=== PATIENT | female | born 1965 | race Caucasian/White ===

== ENCOUNTER 2019-08-20 06:38 | Emergency (ER) | payer OTHER ==
--- NOTE | 2019-08-20 07:32 | ERPHSYRPT ---
- History of Present Illness Time Seen by Provider: 08/20/19 07:06 Source: patient Exam Limitations: no limitations Patient Subjective Stated Complaint: pt states, "my b/p was high this morning, 159/94, so I took a clonidine and it didn't get any better". My head feels weird. Triage Nursing Assessment: wheeled pt to rm 6, pt alert and oriented, cooperative and pleasant. pt c/o htn, dizziness, top of head feels funny. Lungs clear, heart tones reg, abd soft with active bs x4 quad, non-tender. Physician History: 54 yo presented with with h/o HTN taking lisionpril/clonidine on PRN bases is here with BP 159 systolic this morning and tool clonidine , later while driving to work felt pressure bitemporal/frontal area of dull mild intensity and felt lightheaded. patient reports she had similar episodes before and was recently evaluated at [facility] with negative CT head w/wo contrast/MRI. She denies any chest pain /palpitations or SOB. She is very anxious . per patient she is feeling better at present since she has taken clonidine. denies any numbness/ tigling or weakness. no spinning sensation/blurry vision etc. per patient she checks her BP every morning and if it is less than 130 she quits antihypertensive . no h/o CAD /DM but does have vertigo at times but this is not like vertiginous sx but some pressurein frontal area. Timing/Duration: today Severity of Pain-Max: none Severity of Pain-Current: none Modifying Factors: Improves With: nothing Nitro Today/Relief: no nitro taken today Aspirin Treatment Today: no aspirin today Associated Symptoms: headaches Prior Chest Pain/Cardiac Workup: echocardiography Allergies/Adverse Reactions: No Known Drug Allergies Allergy (Unverified 08/20/19 06:51) Home Medications: Alprazolam 0.25 mg [xanAX 0.25 MG] 0.25 mg PO TID PRN PRN 08/20/19 [ History] Lisinopril 10 mg [Zestril 10 MG] 10 mg PO DAILY PRN PRN 08/20/19 [History] Meclizine HCl 25 mg PO TID PRN 08/20/19 [History] cloNIDine HCl [Clonidine HCl] 0.1 mg PO DAILY PRN PRN 08/20/19 [History] Hx Tetanus, Diphtheria Vaccination/Date Given: Yes Hx Influenza Vaccination/Date Given: No Hx Pneumococcal Vaccination/Date Given: No Immunizations Up to Date: Yes - Review of Systems Constitutional: No Symptoms Eyes: No Symptoms Ears, Nose, & Throat: No Symptoms Respiratory: No Symptoms Cardiac: No Symptoms Abdominal/Gastrointestinal: No Symptoms Genitourinary Symptoms: No Symptoms Musculoskeletal: No Symptoms Neurological: Dizziness, Headache Psychological: No Symptoms Endocrine: No Symptoms Hematologic/Lymphatic: No Symptoms - Past Medical History Pertinent Past Medical History: Yes Neurological History: Migraines ENT History: No Pertinent History Cardiac History: Hypertension Respiratory History: No Pertinent History Endocrine Medical History: Hypothyroidism Musculoskeletal History: No Pertinent History GI Medical History: No Pertinent History History: No Pertinent History Psycho-Social History: No Pertinent History Female Reproductive Disorders: No Pertinent History - Past Surgical History Past Surgical History: Yes Neuro Surgical History: No Pertinent History Cardiac: No Pertinent History Respiratory: No Pertinent History Gastrointestinal: No Pertinent History Genitourinary: No Pertinent History Musculoskeletal: Other Female Surgical History: No Pertinent History Other Surgical History: staple removed from heel - Social History Smoking Status: Never smoker Exposure to second hand smoke: Yes Drug Use: none Patient Lives Alone: No - Female History Hx Now: No - Nursing Vital Signs Nursing Vital Signs: Initial Vital Signs Temperature 97.5 F 08/20/19 06:49 Pulse Rate 88 08/20/19 06:49 Respiratory Rate 15 08/20/19 06:49 Blood Pressure 164/109 08/20/19 06:49 O2 Sat by Pulse Oximetry 99 08/20/19 06:49 Pain Scale Pain Intensity 0 - Physical Exam General Appearance: no apparent distress Eye Exam: PERRL/EOMI, eyes nml inspection Ears, Nose, Throat Exam: normal ENT inspection, TMs normal, pharynx normal Neck Exam: normal inspection, non-tender, supple, full range of motion Respiratory Exam: normal breath sounds, lungs clear Cardiovascular Exam: regular rate/rhythm, normal heart sounds, normal peripheral pulses Gastrointestinal/Abdomen Exam: soft, normal bowel sounds Back Exam: normal inspection, normal range of motion, CVA tenderness Extremity Exam: normal inspection, normal range of motion, pelvis stable Neurologic Exam: alert, oriented x 3, cooperative, activity specialist II-XII nml as tested, normal mood/affect, nml cerebellar function, nml station & gait, sensation nml Skin Exam: normal color SpO2 Interpretation: normal SpO2: 99 O2 Delivery: Room Air Ordered Tests: Active Orders 24 hr Category Date Time Status EKG-ER Only STAT Care 08/20/19 07:48 Active Orthostatic Vital Signs STAT Care 08/20/19 07:37 Active CHEST 1 VIEW (PORTABLE) Stat Exams 08/20/19 07:35 Taken CBC W DIFF Stat Lab 08/20/19 07:34 Completed CMP Stat Lab 08/20/19 07:34 Completed LIPASE Stat Lab 08/20/19 08:31 Completed NT PRO BNP Stat Lab 08/20/19 07:34 Completed TROPONIN Q3H Lab 08/20/19 07:45 Completed TROPONIN Q3H Lab 08/20/19 10:45 Ordered TROPONIN Q3H Lab 08/20/19 13:45 Ordered TROPONIN Q3H Lab 08/20/19 16:45 Ordered TROPONIN Q3H Lab 08/20/19 19:45 Ordered Medication Summary Discontinued Medications Generic Name Dose Route Start Last Admin Trade Name Freq PRN Reason Stop Dose Admin Aspirin 324 mg 08/20/19 07:36 08/20/19 07:46 Baby Aspirin 81 Mg Chew PO 08/20/19 07:37 324 mg STAT ONE Administration Aspirin Confirm 08/20/19 07:38 Baby Aspirin 81 Mg Chew Administered 08/20/19 07:39 Dose 324 mg .ROUTE .STK-MED ONE Lisinopril 10 mg 08/20/19 07:36 08/20/19 07:46 Zestril 10 Mg PO 08/20/19 07:37 10 mg STAT STA Administration Lab/Rad Data: Laboratory Result Diagrams 08/20/19 07:34 08/20/19 07:34 Laboratory Results 08/20/19 08/20/19 08/20/19 Range/Units 08:31 07:45 07:34 WBC (4.0-10.5) K/mm3 RBC (4.1-5.4) M/mm3 Hgb (12.0-16.0) gm/dl Hct (35-47) % MCV (78-100) fl MCH (26-32) pg MCHC (32-36) g/dl RDW (11.5-14.0) % Plt Count (150-450) K/mm3 MPV (6-9.5) fl Gran % (36.0-66.0) % Eos # (Auto) (0-0.5) Absolute Lymphs (auto) (1.0-4.6) Absolute Monos (auto) (0.0-1.3) Lymphocytes % (24.0-44.0) % Monocytes % (0.0-12.0) % Eosinophils % (0.00-5.0) % Basophils % (0.0-0.4) % Absolute Granulocytes (1.4-6.9) Basophils # (0-0.4) Sodium 143 (137-145) mmol/L Potassium 4.4 (3.5-5.1) mmol/L Chloride 108 H (98-107) mmol/L Carbon Dioxide 26 (22-30) mmol/L Anion Gap 14.1 (5-15) MEQ/L BUN 10 (7-17) mg/dL Creatinine 0.87 (0.52-1.04) mg/dL Estimated GFR > 60.0 ML/MIN Glucose 92 (74-106) mg/dL Calcium 9.6 (8.4-10.2) mg/dL Total Bilirubin 0.40 (0.2-1.3) mg/dL AST 30 (14-36) U/L ALT 18 (0-35) U/L Alkaline Phosphatase 65 (38-126) U/L Troponin I < 0.012 (0.000-0.034) ng/mL NT-Pro-B Natriuret Pep 73.9 (0-900) pg/mL Serum Total Protein 7.4 (6.3-8.2) g/dL Albumin 4.3 (3.5-5.0) g/dL Lipase 50 (23-300) U/L 08/20/19 Range/Units 07:34 WBC 4.2 (4.0-10.5) K/mm3 RBC 4.60 (4.1-5.4) M/mm3 Hgb 14.0 (12.0-16.0) gm/dl Hct 43.3 (35-47) % MCV 94.1 (78-100) fl MCH 30.4 (26-32) pg MCHC 32.3 (32-36) g/dl RDW 13.9 (11.5-14.0) % Plt Count 213 (150-450) K/mm3 MPV 10.5 H (6-9.5) fl Gran % 53.5 (36.0-66.0) % Eos # (Auto) 0.09 (0-0.5) Absolute Lymphs (auto) 1.37 (1.0-4.6) Absolute Monos (auto) 0.45 (0.0-1.3) Lymphocytes % 32.4 (24.0-44.0) % Monocytes % 10.6 (0.0-12.0) % Eosinophils % 2.1 (0.00-5.0) % Basophils % 1.4 (0.0-0.4) % Absolute Granulocytes 2.26 (1.4-6.9) Basophils # 0.06 (0-0.4) Sodium (137-145) mmol/L Potassium (3.5-5.1) mmol/L Chloride (98-107) mmol/L Carbon Dioxide (22-30) mmol/L Anion Gap (5-15) MEQ/L BUN (7-17) mg/dL Creatinine (0.52-1.04) mg/dL Estimated GFR ML/MIN Glucose (74-106) mg/dL Calcium (8.4-10.2) mg/dL Total Bilirubin (0.2-1.3) mg/dL AST (14-36) U/L ALT (0-35) U/L Alkaline Phosphatase (38-126) U/L Troponin I (0.000-0.034) ng/mL NT-Pro-B Natriuret Pep (0-900) pg/mL Serum Total Protein (6.3-8.2) g/dL Albumin (3.5-5.0) g/dL Lipase (23-300) U/L - Progress Progress: improved, re-examined Air Movement: good Progress Note: 54 his old is evaluated for uncontrolled hypertension with mild headache and dizzy feeling. She has nonfocal neuro exam to her stay in the ER. EKG showed normal sinus rhythm with no acute ST elevations or depressions. She has negative troponins. Chest x-ray negative for any acute findings. She has cloudy frontoparietal and I have given her routine dose of lisinopril 10 mg, evaluation fiber pressures and 130s. Her pressure sensation/lightheaded feeling is improved. She did not have any chest pain or palpitations to her stay in the ER. I have counseled the patient in length about medication compliance especially lisinopril taking regularly other than as when necessary medications. She is advised to keep a log of blood pressure and followup outpatient primary care. At this time symptoms are worsening needed return to ER which he seemed understanding. Stable for discharge. 08/20/19 09:36 Counseled pt/family regarding: lab results, diagnosis, need for follow-up, rad results - Departure Departure Disposition: Home Clinical Impression: Uncontrolled hypertension Condition: Stable Critical Care Time: No Referrals: [place] DOMINGUEZ, SINKER PULLER [Primary Care Provider] - Follow Up with PCP/3 days ( followup in 2-3 days. Keep blood pressure log) Additional Instructions: dateyour own blood pressure medications regularly as recommended. Take clonidine as needed if blood pressure greater than 160. Keep her blood pressure rule out and follow up with primary care for reevaluation. Return to ER for uncontrolled blood pressure, headache, dizziness, lightheadedness, chest pain or shortness of breath etc.
[2019-08-20] MEDS ORDERED: BABY ASPIRIN 81 MG CHEW ONE (07:38)
[2019-08-20] MEDS: BABY ASPIRIN 81 MG CHEW PO ONE (07:46)
[2019-08-20] MEDS: Zestril 10 MG PO STA (07:46)
[2019-08-20 07:50] LABS: Absolute Neutrophil Ct (ANC) 2.26 (1.4-6.9); BASOPHIL % 1.4 % (0.0-0.4); Basophil (Absolute #) 0.06 (0-0.4); Eosinophil % 2.1 % (0.00-5.0); Eosinophil (Absolute #) 0.09 (0-0.5); Hematocrit 43.3 % (35-47); Lymphocyte (Absolute #) 1.37 (1.0-4.6); Lymphocytes % 32.4 % (24.0-44.0); Mean Cell Volume 94.1 fl (78-100); Mean Corpuscular Hemoglobin 30.4 pg (26-32); Mean Corpuscular Hgb Concent. 32.3 g/dl (32-36); Mean Platelet Volume 10.5 fl (6-9.5); Monocyte (Absolute #) 0.45 (0.0-1.3); Monocytes % 10.6 % (0.0-12.0); Neutrophil % 53.5 % (36.0-66.0); Platelet Count 213 K/mm3 (150-450); Red Cell Distribution Width 13.9 % (11.5-14.0); White Blood Count 4.2 K/mm3 (4.0-10.5)
[2019-08-20 08:14] LABS: ALBUMIN 4.3 g/dL (3.5-5.0); ALKALINE PHOSPHATASE 65 U/L (38-126); ANION GAP 14.1 MEQ/L (5-15); BLOOD UREA NITROGEN 10 mg/dL (7-17); CHLORIDE 108 mmol/L (98-107); Calcium 9.6 mg/dL (8.4-10.2); Carbon Dioxide 26 mmol/L (22-30); Creatinine 1 0.87 mg/dL (0.52-1.04); Glucose 92 mg/dL (74-106); NT PRO BNP 73.9 pg/mL (0-900); Potassium 4.4 mmol/L (3.5-5.1); SGOT/AST 30 U/L (14-36); SGPT/ALT 18 U/L (0-35); SODIUM 143 mmol/L (137-145); Total Protein 7.4 g/dL (6.3-8.2)
[2019-08-20 09:22] VITALS: BP 133/95; PULSE 74
[2019-08-20 09:41] VITALS: O2SAT 99
--- NOTE | 2019-08-20 09:44 | XRAY ---
Indication: Elevated blood pressure. Lightheadedness. Comparison: May 25, 2015. Portable chest again demonstrates normal heart and lungs with incidental right upper lobe calcified granuloma. Bony thorax intact again with bilateral breast implants. No new/acute findings.
== END 2019-08-20 09:51 | disposition home or self-care (01) ==
LOC: ED 06:38
DX: I10 Essential (primary) hypertension (principal); R51 Headache; R42 Dizziness and giddiness; Z79.899 Other long term (current) drug therapy
CPT/HCPCS: 36415; 71045; 80053; 83690; 83880; 84484; 85025; 93005; 99284; A9270-GY

== ENCOUNTER 2019-09-11 05:04 | Emergency (ER) | payer OTHER ==
--- NOTE | 2019-09-11 05:22 | ERPHSYRPT ---
- History of Present Illness Source: patient Exam Limitations: no limitations Timing/Duration: intermittent, gradual onset Severity: mild Associated Symptoms: other (dizziness, numbness left upper ext) Hx Tetanus, Diphtheria Vaccination/Date Given: Yes Hx Influenza Vaccination/Date Given: No Hx Pneumococcal Vaccination/Date Given: No <YADI PERSAUD - Last Filed: 09/11/19 06:59> <NONI CAROLINA - Last Filed: 09/11/19 10:47> - History of Present Illness Time Seen by Provider: 09/11/19 05:22 Physician History: 54 y/o tearful, anxious white female with h/o htn, headaches, recurrent vertigo/ dizziness on lisinopril, clonidine, xanax and antivert present with dizziness. pt seen in this ED 08/20/19 for same issue. pt under went a recent ct head and mri of head pt reports findings negative. pt has had these sx for at least 6 months. (YADI PERSAUD) Allergies/Adverse Reactions: No Known Drug Allergies Allergy (Verified 09/11/19 05:28) Home Medications: Alprazolam 0.25 mg [xanAX 0.25 MG] 0.25 mg PO TID PRN PRN 08/20/19 [ History] Lisinopril 10 mg [Zestril 10 MG] 10 mg PO DAILY PRN PRN 08/20/19 [History] Meclizine HCl 25 mg PO TID PRN 08/20/19 [History] cloNIDine HCl [Clonidine HCl] 0.1 mg PO DAILY PRN PRN 08/20/19 [History] Levothyroxine Sodium 88 Mcg [Synthroid 88 Mcg] 88 mcg PO DAILY 09/11/19 [ History] - Review of Systems Constitutional: No Symptoms Eyes: No Symptoms Ears, Nose, & Throat: No Symptoms Respiratory: No Symptoms Cardiac: No Symptoms Abdominal/Gastrointestinal: No Symptoms Genitourinary Symptoms: No Symptoms Musculoskeletal: No Symptoms Neurological: Dizziness, Parasthesia Psychological: Anxiety Endocrine: No Symptoms Hematologic/Lymphatic: No Symptoms Immunological/Allergic: No Symptoms All Other Systems: Reviewed and Negative <YADI PERSAUD - Last Filed: 10/30/19 06:59> - Past Medical History Pertinent Past Medical History: Yes Neurological History: Migraines ENT History: No Pertinent History Cardiac History: Hypertension Respiratory History: No Pertinent History Endocrine Medical History: Hypothyroidism Musculoskeletal History: No Pertinent History GI Medical History: No Pertinent History History: No Pertinent History Psycho-Social History: No Pertinent History Female Reproductive Disorders: No Pertinent History - Past Surgical History Past Surgical History: Yes Neuro Surgical History: No Pertinent History Cardiac: No Pertinent History Respiratory: No Pertinent History Gastrointestinal: No Pertinent History Genitourinary: No Pertinent History Musculoskeletal: Other Female Surgical History: No Pertinent History Other Surgical History: staple removed from heel - Social History Smoking Status: Never smoker Exposure to second hand smoke: Yes Drug Use: none Patient Lives Alone: No <YADI PERSAUD - Last Filed: 09/11/19 06:59> - Physical Exam General Appearance: mild distress, alert, anxiety, other (tearful) Eye Exam: PERRL/EOMI, eyes nml inspection Ears, Nose, Throat Exam: normal ENT inspection, moist mucous membranes Neck Exam: normal inspection, non-tender, supple, full range of motion Respiratory Exam: normal breath sounds, lungs clear, airway intact, No chest tenderness, No respiratory distress Cardiovascular Exam: regular rate/rhythm, normal heart sounds, normal peripheral pulses Gastrointestinal/Abdomen Exam: soft, normal bowel sounds, No tenderness Pelvic Exam: not done Rectal Exam: not done Back Exam: normal inspection, normal range of motion, No CVA tenderness, No vertebral tenderness Extremity Exam: normal inspection, normal range of motion, pelvis stable Neurologic Exam: alert, oriented x 3, cooperative, web analytics developer II-XII nml as tested, normal mood/affect, nml cerebellar function, nml station & gait, sensation nml, No facial droop, No slurred speech Skin Exam: normal color, warm, dry Lymphatic Exam: No adenopathy SpO2 Interpretation: normal O2 Delivery: Room Air <YADI PERSAUD - Last Filed: 09/11/19 06:59> - Nursing Vital Signs Nursing Vital Signs: Initial Vital Signs Temperature 97.5 F 09/11/19 05:14 Pulse Rate 96 H 09/11/19 05:14 Respiratory Rate 18 09/11/19 05:14 Blood Pressure 179/117 09/11/19 05:14 O2 Sat by Pulse Oximetry 98 09/11/19 05:14 Pain Scale Pain Intensity 0 - Course Nursing assessment & vital signs reviewed: Yes EKG Interpreted by Me: RATE (81), Sinus Rhythm, NORMAL AXIS, NORMAL INTERVALS, NORMAL QRS, Other (08/20/19 comparison ekg no changes. ) <YADI PERSAUD - Last Filed: 09/11/19 06:59> Ordered Tests: Active Orders 24 hr Category Date Time Status EKG-ER Only STAT Care 09/11/19 06:13 Active NPO (ED) STAT Care 09/11/19 06:10 Active CHEST WITH CONTRAST [CT] Stat Exams 09/11/19 06:58 Completed HEAD WITHOUT CONTRAST [CT] Stat Exams 09/11/19 06:11 Completed VENOUS UNILAT/LIMITED EXTREMIT [US] Stat Exams 09/11/19 06:36 Completed CBC W DIFF Stat Lab 09/11/19 06:00 Completed CMP Stat Lab 09/11/19 06:00 Completed D-DIMER QUANTITATION Stat Lab 09/11/19 06:00 Completed PROTIME WITH INR Stat Lab 09/11/19 06:00 Completed TROPONIN Q3H Lab 09/11/19 06:00 Completed TROPONIN Q3H Lab 09/11/19 09:50 Received TROPONIN Q3H Lab 09/11/19 12:15 Ordered TROPONIN Q3H Lab 09/11/19 15:15 Ordered TROPONIN Q3H Lab 09/11/19 18:15 Ordered TROPONIN Q3H Lab 09/11/19 21:15 Ordered UA W/RFX UR CULTURE Stat Lab 09/11/19 07:23 Completed Medication Summary Discontinued Medications Generic Name Dose Route Start Last Admin Trade Name Haiderq PRN Reason Stop Dose Admin Acetaminophen 1,000 mg 09/11/19 07:28 09/11/19 07:29 Tylenol Extra Strength 500 Mg PO 09/11/19 07:29 1,000 mg STAT STA Administration Acetaminophen Confirm 09/11/19 07:27 Tylenol Extra Strength 500 Mg Administered 09/11/19 07:28 Dose 1,000 mg .ROUTE .[employer]MED ONE Lab/Rad Data: Laboratory Result Diagrams 09/11/19 06:00 09/11/19 06:00 Laboratory Results 09/11/19 09/11/19 09/11/19 Range/Units 07:23 06:00 06:00 WBC (4.0-10.5) K/mm3 RBC (4.1-5.4) M/mm3 Hgb (12.0-16.0) gm/dl Hct (35-47) % MCV (78-100) fl MCH (26-32) pg MCHC (32-36) g/dl RDW (11.5-14.0) % Plt Count (150-450) K/mm3 MPV (6-9.5) fl Gran % (36.0-66.0) % Eos # (Auto) (0-0.5) Absolute Lymphs (auto) (1.0-4.6) Absolute Monos (auto) (0.0-1.3) Lymphocytes % (24.0-44.0) % Monocytes % (0.0-12.0) % Eosinophils % (0.00-5.0) % Basophils % (0.0-0.4) % Absolute Granulocytes (1.4-6.9) Basophils # (0-0.4) PT 11.0 (9.95-12.35) SECONDS INR 0.97 (0.8-3.0) D-Dimer 899 H* (215-500) ng/mL Sodium (137-145) mmol/L Potassium (3.5-5.1) mmol/L Chloride (98-107) mmol/L Carbon Dioxide (22-30) mmol/L Anion Gap (5-15) MEQ/L BUN (7-17) mg/dL Creatinine (0.52-1.04) mg/dL Estimated GFR ML/MIN Glucose (74-106) mg/dL Calcium (8.4-10.2) mg/dL Total Bilirubin (0.2-1.3) mg/dL AST (14-36) U/L ALT (0-35) U/L Alkaline Phosphatase (38-126) U/L Troponin I < 0.012 (0.000-0.034) ng/mL Serum Total Protein (6.3-8.2) g/dL Albumin (3.5-5.0) g/dL Urine Color STRAW (YELLOW) Urine Appearance CLEAR (CLEAR) Urine pH 8.0 (5-6) Ur Specific [place] 1.005 (1.005-1.025) Urine Protein NEGATIVE (Negative) Urine Ketones NEGATIVE (NEGATIVE) Urine Blood NEGATIVE (0-5) Alejandro/ul Urine Nitrite NEGATIVE (NEGATIVE) Urine Bilirubin NEGATIVE (NEGATIVE) Urine Urobilinogen NEGATIVE (0-1) mg/dL Ur Leukocyte Esterase NEGATIVE (NEGATIVE) Urine WBC (Auto) NONE (0-5) /HPF Urine RBC (Auto) NONE (0-2) /HPF U Epithel Cells (Auto) NONE (FEW) /HPF Urine Bacteria (Auto) NONE (NEGATIVE) /HPF Urine Mucus (Auto) SLIGHT (NEGATIVE) /HPF Urine Culture Reflexed NO (NO) Urine Glucose NEGATIVE (NEGATIVE) mg/dL 09/11/19 09/11/19 Range/Units 06:00 06:00 WBC 4.2 (4.0-10.5) K/mm3 RBC 4.46 (4.1-5.4) M/mm3 Hgb 14.0 (12.0-16.0) gm/dl Hct 41.6 (35-47) % MCV 93.3 (78-100) fl MCH 31.4 (26-32) pg MCHC 33.7 (32-36) g/dl RDW 13.4 (11.5-14.0) % Plt Count 226 (150-450) K/mm3 MPV 10.5 H (6-9.5) fl Gran % 45.0 (36.0-66.0) % Eos # (Auto) 0.12 (0-0.5) Absolute Lymphs (auto) 1.76 (1.0-4.6) Absolute Monos (auto) 0.39 (0.0-1.3) Lymphocytes % 42.1 (24.0-44.0) % Monocytes % 9.3 (0.0-12.0) % Eosinophils % 2.9 (0.00-5.0) % Basophils % 0.7 (0.0-0.4) % Absolute Granulocytes 1.88 (1.4-6.9) Basophils # 0.03 (0-0.4) PT (9.95-12.35) SECONDS INR (0.8-3.0) D-Dimer (215-500) ng/mL Sodium 144 (137-145) mmol/L Potassium 3.9 (3.5-5.1) mmol/L Chloride 108 H (98-107) mmol/L Carbon Dioxide 28 (22-30) mmol/L Anion Gap 11.6 (5-15) MEQ/L BUN 11 (7-17) mg/dL Creatinine 0.83 (0.52-1.04) mg/dL Estimated GFR > 60.0 ML/MIN Glucose 94 (74-106) mg/dL Calcium 10.1 (8.4-10.2) mg/dL Total Bilirubin 0.40 (0.2-1.3) mg/dL AST 37 H (14-36) U/L ALT 19 (0-35) U/L Alkaline Phosphatase 63 (38-126) U/L Troponin I (0.000-0.034) ng/mL Serum Total Protein 7.4 (6.3-8.2) g/dL Albumin 4.2 (3.5-5.0) g/dL Urine Color (YELLOW) Urine Appearance (CLEAR) Urine pH (5-6) Ur Specific [place] (1.005-1.025) Urine Protein (Negative) Urine Ketones (NEGATIVE) Urine Blood (0-5) Alejandro/ul Urine Nitrite (NEGATIVE) Urine Bilirubin (NEGATIVE) Urine Urobilinogen (0-1) mg/dL Ur Leukocyte Esterase (NEGATIVE) Urine WBC (Auto) (0-5) /HPF Urine RBC (Auto) (0-2) /HPF U Epithel Cells (Auto) (FEW) /HPF Urine Bacteria (Auto) (NEGATIVE) /HPF Urine Mucus (Auto) (NEGATIVE) /HPF Urine Culture Reflexed (NO) Urine Glucose (NEGATIVE) mg/dL <YADI PERSAUD - Last Filed: 09/11/19 06:59> - Progress Progress: improved, re-examined Counseled pt/family regarding: lab results, diagnosis, need for follow-up, rad results <NONI CAROLINA - Last Filed: 09/11/19 10:47> - Progress Progress Note: 09/11/19 06:[address] [place]. i reviewed pt hx and condition with him. i reviewed list of pending studies (YADI PERSAUD) 54 years old they state that to me at the end of Dr. Enrique shift with pending workup. Patient presented with dizziness/lightheadedness which is going on for months, has been evaluated at [facility] with negative CT /MRI head. She has numbness in the left medial hand intermittently for quite some time and today she's felt numbness in the left medial forearm area with some burning sensation. She does not have any altered sensation at present. This could be isolated to lead related to ulnar nerve compression. She does not have any other focal neuro deficit. Broad workup was done including CT head which is negative. Negative troponins x2. She has negative ultrasound left upper extremity and CTA chest. Patient is very anxious, recommended outpatient followup with primary-care/neurology for reevaluation. Discuss signs symptoms or worsening itching return to the ER but she seems understanding. Stable for discharge. 09/11/19 10:40 (NONI CAROLINA) <YADI PERSAUD - Last Filed: 09/11/19 06:59> - Departure Departure Disposition: Home Critical Care Time: No <NONI CAROLNIA - Last Filed: 09/11/19 10:47> - Departure Clinical Impression: Dizziness, Anxiety Condition: Stable Referrals: DOCTOR,NO FAMILY [Primary Care Provider] - LUBA SINGH MD [ACTIVE STAFF] - Follow Up with PCP (1-2 days ) Additional Instructions: followup with primary care and neurology for reevaluation. Return to ER for any worsening.
[2019-09-11 06:22] LABS: Absolute Neutrophil Ct (ANC) 1.88 (1.4-6.9); BASOPHIL % 0.7 % (0.0-0.4); Basophil (Absolute #) 0.03 (0-0.4); Eosinophil % 2.9 % (0.00-5.0); Eosinophil (Absolute #) 0.12 (0-0.5); Hematocrit 41.6 % (35-47); Lymphocyte (Absolute #) 1.76 (1.0-4.6); Lymphocytes % 42.1 % (24.0-44.0); Mean Cell Volume 93.3 fl (78-100); Mean Corpuscular Hemoglobin 31.4 pg (26-32); Mean Corpuscular Hgb Concent. 33.7 g/dl (32-36); Mean Platelet Volume 10.5 fl (6-9.5); Monocyte (Absolute #) 0.39 (0.0-1.3); Monocytes % 9.3 % (0.0-12.0); Platelet Count 226 K/mm3 (150-450); Red Blood Count 4.46 M/mm3 (4.1-5.4); Red Cell Distribution Width 13.4 % (11.5-14.0); White Blood Count 4.2 K/mm3 (4.0-10.5)
[2019-09-11 06:24] LABS: INR 0.97 (0.8-3.0)
[2019-09-11 06:29] LABS: ALBUMIN 4.2 g/dL (3.5-5.0); ALKALINE PHOSPHATASE 63 U/L (38-126); ANION GAP 11.6 MEQ/L (5-15); BLOOD UREA NITROGEN 11 mg/dL (7-17); CHLORIDE 108 mmol/L (98-107); Calcium 10.1 mg/dL (8.4-10.2); Carbon Dioxide 28 mmol/L (22-30); Creatinine 1 0.83 mg/dL (0.52-1.04); Glucose 94 mg/dL (74-106); Potassium 3.9 mmol/L (3.5-5.1); SGOT/AST 37 U/L (14-36); SGPT/ALT 19 U/L (0-35); SODIUM 144 mmol/L (137-145); Total Protein 7.4 g/dL (6.3-8.2)
[2019-09-11] MEDS ORDERED: TYLENOL EXTRA STRENGTH 500 MG ONE (07:27)
[2019-09-11] MEDS ORDERED: TYLENOL EXTRA STRENGTH 500 MG PO STA (07:28)
[2019-09-11 08:39] LABS: Appearance CLEAR (CLEAR); Bilirubin NEGATIVE (NEGATIVE); Blood NEGATIVE Ery/ul (0-5); Glucose NEGATIVE (NEGATIVE); Ketones NEGATIVE (NEGATIVE); Leukocyte Esterase NEGATIVE (NEGATIVE); Mucus SLIGHT /HPF (NEGATIVE); Nitrite NEGATIVE (NEGATIVE); Protein,Urine Dip NEGATIVE (Negative); Specific Gravity 1.005 (1.005-1.025); Urobilinogen NEGATIVE mg/dL (0-1)
[2019-09-11 08:44] VITALS: BP 127/73
--- NOTE | 2019-09-11 08:44 | XRAY ---
Indication: Left upper extremity numbness. Dizziness. Multiple contiguous axial images obtained through the head without contrast. Comparison: None Age-appropriate global atrophy and minimal periventricular degenerative micro-ischemia. No acute intracranial hemorrhage, abnormal extra-axial fluid collection, or mass effect. Fourth ventricle is midline without hydrocephalus. Streeter-white matter differentiation preserved. Bony calvarium intact. Visualized paranasal sinuses and mastoid air cells are clear. Impression: Normal aging brain. No acute intracranial abnormalities. CTDI 58.66
--- NOTE | 2019-09-11 08:51 | XRAY ---
Indication: Left arm numbness. Two-dimensional sonogram and color Doppler imaging of the major venous vessels of the left upper extremity was performed. Comparison: None No thrombus seen in the visualized left internal jugular, subclavian, axillary, cephalic, brachial, basilic, radial, and ulnar veins. Veins demonstrate normal compressibility. Venous waveforms are normal with and without augmentation. Impression: Left upper extremity negative for DVT.
--- NOTE | 2019-09-11 09:39 | XRAY ---
Indication: Elevated d-dimer. Multiple contiguous axial images obtained through the chest using 80 cc Isovue 370 contrast and PE protocol. Comparison: None There is good opacification of the pulmonary arteries including lobar and segmental branches. No filling defect or pulmonary embolus. Heart is not enlarged. Aorta is normal in course and caliber. No pathologic mediastinal/hilar lymphadenopathy. Lungs are inflated with minimal bilateral dependent atelectasis, minimal bibasilar fibrosis/scarring, and tiny right upper lobe calcified granuloma. No suspicious pulmonary mass, infiltrate, or effusion. Bony thorax intact. There are bilateral breast implants. Limited upper abdomen demonstrates 1.3 cm peripheral right lobe hepatic cyst versus hemangioma. Impression: 1. Negative pulmonary embolus. No acute cardiopulmonary abnormalities. 2. Incidental minimal fibrosis/scarring, right upper lobe calcified granuloma, bilateral breast implants, and hepatic cyst versus hemangioma. CT DI 7.89
[2019-09-11 10:27] VITALS: O2SAT 100
[2019-09-11 10:49] VITALS: PULSE 58
== END 2019-09-11 11:19 | disposition home or self-care (01) ==
LOC: ED 05:04
DX: R42 Dizziness and giddiness (principal); F41.9 Anxiety disorder, unspecified
CPT/HCPCS: 36000; 36415; 70450; 71260; 80053; 81001; 84484; 85025; 85379; 85610; 93005; 93971; 99284; A9270-GY

== ENCOUNTER 2020-04-12 13:54 | Emergency (ER) | payer OTHER ==
[2020-04-12 15:03] LABS: Absolute Neutrophil Ct (ANC) 4.25 (1.4-6.9); BASOPHIL % 0.4 % (0.0-0.4); Basophil (Absolute #) 0.03 (0-0.4); Eosinophil % 1.5 % (0.00-5.0); Hematocrit 40.8 % (35-47); Hemoglobin 13.7 gm/dl (12.0-16.0); Lymphocyte (Absolute #) 1.87 (1.0-4.6); Lymphocytes % 27.4 % (24.0-44.0); Mean Cell Volume 93.4 fl (78-100); Mean Corpuscular Hemoglobin 31.4 pg (26-32); Mean Corpuscular Hgb Concent. 33.6 g/dl (32-36); Mean Platelet Volume 10.2 fl (7.5-11.0); Monocyte (Absolute #) 0.57 (0.0-1.3); Monocytes % 8.4 % (0.0-12.0); Neutrophil % 62.3 % (36.0-66.0); Platelet Count 240 K/mm3 (150-450); Red Blood Count 4.37 M/mm3 (4.1-5.4); White Blood Count 6.8 K/mm3 (4.0-10.5)
[2020-04-12 15:05] LABS: Appearance CLEAR (CLEAR); Bilirubin NEGATIVE (NEGATIVE); Blood NEGATIVE Ery/ul (0-5); Glucose NEGATIVE (NEGATIVE); Ketones NEGATIVE (NEGATIVE); Leukocyte Esterase NEGATIVE (NEGATIVE); Mucus SLIGHT /HPF (NEGATIVE); Nitrite NEGATIVE (NEGATIVE); Protein,Urine Dip NEGATIVE (Negative); Specific Gravity 1.005 (1.005-1.025); Urobilinogen NEGATIVE mg/dL (0-1)
[2020-04-12 15:14] LABS: ALBUMIN 4.6 g/dL (3.5-5.0); ALKALINE PHOSPHATASE 78 U/L (38-126); ANION GAP 15.9 MEQ/L (5-15); BLOOD UREA NITROGEN 15 mg/dL (7-17); CHLORIDE 100 mmol/L (98-107); Calcium 9.7 mg/dL (8.4-10.2); Carbon Dioxide 26 mmol/L (22-30); Glucose 95 mg/dL (74-106); MAGNESIUM 2.1 mg/dL (1.6-2.3); Potassium 3.6 mmol/L (3.5-5.1); SGOT/AST 34 U/L (14-36); SGPT/ALT 21 U/L (0-35); SODIUM 139 mmol/L (137-145); Total Protein 7.7 g/dL (6.3-8.2)
--- NOTE | 2020-04-12 16:19 | ERPHSYRPT ---
- History of Present Illness Time Seen by Provider: 04/12/20 14:15 Source: patient Exam Limitations: no limitations Patient Subjective Stated Complaint: pt to ER with complaints of confusion or a drunk feeling since around 0930 this morning. pt states she has had episodes like this before and has seen specialist in [place] for it. pt states BP has been high. Triage Nursing Assessment: pt A&Ox4. pt ambulatory with assist. pt answering questions clearly. pt Physician History: 54 years old female with history of hypertension, hypothyroidism, migraine, issues with the balance is currently doing follow-up with balance clinic presented in the ER with weird feeling of confusion/trouble concentrating and feeling drunk and as if she is sleepy all the time. This started around 9:30 AM today. It lasted for almost an hour and improved. No seizure-like activity noticed. No headache. Patient report having similar symptoms multiple times in the past without any warning signs and has been thoroughly evaluated with MRI , CT head with no acute findings. Patient denies any numbness tingling or focal weakness. Patient is very anxious, starts crying while interview as she is frustrated, does not know what is going on with her and it is been going on for such a long time no one can figure it out. Denies any chest pain palpitations or shortness of breath. Denies any visual symptoms, facial weakness or difficulty speech. Timing/Duration: today, sudden, improved Severity: moderate Character of Deficits: none Deficits: no difficulties Baseline/Normal Cognition: alert oriented x 3 Current Cognition: alert oriented x 3 Baseline Gait: walks w/o assistance Associated Symptoms: confusion, fatigue, No muscle spasms, No numbness/tingling in legs/feet, No ringing in ears, No trouble walking Allergies/Adverse Reactions: No Known Drug Allergies Allergy (Verified 04/12/20 14:12) Home Medications: Alprazolam 0.25 mg [xanAX 0.25 MG] 0.25 mg PO TID PRN PRN 08/20/19 [ History] Lisinopril 10 mg [Zestril 10 MG] 10 mg PO DAILY PRN PRN 08/20/19 [History] cloNIDine HCL [Clonidine HCl] 0.1 mg PO DAILY PRN PRN 08/20/19 [History] Levothyroxine Sodium 88 Mcg [Synthroid 88 Mcg] 88 mcg PO DAILY 09/11/19 [ History] Hx Tetanus, Diphtheria Vaccination/Date Given: Yes Hx Influenza Vaccination/Date Given: No Hx Pneumococcal Vaccination/Date Given: No Immunizations Up to Date: Yes Travel Risk - International Travel Have you traveled outside of the country in past 3 weeks: No Have you or anyone close to you been diagnosed with or: No Do your reside in a community with a known COVID-19 case?: Yes If Yes where:: [place] - Coronavirus Screening Has patient experienced Coronavirus symptoms: No - Review of Systems Constitutional: Fatigue Eyes: No Symptoms Ears, Nose, & Throat: No Symptoms Respiratory: No Symptoms Cardiac: No Symptoms Abdominal/Gastrointestinal: No Symptoms Genitourinary Symptoms: No Symptoms Musculoskeletal: No Symptoms Skin: No Symptoms Psychological: No Symptoms Endocrine: No Symptoms Hematologic/Lymphatic: No Symptoms Immunological/Allergic: No Symptoms - Past Medical History Pertinent Past Medical History: Yes Neurological History: Migraines ENT History: No Pertinent History Cardiac History: Hypertension Respiratory History: No Pertinent History Endocrine Medical History: Hypothyroidism Musculoskeletal History: No Pertinent History GI Medical History: No Pertinent History History: No Pertinent History Psycho-Social History: No Pertinent History Female Reproductive Disorders: No Pertinent History - Past Surgical History Past Surgical History: Yes Neuro Surgical History: No Pertinent History Cardiac: No Pertinent History Respiratory: No Pertinent History Gastrointestinal: No Pertinent History Genitourinary: No Pertinent History Musculoskeletal: Other Female Surgical History: No Pertinent History Other Surgical History: staple removed from heel - Social History Smoking Status: Never smoker Exposure to second hand smoke: Yes Drug Use: none Patient Lives Alone: No - Female History Hx Now: No - Nursing Vital Signs Nursing Vital Signs: Initial Vital Signs Temperature 98.0 F 04/12/20 14:01 Pulse Rate 105 H 04/12/20 14:01 Respiratory Rate 12 04/12/20 14:01 Blood Pressure 185/117 04/12/20 14:01 O2 Sat by Pulse Oximetry 99 04/12/20 14:01 Pain Scale Pain Intensity 0 - [place] Coma Scale Best Eye Response ([place]): (4) open spontaneously Best Verbal Response ([place]): (5) oriented Best Motor Response ([place]): (6) obeys commands [place] Total: 15 - Physical Exam General Appearance: no apparent distress, alert, anxiety Eye Exam: bilateral eye: normal inspection, PERRL, EOMI Ears, Nose, Throat Exam: normal ENT inspection, TMs normal, pharynx normal Neck Exam: normal inspection, non-tender, supple, full range of motion Respiratory: normal breath sounds, chest tenderness, lungs clear Cardiovascular: regular rate/rhythm, normal heart sounds Gastrointestinal: soft, normal bowel sounds, No tenderness Back Exam: normal inspection, normal range of motion Extremity Exam: normal inspection, normal range of motion Mental Status: alert, oriented x 3, cooperative edge baster Exam: normal hearing, normal speech, PERRL Coordination/Gait: normal finger to nose, normal gait, normal cerebellar function Motor/Sensory: no motor deficit, no sensory deficit, no pronator drift, negative Babinski's sign DTR: bicep (R): 2+, bicep (L): 2+, knee (R): 2+, knee (L): 2+ Skin Exam: normal color SpO2 Interpretation: normal SpO2: 100 O2 Delivery: Room Air - Course Nursing assessment & vital signs reviewed: Yes EKG Interpreted by Me: RATE (94), NORMAL AXIS, NORMAL INTERVALS, NORMAL QRS Ordered Tests: Active Orders 24 hr Category Date Time Status [facility] Representative STAT Care 04/12/20 14:42 Active EKG-ER Only STAT Care 04/12/20 14:41 Active CHEST 1 VIEW (PORTABLE) Stat Exams 04/12/20 14:42 Taken HEAD WITHOUT CONTRAST [CT] Stat Exams 04/12/20 14:42 Taken CBC W DIFF Stat Lab 04/12/20 15:01 Completed CMP Stat Lab 04/12/20 15:01 Completed MAGNESIUM Stat Lab 04/12/20 15:01 Completed TROPONIN Q3H Lab 04/12/20 15:01 Completed UA W/RFX UR CULTURE Stat Lab 04/12/20 15:01 Completed Lab/Rad Data: Laboratory Result Diagrams 04/12/20 15:01 04/12/20 15:01 Laboratory Results 04/12/20 04/12/20 04/12/20 Range/Units 15:01 15:01 15:01 WBC (4.0-10.5) K/mm3 RBC (4.1-5.4) M/mm3 Hgb (12.0-16.0) gm/dl Hct (35-47) % MCV (78-100) fl MCH (26-32) pg MCHC (32-36) g/dl RDW (11.5-14.0) % Plt Count (150-450) K/mm3 MPV (7.5-11.0) fl Gran % (36.0-66.0) % Eos # (Auto) (0-0.5) Absolute Lymphs (auto) (1.0-4.6) Absolute Monos (auto) (0.0-1.3) Lymphocytes % (24.0-44.0) % Monocytes % (0.0-12.0) % Eosinophils % (0.00-5.0) % Basophils % (0.0-0.4) % Absolute Granulocytes (1.4-6.9) Basophils # (0-0.4) Sodium 139 (137-145) mmol/L Potassium 3.6 (3.5-5.1) mmol/L Chloride 100 (98-107) mmol/L Carbon Dioxide 26 (22-30) mmol/L Anion Gap 15.9 H (5-15) MEQ/L BUN 15 (7-17) mg/dL Creatinine 0.80 (0.52-1.04) mg/dL Estimated GFR > 60.0 ML/MIN Glucose 95 (74-106) mg/dL Calcium 9.7 (8.4-10.2) mg/dL Magnesium 2.1 (1.6-2.3) mg/dL Total Bilirubin 0.40 (0.2-1.3) mg/dL AST 34 (14-36) U/L ALT 21 (0-35) U/L Alkaline Phosphatase 78 (38-126) U/L Troponin I < 0.012 (0.000-0.034) ng/mL Serum Total Protein 7.7 (6.3-8.2) g/dL Albumin 4.6 (3.5-5.0) g/dL Urine Color STRAW (YELLOW) Urine Appearance CLEAR (CLEAR) Urine pH 6.0 (5-6) Ur Specific [place] 1.005 (1.005-1.025) Urine Protein NEGATIVE (Negative) Urine Ketones NEGATIVE (NEGATIVE) Urine Blood NEGATIVE (0-5) Alejandro/ul Urine Nitrite NEGATIVE (NEGATIVE) Urine Bilirubin NEGATIVE (NEGATIVE) Urine Urobilinogen NEGATIVE (0-1) mg/dL Ur Leukocyte Esterase NEGATIVE (NEGATIVE) Urine WBC (Auto) NONE (0-5) /HPF Urine RBC (Auto) NONE (0-2) /HPF U Epithel Cells (Auto) NONE (FEW) /HPF Urine Bacteria (Auto) NONE (NEGATIVE) /HPF Urine Mucus (Auto) SLIGHT (NEGATIVE) /HPF Urine Culture Reflexed NO (NO) Urine Glucose NEGATIVE (NEGATIVE) mg/dL 04/12/20 Range/Units 15:01 WBC 6.8 (4.0-10.5) K/mm3 RBC 4.37 (4.1-5.4) M/mm3 Hgb 13.7 (12.0-16.0) gm/dl Hct 40.8 (35-47) % MCV 93.4 (78-100) fl MCH 31.4 (26-32) pg MCHC 33.6 (32-36) g/dl RDW 13.0 (11.5-14.0) % Plt Count 240 (150-450) K/mm3 MPV 10.2 (7.5-11.0) fl Gran % 62.3 (36.0-66.0) % Eos # (Auto) 0.10 (0-0.5) Absolute Lymphs (auto) 1.87 (1.0-4.6) Absolute Monos (auto) 0.57 (0.0-1.3) Lymphocytes % 27.4 (24.0-44.0) % Monocytes % 8.4 (0.0-12.0) % Eosinophils % 1.5 (0.00-5.0) % Basophils % 0.4 (0.0-0.4) % Absolute Granulocytes 4.25 (1.4-6.9) Basophils # 0.03 (0-0.4) Sodium (137-145) mmol/L Potassium (3.5-5.1) mmol/L Chloride (98-107) mmol/L Carbon Dioxide (22-30) mmol/L Anion Gap (5-15) MEQ/L BUN (7-17) mg/dL Creatinine (0.52-1.04) mg/dL Estimated GFR ML/MIN Glucose (74-106) mg/dL Calcium (8.4-10.2) mg/dL Magnesium (1.6-2.3) mg/dL Total Bilirubin (0.2-1.3) mg/dL AST (14-36) U/L ALT (0-35) U/L Alkaline Phosphatase (38-126) U/L Troponin I (0.000-0.034) ng/mL Serum Total Protein (6.3-8.2) g/dL Albumin (3.5-5.0) g/dL Urine Color (YELLOW) Urine Appearance (CLEAR) Urine pH (5-6) Ur Specific [place] (1.005-1.025) Urine Protein (Negative) Urine Ketones (NEGATIVE) Urine Blood (0-5) Alejandro/ul Urine Nitrite (NEGATIVE) Urine Bilirubin (NEGATIVE) Urine Urobilinogen (0-1) mg/dL Ur Leukocyte Esterase (NEGATIVE) Urine WBC (Auto) (0-5) /HPF Urine RBC (Auto) (0-2) /HPF U Epithel Cells (Auto) (FEW) /HPF Urine Bacteria (Auto) (NEGATIVE) /HPF Urine Mucus (Auto) (NEGATIVE) /HPF Urine Culture Reflexed (NO) Urine Glucose (NEGATIVE) mg/dL - Progress Progress: improved, re-examined Progress Note: 04/12/20 patient has nonfocal neuro exam and here. She is very anxious. I have done stroke work-up with CT negative for any acute findings patient has similar episodes multiple times in the past and has been evaluated outpatient by ENT and neurologist. I do not know the exact cause of her symptoms. I have consulted tele neurology who have evaluated patient and do not think patient has symptoms and presentation consistent with CVA, recommended outpatient EEG/ sleep study and some other labs. Part of her symptoms could be secondary to anxiety. Recommended outpatient follow-up with neurology which patient has been doing already. At this point I do not think patient needs to be admitted and is stable for discharge with outpatient follow-up. Discussed signs symptoms of worsening needing return to ER which she seemed understanding. Discussed with Dr.: Other (teleneuro Dr. Cutler) Counseled pt/family regarding: lab results, diagnosis, need for follow-up, rad results - Departure Departure Disposition: Home Clinical Impression: Neurological complaint, Anxiety Condition: Stable Critical Care Time: No Referrals: LUBA SINGH MD [Primary Care Provider] - (1-2 days for re evaluation and getting out patient workup like YUNIEL, TSH, Mag, vitamin D, B12, EEG AND SLEEP STUDY ) DALE PEREZ [NON-STAFF PHY W/O PRIVILEGES] - (For reevaluation, sleep study, EEG Follow-up in 1 to 3 days) Additional Instructions: Follow-up with your primary care for further testing like TSH/magnesium/vitamin B12/vitamin D/YUNIEL/sleep study and EEG. Follow-up with neurology Dr. Sutherland for further evaluation. Return to ER for any worsening.
[2020-04-12 17:30] VITALS: BP 133/87; PULSE 88
[2020-04-12 20:22] VITALS: O2SAT 100
--- NOTE | 2020-04-12 22:28 | XRAY ---
Indication: Confusion. Comparison: August 20, 2019. Portable chest again demonstrates normal heart, lungs, and bony thorax with incidental right upper lung calcified granuloma. No new/acute findings.
--- NOTE | 2020-04-12 22:32 | XRAY ---
Indication: Infusion. Acute mental status change. Multiple contiguous axial images obtained through the head without contrast. Comparison: September 11, 2019. Again age-appropriate global atrophy and minimal periventricular degenerative micro-ischemia bilaterally. No acute intracranial hemorrhage, abnormal extra-axial fluid collection, or mass effect. Fourth ventricle is midline without hydrocephalus. Bony calvarium intact. Visualized paranasal sinuses and mastoid air cells are clear. Impression: Atrophy and degenerative micro-ischemia within normal limits for patient's age. No new or acute intracranial abnormalities. Comment: Preliminary interpretation was made by [facility]. No critical discrepancy.
== END 2020-04-12 17:36 | disposition home or self-care (01) ==
LOC: ED 13:54
DX: R29.818 Other symptoms and signs involving the nervous system (principal); F41.9 Anxiety disorder, unspecified; R41.0 Disorientation, unspecified; I10 Essential (primary) hypertension; E03.9 Hypothyroidism, unspecified; Z79.899 Other long term (current) drug therapy
CPT/HCPCS: 36415; 70450; 71045; 80053; 81001; 83735; 84484; 85025; 93005; 93041; 99284

== ENCOUNTER 2020-11-12 20:34 | Emergency (ER) | payer OTHER ==
[2020-11-12] MEDS ORDERED: Zofran 4 MG/2 ML VIAL IV ONE (21:01)
[2020-11-12] MEDS ORDERED: Sodium Chloride 0.9% 1000 ML 1,000 ML IV STA (21:01)
[2020-11-12] MEDS ORDERED: Sodium Chloride 0.9% 1000 ML 1,000 ML ONE (21:13)
[2020-11-12] MEDS ORDERED: Zofran 4 MG/2 ML VIAL ONE (21:13)
[2020-11-12 21:15] LABS: Absolute Neutrophil Ct (ANC) 3.48 (1.4-6.9); BASOPHIL % 0.7 % (0.0-0.4); Basophil (Absolute #) 0.07 (0-0.4); Eosinophil % 5.7 % (0.00-5.0); Eosinophil (Absolute #) 0.56 (0-0.5); Hematocrit 40.9 % (35-47); Hemoglobin 13.3 gm/dl (12.0-16.0); Lymphocyte (Absolute #) 4.92 (1.0-4.6); Lymphocytes % 50.3 % (24.0-44.0); Mean Cell Volume 95.6 fl (78-100); Mean Corpuscular Hemoglobin 31.1 pg (26-32); Mean Corpuscular Hgb Concent. 32.5 g/dl (32-36); Mean Platelet Volume 10.6 fl (7.5-11.0); Monocyte (Absolute #) 0.76 (0.0-1.3); Monocytes % 7.8 % (0.0-12.0); Neutrophil % 35.5 % (36.0-66.0); Platelet Count 257 K/mm3 (150-450); Red Blood Count 4.28 M/mm3 (4.1-5.4); Red Cell Distribution Width 13.2 % (11.5-14.0); White Blood Count 9.8 K/mm3 (4.0-10.5)
[2020-11-12] MEDS ORDERED: Ativan 1 MG ONE (21:27)
[2020-11-12 21:28] LABS: ALBUMIN 4.6 g/dL (3.5-5.0); ALKALINE PHOSPHATASE 72 U/L (38-126); ANION GAP 15.4 MEQ/L (5-15); BLOOD UREA NITROGEN 19 mg/dL (7-17); CHLORIDE 106 mmol/L (98-107); Calcium 9.8 mg/dL (8.4-10.2); Carbon Dioxide 21 mmol/L (22-30); Creatinine 1 0.99 mg/dL (0.52-1.04); EST GLOMERULAR FILTRATION RATE > 60.0 ML/MIN; ETHYL ALCOHOL 32 mg/dL (0-10); Glucose 91 mg/dL (74-106); MAGNESIUM 2.5 mg/dL (1.6-2.3); Potassium 3.4 mmol/L (3.5-5.1); SGOT/AST 35 U/L (14-36); SGPT/ALT 24 U/L (0-35); SODIUM 139 mmol/L (137-145); Total Protein 7.8 g/dL (6.3-8.2)
--- NOTE | 2020-11-12 21:29 | ERPHSYRPT ---
- History of Present Illness Time Seen by Provider: 11/12/20 20:37 Patient Subjective Stated Complaint: per ems, pt has been c/o dizziness and blurred vision. pt states she may have passed out and was incont at scene. pt st ates she had 3 small glasses of wine tonight. pupils equal and rective. bilat upper and lower ext strength equal and wnl. Triage Nursing Assessment: pt alert and oriented, answers questions approp. pt arrive [facility] ambulance[facility] assist of 3. respirations nonlabored with lungs cta. skin pink warm and dry. Physician History: 55 years old female with history of hypertension, hypothyroidism, anxiety, issues with balance is brought in the ER by EMS with chief complaint of dizziness and lightheadedness prior to arrival. Patient reports she had 3 glasses of wine [address] and started to feel weird with difficulty se eing straight having some blurry vision, leading to collapse and transient loss of consciousness for few seconds on presentation in the ER she is complaining of. She was also found to be incontinent of urine although she does not know how that happened. Numbness/tingling sensation on the left face upper and lower extremities. Denies any chest pain palpitations or shortness of breath. Denies any upper or lower extremity weakness but generally weak weak tired and lethargic. Denies having headaches and no seizure-like activity noticed by friends. Patient reports having similar symptoms in the past as well and MRI brain was negative. She also had a Holter monitoring done with a brief run of Lilo jennings with [facility] but does not take any anticoagulants. Timing/Duration: today, improved Severity: moderate Character of Deficits: altered sensation Deficits: no difficulties Baseline/Normal Cognition: alert oriented x 3 Current Cognition: alert oriented x 3 Baseline Gait: walks w/o assistance Associated Symptoms: denies symptoms, vision changes, No numbness/tingling in legs/feet Allergies/Adverse Reactions: No Known Drug Allergies Allergy (Verified 11/12/20 21:03) Home Medications: Alprazolam 0.25 mg [xanAX 0.25 MG] 0.25 mg PO TID PRN PRN 08/20/19 [History] Lisinopril 10 mg [Zestril 10 MG] 5 mg PO DAILY 08/20/19 [History] Levothyroxine Sodium 88 Mcg [Synthroid 88 Mcg] 75 mcg PO DAILY 09/11/19 [History] Metoprolol Succinate 25 mg Xl* [Toprol-Xl 25MG Tablets] 25 mg PO DAILY 11/12/20 [History] Hx Tetanus, Diphtheria Vaccination/Date Given: Yes Hx Influenza Vaccination/Date Given: No Hx Pneumococcal Vaccination/Date Given: No Travel Risk - International Travel Have you traveled outside of the country in past 3 weeks: No - Coronavirus Screening Are you exhibiting any of the following symptoms?: No Close contact with a COVID-19 positive Pt in past 14-21 Days: No - Review of Systems Constitutional: Fatigue Eyes: Vision Changes Ears, Nose, & Throat: No Symptoms Respiratory: No Symptoms Cardiac: No Symptoms Abdominal/Gastrointestinal: No Symptoms Genitourinary Symptoms: No Symptoms Musculoskeletal: No Symptoms Skin: No Symptoms Neurological: Dizziness Psychological: Anxiety Endocrine: No Symptoms Hematologic/Lymphatic: No Symptoms Immunological/Allergic: No Symptoms - Past Medical History Pertinent Past Medical History: Yes Neurological History: Migraines ENT History: No Pertinent History Cardiac History: Hypertension Respiratory History: No Pertinent History Endocrine Medical History: Hypothyroidism Musculoskeletal History: No Pertinent History GI Medical History: No Pertinent History History: No Pertinent History Psycho-Social History: No Pertinent History Female Reproductive Disorders: No Pertinent History - Past Surgical History Past Surgical History: Yes Neuro Surgical History: No Pertinent History Cardiac: No Pertinent History Respiratory: No Pertinent History Gastrointestinal: No Pertinent History Genitourinary: No Pertinent History Musculoskeletal: Other Female Surgical History: No Pertinent History Other Surgical History: staple removed from heel - Social History Smoking Status: Never smoker Exposure to second hand smoke: Yes Drug Use: none Patient Lives Alone: No - Nursing Vital Signs Nursing Vital Signs: Initial Vital Signs Temperature 97.8 F 11/12/20 20:37 Pulse Rate 72 11/12/20 20:37 Respiratory Rate 16 11/12/20 20:37 Blood Pressure 111/77 11/12/20 20:37 O2 Sat by Pulse Oximetry 100 11/12/20 20:37 Pain Scale Pain Intensity 0 - Martin Coma Scale Best Eye Response (Martin): (4) open spontaneously Best Verbal Response ([place]): (5) oriented Best Motor Response ([place]): (6) obeys commands [place] Total: 15 - Physical Exam General Appearance: no apparent distress, alert, anxiety Eye Exam: bilateral eye: normal inspection, PERRL, EOMI Ears, Nose, Throat Exam: normal ENT inspection, TMs normal, pharynx normal Neck Exam: normal inspection, non-tender, supple, full range of motion Respiratory: normal breath sounds, lungs clear Cardiovascular: regular rate/rhythm, normal heart sounds Gastrointestinal: soft, normal bowel sounds, No tenderness Back Exam: normal inspection, normal range of motion Extremity Exam: normal inspection, normal range of motion Mental Status: alert, oriented x 3, cooperative, 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: normal hearing, normal speech, PERRL Coordination/Gait: normal finger to nose Motor/Sensory: no motor deficit, no pronator drift, negative Babinski's sign, sensory deficit (Mild decrease sensation of touch in the left half of body), No pronator drift (R), No pronator drift (L) DTR: bicep (R): 2+, bicep (L): 2+, knee (R): 2+, knee (L): 2+ Skin Exam: normal color SpO2 Interpretation: normal SpO2: 100 O2 Delivery: Room Air - Course EKG Interpreted by Me: RATE (80), Sinus Rhythm, NORMAL AXIS, NORMAL INTERVALS, NORMAL QRS Ordered Tests: Active Orders 24 hr Category Date Time Status EKG-ER Only STAT Care 11/12/20 21:01 Active IV Insertion STAT Care 11/12/20 21:01 Active Orthostatic Vital Signs STAT Care 11/12/20 21:02 Active CHEST 1 VIEW (PORTABLE) Stat Exams 11/12/20 21:[address] ANGIOGRAPHY NECK [CT] Stat Exams 11/12/20 22:34 Taken CTA HEAD W AND/OR WO CONTRAST [CT] Stat Exams 11/12/20 22:34 Taken HEAD WITHOUT CONTRAST [CT] Stat Exams 11/12/20 20:41 Completed CBC W DIFF Stat Lab 11/12/20 21:00 Completed CMP Stat Lab 11/12/20 21:00 Completed ETHYL ALCOHOL Stat Lab 11/12/20 21:00 Completed Lactic Acid Stat Lab 11/12/20 21:06 Completed Lactic Acid Stat Lab 11/12/20 23:23 Received MAGNESIUM Stat Lab 11/12/20 21:00 Completed TROPONIN Q3H Lab 11/13/20 00:15 Ordered TROPONIN Q3H Lab 11/13/20 03:15 Ordered TROPONIN Q3H Lab 11/13/20 06:15 Ordered TROPONIN Q3H Lab 11/13/20 09:15 Ordered TROPONIN Q3H Lab 11/12/20 21:00 Completed UA W/RFX UR CULTURE Stat Lab 11/12/20 22:55 Completed Urine Triage Profile Stat Lab 11/12/20 22:55 Completed Medication Summary Discontinued Medications Generic Name Dose Route Start Last Admin Trade Name Veronique PRN Reason Stop Dose Admin Aspirin 324 mg 11/12/20 22:34 11/12/20 22:48 Baby Aspirin 81 Mg Chew PO 11/12/20 22:35 324 mg STAT ONE Administration Sodium Chloride 1,000 mls @ 999 mls/hr 11/12/20 21:01 11/12/20 23:10 Sodium Chloride 0.9% 1000 Ml IV 11/12/20 22:01 Infused .Q1H1M STA Infusion Sodium Chloride Confirm 11/12/20 21:13 Sodium Chloride 0.9% 1000 Ml Administered 11/12/20 21:14 Dose 1,000 mls @ ud .ROUTE .STK-MED ONE Lorazepam Confirm 11/12/20 21:27 Ativan 1 Mg Administered 11/12/20 21:28 Dose 1 mg .ROUTE .STK-MED ONE Metoprolol Succinate 25 mg 11/13/20 00:08 11/13/20 00:10 Toprol-Xl 25mg Tablets PO 11/13/20 00:09 25 mg STAT ONE Administration Metoprolol Succinate Confirm 11/13/20 00:09 Toprol-Xl 25mg Tablets Administered 11/13/20 00:10 Dose 25 mg .ROUTE .STK-MED ONE Ondansetron HCl 4 mg 11/12/20 21:01 11/12/20 21:15 Zofran 4 Mg/2 Ml Vial IV 11/12/20 21:02 4 mg STAT ONE Administration Ondansetron HCl Confirm 11/12/20 21:13 Zofran 4 Mg/2 Ml Vial Administered 11/12/20 21:14 Dose 4 mg .ROUTE .STK-MED ONE Lab/Rad Data: Laboratory Result Diagrams 11/12/20 21:00 11/12/20 21:00 Laboratory Results 11/12/20 11/12/20 11/12/20 Range/Units 22:55 22:55 21:06 WBC (4.0-10.5) K/mm3 RBC (4.1-5.4) M/mm3 Hgb (12.0-16.0) gm/dl Hct (35-47) % MCV (78-100) fl MCH (26-32) pg MCHC (32-36) g/dl RDW (11.5-14.0) % Plt Count (150-450) K/mm3 MPV (7.5-11.0) fl Gran % (36.0-66.0) % Eos # (Auto) (0-0.5) Absolute Lymphs (auto) (1.0-4.6) Absolute Monos (auto) (0.0-1.3) Lymphocytes % (24.0-44.0) % Monocytes % (0.0-12.0) % Eosinophils % (0.00-5.0) % Basophils % (0.0-0.4) % Absolute Granulocytes (1.4-6.9) Basophils # (0-0.4) Sodium (137-145) mmol/L Potassium (3.5-5.1) mmol/L Chloride (98-107) mmol/L Carbon Dioxide (22-30) mmol/L Anion Gap (5-15) MEQ/L BUN (7-17) mg/dL Creatinine (0.52-1.04) mg/dL Estimated GFR ML/MIN Glucose (74-106) mg/dL Lactic Acid 3.9 H (0.4-2.0) Calcium (8.4-10.2) mg/dL Magnesium (1.6-2.3) mg/dL Total Bilirubin (0.2-1.3) mg/dL AST (14-36) U/L ALT (0-35) U/L Alkaline Phosphatase (38-126) U/L Troponin I (0.000-0.034) ng/mL Serum Total Protein (6.3-8.2) g/dL Albumin (3.5-5.0) g/dL Urine Color YELLOW (YELLOW) Urine Appearance CLEAR (CLEAR) Urine pH 5.0 (5-6) Ur Specific [place] 1.019 (1.005-1.025) Urine Protein NEGATIVE (Negative) Urine Ketones NEGATIVE (NEGATIVE) Urine Blood NEGATIVE (0-5) Alejandro/ul Urine Nitrite NEGATIVE (NEGATIVE) Urine Bilirubin NEGATIVE (NEGATIVE) Urine Urobilinogen NEGATIVE (0-1) mg/dL Ur Leukocyte Esterase NEGATIVE (NEGATIVE) Urine WBC (Auto) 3-5 (0-5) /HPF Urine RBC (Auto) NONE (0-2) /HPF U Epithel Cells (Auto) NONE (FEW) /HPF Urine Bacteria (Auto) NONE (NEGATIVE) /HPF Urine Mucus (Auto) SLIGHT (NEGATIVE) /HPF Urine Culture Reflexed NO (NO) Urine Glucose NEGATIVE (NEGATIVE) mg/dL Urine Opiates Level NEGATIVE (NEGATIVE) Ur Methadone NEGATIVE (NEGATIVE) Urine Barbiturates NEGATIVE (NEGATIVE) Ur Phencyclidine (PCP) NEGATIVE (NEGATIVE) Urine Amphetamine NEGATIVE (NEGATIVE) U Benzodiazepine Level NEGATIVE (NEGATIVE) Urine Cocaine NEGATIVE (NEGATIVE) Urine Marijuana (THC) NEGATIVE (NEGATIVE) Ethyl Alcohol (0-10) mg/dL 11/12/20 11/12/20 11/12/20 Range/Units 21:00 21:00 21:00 WBC 9.8 (4.0-10.5) K/mm3 RBC 4.28 (4.1-5.4) M/mm3 Hgb 13.3 (12.0-16.0) gm/dl Hct 40.9 (35-47) % MCV 95.6 (78-100) fl MCH 31.1 (26-32) pg MCHC 32.5 (32-36) g/dl RDW 13.2 (11.5-14.0) % Plt Count 257 (150-450) K/mm3 MPV 10.6 (7.5-11.0) fl Gran % 35.5 L (36.0-66.0) % Eos # (Auto) 0.56 H (0-0.5) Absolute Lymphs (auto) 4.92 H (1.0-4.6) Absolute Monos (auto) 0.76 (0.0-1.3) Lymphocytes % 50.3 H (24.0-44.0) % Monocytes % 7.8 (0.0-12.0) % Eosinophils % 5.7 H (0.00-5.0) % Basophils % 0.7 (0.0-0.4) % Absolute Granulocytes 3.48 (1.4-6.9) Basophils # 0.07 (0-0.4) Sodium 139 (137-145) mmol/L Potassium 3.4 L (3.5-5.1) mmol/L Chloride 106 (98-107) mmol/L Carbon Dioxide 21 L (22-30) mmol/L Anion Gap 15.4 H (5-15) MEQ/L BUN 19 H (7-17) mg/dL Creatinine 0.99 (0.52-1.04) mg/dL Estimated GFR > 60.0 ML/MIN Glucose 91 (74-106) mg/dL Lactic Acid (0.4-2.0) Calcium 9.8 (8.4-10.2) mg/dL Magnesium 2.5 H (1.6-2.3) mg/dL Total Bilirubin 0.20 (0.2-1.3) mg/dL AST 35 (14-36) U/L ALT 24 (0-35) U/L Alkaline Phosphatase 72 (38-126) U/L Troponin I < 0.012 (0.000-0.034) ng/mL Serum Total Protein 7.8 (6.3-8.2) g/dL Albumin 4.6 (3.5-5.0) g/dL Urine Color (YELLOW) Urine Appearance (CLEAR) Urine pH (5-6) Ur Specific [place] (1.005-1.025) Urine Protein (Negative) Urine Ketones (NEGATIVE) Urine Blood (0-5) Alejandro/ul Urine Nitrite (NEGATIVE) Urine Bilirubin (NEGATIVE) Urine Urobilinogen (0-1) mg/dL Ur Leukocyte Esterase (NEGATIVE) Urine WBC (Auto) (0-5) /HPF Urine RBC (Auto) (0-2) /HPF U Epithel Cells (Auto) (FEW) /HPF Urine Bacteria (Auto) (NEGATIVE) /HPF Urine Mucus (Auto) (NEGATIVE) /HPF Urine Culture Reflexed (NO) Urine Glucose (NEGATIVE) mg/dL Urine Opiates Level (NEGATIVE) Ur Methadone (NEGATIVE) Urine Barbiturates (NEGATIVE) Ur Phencyclidine (PCP) (NEGATIVE) Urine Amphetamine (NEGATIVE) U Benzodiazepine Level (NEGATIVE) Urine Cocaine (NEGATIVE) Urine Marijuana (THC) (NEGATIVE) Ethyl Alcohol 32 H (0-10) mg/dL - Progress Progress: improved Progress Note: 11/12/20 22:35 Patient is made stroke activate. Prompt CT head is obtained which is negative for any intracranial bleed, midline shift or mass-effect. EKG showed sinus rhythm with no acute ischemic changes. Chest x-ray negative. Work-up showed white count normal and a lactate of 3.9 with mildly low bicarb. Blood alcohol of 32. I have obtained [facility] neurology consult, have discussed with Dr. Sultana who has seen patient, recommended aspirin, MRI and other stroke work-up keeping in mind the fact that she has brief run of A. fib on the previous Holter monitoring and this could be the case with throwing a small clot and MRI would rule it out. With her loss of bladder control and elevated lactate/passing out as a suspicion of seizure and if MRI is negative recommended EEG. Do not have MRI services available over the weekend at [facility]. I have d/w at [facility], reviewed patient history, exam, work-up and neuro recommendation. Was recommended to have CTA head neck before transfer to rule out any large vessel occlusion in that case patient would be transferred to tertiary care center for intervention. Patient numbness and tingling sensation is improving. Plan discussed with patient understand and agrees with it. 11/13/20 00:15 CTA head and neck are negative. Patient is almost back to her baseline. Patient would be transferred to [facility]. Discussed with Dr.: Other (Raphael ) Counseled pt/family regarding: lab results, diagnosis, rad results - Departure Departure Disposition: Transfer Clinical Impression: Stroke-like symptoms Condition: Stable Critical Care Time: Yes Critical Care Time(excluding separately billable procedures): Critical 30-74 mins Referrals: LUBA SINGH MD [Primary Care Provider] -
--- NOTE | 2020-11-12 22:08 | XRAY ---
Indication: Dizziness. Comparison: April 12, 2020. Portable chest again demonstrates normal heart, lungs, and bony thorax with incidental right apical calcified granuloma.
--- NOTE | 2020-11-12 22:10 | XRAY ---
Indication: Dizziness, blurred vision, and head pressure. Multiple contiguous axial images obtained through the head without contrast. Comparison: April 12, 2020. Normal appearing brain parenchyma, ventricles, and bony calvarium. Visualized paranasal sinuses and mastoid air cells are clear. Impression: Normal CT head without contrast exam. Comment: Preliminary interpretation was made by [facility]. No critical discrepancy.
[2020-11-12] MEDS ORDERED: BABY ASPIRIN 81 MG CHEW PO ONE (22:34)
[2020-11-12 23:18] LABS: Appearance CLEAR (CLEAR); Bilirubin NEGATIVE (NEGATIVE); Blood NEGATIVE Ery/ul (0-5); Glucose NEGATIVE (NEGATIVE); Ketones NEGATIVE (NEGATIVE); Leukocyte Esterase NEGATIVE (NEGATIVE); Mucus SLIGHT /HPF (NEGATIVE); Nitrite NEGATIVE (NEGATIVE); Protein,Urine Dip NEGATIVE (Negative); Specific Gravity 1.019 (1.005-1.025); Urobilinogen NEGATIVE mg/dL (0-1)
[2020-11-12 23:32] LABS: Amphetamine,Urine NEGATIVE (NEGATIVE); Barbiturate,Urine NEGATIVE (NEGATIVE); Benzodiazepine,Urine NEGATIVE (NEGATIVE); Cocaine,Urine NEGATIVE (NEGATIVE); Methadone,Urine NEGATIVE (NEGATIVE); Opiate,Urine NEGATIVE (NEGATIVE); PCP,Urine NEGATIVE (NEGATIVE); THC,Urine NEGATIVE (NEGATIVE)
[2020-11-13] MEDS ORDERED: Toprol-Xl 25MG Tablets PO ONE (00:08)
[2020-11-13] MEDS ORDERED: Toprol-Xl 25MG Tablets ONE (00:09)
[2020-11-13 00:55] VITALS: BP 116/67; PULSE 84; O2SAT 98
--- NOTE | 2020-11-13 10:26 | XRAY ---
Indication: Blurry vision, dizziness, and pressure. Conventional contrast enhanced CTA neck performed using 80 cc Isovue 370 contrast. Two-dimensional sagittal and coronal reformatted images obtained. Additional 3-dimensional reformatted images obtained using a separate workstation. Comparison: None Visualized aortic arch is normal in course and caliber with anatomic variant for bovine aortic arch. Negative aneurysm/dissection. Left and right common carotid, carotid bulb, internal carotid, and external carotid arteries are normal in CTA appearance. Negative for AV malformation. Vertebral arteries are bilaterally symmetric with right slightly larger in caliber. Visualized soft tissues demonstrates a few subcentimeter cervical lymph nodes. No pathologic lymphadenopathy. Supra and infraglottic airway widely patent. Cervical spine intact. Lung apices are clear. CTA head reported separately. Impression: Normal CTA neck exam. Comment: Preliminary interpretation was made by [facility]. No critical discrepancy.
--- NOTE | 2020-11-13 10:28 | XRAY ---
Indication: Blurry vision, dizziness, and pressure. Conventional contrast enhanced CTA head performed using 80 cc Isovue 370 contrast. Two-dimensional sagittal and coronal reformatted images obtained. Additional 3-dimensional reformatted images obtained using a separate workstation. Comparison: None CTA neck reported separately. Distal internal carotid arteries are bilaterally symmetric with normal branching A1 and M1 segments. More distal anterior cerebral, middle cerebral, anterior communicating, and posterior communicating arteries are normal in CTA appearance. Posterior circulation demonstrates normal course and caliber to the basilar artery. Normal branching posterior cerebral and superior cerebellar arteries bilaterally. Remaining brain is negative for abnormal enhancing intra-/extra-axial or mass. Impression: Normal CTA head. Comment: Preliminary interpretation was made by [facility]. No critical discrepancy.
== END 2020-11-13 00:58 | disposition short-term general hospital (02) ==
LOC: ED 20:34
DX: R42 Dizziness and giddiness (principal); H53.8 Other visual disturbances; R55 Syncope and collapse; R20.0 Anesthesia of skin; R53.83 Other fatigue; I10 Essential (primary) hypertension; E03.9 Hypothyroidism, unspecified; I48.91 Unspecified atrial fibrillation; Z79.899 Other long term (current) drug therapy
CPT/HCPCS: 36000; 36415; 70450; 70496; 70498; 71045; 80053; 80307; 81001; 83605; 83735; 84484; 85025; 93005; 96360; 96374; 99285; 99291; J2405; A9270-GY; G0480

== ENCOUNTER 2020-11-17 10:11 | Inpatient (IN) | payer OTHER ==
--- NOTE | 2020-11-17 10:35 | ERPHSYRPT ---
- History of Present Illness Time Seen by Provider: 11/17/20 10:25 Source: patient Exam Limitations: no limitations Patient Subjective Stated Complaint: Pt states "I have been fighting with my blood pressure for awhile but this episode started on , I passed ou t and came to the ed here and they transferred me to [facility] and i was there overnight and released to follow up with my family dr. Dr. Calderon. She told me to call her when my pressure is up. I called her today because it was 158/111 and she told me to come to the ed." Triage Nursing Assessment: Pt has holter on. Dr. Dutton at [facility] ordered her to have the monitor on. PT presented alert and oriented X 3, skin pwd Pt ambulates with an upright steady gait, able to speak in clear full sentences. Pt in no apaprent respiratory distress. Pt moves all extremeties. Physician History: This is a 55-year-old white female patient of Dr. Calderon who has a history of hypertension and takes lisinopril in the morning and metoprolol at night and as needed clonidine. In addition, she has hypothyroidism and takes alprazolam on an as-needed basis. Patient was seen here in this emergency department on 11/12/2020 for similar symptoms including dizziness and generalized numbness and some blurred vision. Patient had a negative CAT scan of her head without contrast. In addition, a CTA of her head neck was negative. Patient was then transferred to [facility] in [facility] where she underwent an MRI and this was negative per patient report. Patient had a Holter monitor on at the time of that visit and Dr. Do has kept her on that Holter monitor. Patient states her symptoms never completely went away. She arrives feeling as though she is going to pass out and tearful. She states that she does not have chest pain. She does have a headache. She did take clonidine this morning as well as her lisinopril. She does not have fever. Patient states that she took her blood pressure this morning was elevated became concerned. She called her doctor's office who then told her to come to the emergency department. She denies any head injury. Timing/Duration: day(s) (A few days) Severity: moderate Associated Symptoms: headaches, other (Feeling as though she is going to pass out) Allergies/Adverse Reactions: No Known Drug Allergies Allergy (Verified 11/12/20 21:03) Home Medications: Lisinopril 10 mg [Zestril 10 MG] 5 mg PO DAILY 08/20/19 [History] Levothyroxine Sodium 88 Mcg [Synthroid 88 Mcg] 75 mcg PO DAILY 09/11/19 [History] Metoprolol Succinate 25 mg Xl* [Toprol-Xl 25MG Tablets] 25 mg PO DAILY 11/12/20 [History] Clonidine HCl [Clonidine HCl ER] 0.1 mg PO DAILY PRN 11/17/20 [History] Hx Tetanus, Diphtheria Vaccination/Date Given: No Hx Influenza Vaccination/Date Given: No Hx Pneumococcal Vaccination/Date Given: No Immunizations Up to Date: Yes Travel Risk - International Travel Have you traveled outside of the country in past 3 weeks: No - Coronavirus Screening Are you exhibiting any of the following symptoms?: No Close contact with a COVID-19 positive Pt in past 14-21 Days: No - Review of Systems Constitutional: No Symptoms Eyes: No Symptoms Ears, Nose, & Throat: No Symptoms Respiratory: No Symptoms Cardiac: No Symptoms Abdominal/Gastrointestinal: No Symptoms Genitourinary Symptoms: No Symptoms Musculoskeletal: No Symptoms Skin: No Symptoms Neurological: Headache Psychological: No Symptoms Endocrine: No Symptoms Hematologic/Lymphatic: No Symptoms Immunological/Allergic: No Symptoms All Other Systems: Reviewed and Negative - Past Medical History Pertinent Past Medical History: Yes Neurological History: Migraines ENT History: No Pertinent History Cardiac History: Hypertension Respiratory History: No Pertinent History Endocrine Medical History: Hypothyroidism Musculoskeletal History: No Pertinent History GI Medical History: No Pertinent History History: No Pertinent History Psycho-Social History: No Pertinent History Female Reproductive Disorders: No Pertinent History - Past Surgical History Past Surgical History: Yes Neuro Surgical History: No Pertinent History Cardiac: No Pertinent History Respiratory: No Pertinent History Gastrointestinal: No Pertinent History Genitourinary: No Pertinent History Musculoskeletal: Other Female Surgical History: No Pertinent History Other Surgical History: staple removed from heel - Social History Smoking Status: Former smoker Exposure to second hand smoke: Yes Drug Use: none Patient Lives Alone: No - Female History Hx Now: No - Nursing Vital Signs Nursing Vital Signs: Initial Vital Signs Temperature 98.6 F 11/17/20 10:15 Pulse Rate 77 11/17/20 10:15 Respiratory Rate 20 11/17/20 10:15 Blood Pressure 164/91 11/17/20 10:15 O2 Sat by Pulse Oximetry 99 11/17/20 10:15 Pain Scale Pain Intensity 8 - Physical Exam General Appearance: moderate distress, alert, anxiety, thin Eye Exam: PERRL/EOMI, eyes nml inspection Ears, Nose, Throat Exam: normal ENT inspection, moist mucous membranes Neck Exam: normal inspection, non-tender, supple, full range of motion Respiratory Exam: normal breath sounds, lungs clear, respiratory distress, airway intact, No chest tenderness Cardiovascular Exam: regular rate/rhythm, normal heart sounds, normal peripheral pulses Gastrointestinal/Abdomen Exam: soft, normal bowel sounds, No tenderness Pelvic Exam: not done Rectal Exam: not done Back Exam: normal inspection, normal range of motion, No CVA tenderness, No vertebral tenderness Extremity Exam: normal inspection, normal range of motion, pelvis stable Neurologic Exam: alert, oriented x 3, cooperative, receivable manager II-XII nml as tested, no rmal mood/affect, nml cerebellar function, nml station & gait, sensation nml Skin Exam: normal color, warm, dry Lymphatic Exam: No adenopathy SpO2 Interpretation: normal SpO2: 99 O2 Delivery: Room Air - Course Nursing assessment & vital signs reviewed: Yes EKG Interpreted by Me: RATE ([id number]), Sinus Rhythm, NORMAL AXIS, NORMAL INTERVALS, NORMAL QRS, NORMAL ST-T, Other (No acute ischemic changes on today's EKG. There are no changes from the EKG dated 11/12/2020) Ordered Tests: Active Orders 24 hr Category Date Time Status Clean Catch Urine Specimen STAT Care 11/17/20 10:40 Active EKG-ER Only STAT Care 11/17/20 10:40 Active IV Insertion STAT Care 11/17/20 10:40 Active HEAD WITHOUT CONTRAST [CT] Stat Exams 11/17/20 10:41 Completed CBC W DIFF Stat Lab 11/17/20 10:40 Completed CMP Stat Lab 11/17/20 10:56 Completed MAGNESIUM Stat Lab 11/17/20 10:56 Completed [place] Screen Stat Lab 11/17/20 10:56 Completed T4 (Thyroxine) Stat Lab 11/17/20 10:56 Completed TROPONIN Q3H Lab 11/17/20 10:56 Completed TROPONIN Q3H Lab 11/17/20 13:45 Ordered TROPONIN Q3H Lab 11/17/20 16:45 Ordered TROPONIN Q3H Lab 11/17/20 19:45 Ordered TROPONIN Q3H Lab 11/17/20 22:45 Ordered TSH [TSH, 3RD Generation] Stat Lab 11/17/20 10:56 Completed UA W/RFX UR CULTURE Stat Lab 11/17/20 11:37 Received Urine Triage Profile Stat Lab 11/17/20 11:37 Ordered Transfer Order Routine Transfer 11/17/20 Ordered Medication Summary Discontinued Medications Generic Name Dose Route Start Last Admin Trade Name Veronique PRN Reason Stop Dose Admin Lorazepam 1 mg 11/17/20 10:43 11/17/20 11:41 Ativan 2 Mg/1 Ml Vial IV 11/17/20 10:44 1 mg STAT ONE Administration Lorazepam Confirm 11/17/20 11:38 Ativan 2 Mg/1 Ml Vial Administered 11/17/20 11:39 Dose 2 mg .ROUTE .STK-MED ONE Morphine Sulfate 2 mg 11/17/20 10:43 11/17/20 11:42 Morphine Sulfate 2 Mg Inj IV 11/17/20 10:44 2 mg STAT ONE Administration Morphine Sulfate Confirm 11/17/20 11:38 Morphine Sulfate 2 Mg Inj Administered 11/17/20 11:39 Dose 2 mg .ROUTE .STK-MED ONE Ondansetron HCl 4 mg 11/17/20 10:40 11/17/20 11:40 Zofran 4 Mg/2 Ml Vial IV 11/17/20 10:41 4 mg STAT ONE Administration Ondansetron HCl Confirm 11/17/20 11:38 Zofran 4 Mg/2 Ml Vial Administered 11/17/20 11:39 Dose 4 mg .ROUTE .STK-MED ONE Lab/Rad Data: Laboratory Result Diagrams 11/17/20 10:40 11/17/20 10:56 Laboratory Results 11/17/20 11/17/20 11/17/20 Range/Units 10:56 10:56 10:56 WBC (4.0-10.5) K/mm3 RBC (4.1-5.4) M/mm3 Hgb (12.0-16.0) gm/dl Hct (35-47) % MCV (78-100) fl MCH (26-32) pg MCHC (32-36) g/dl RDW (11.5-14.0) % Plt Count (150-450) K/mm3 MPV (7.5-11.0) fl Gran % (36.0-66.0) % Eos # (Auto) (0-0.5) Absolute Lymphs (auto) (1.0-4.6) Absolute Monos (auto) (0.0-1.3) Lymphocytes % (24.0-44.0) % Monocytes % (0.0-12.0) % Eosinophils % (0.00-5.0) % Basophils % (0.0-0.4) % Absolute Granulocytes (1.4-6.9) Basophils # (0-0.4) Sodium (137-145) mmol/L Potassium (3.5-5.1) mmol/L Chloride (98-107) mmol/L Carbon Dioxide (22-30) mmol/L Anion Gap (5-15) MEQ/L BUN (7-17) mg/dL Creatinine (0.52-1.04) mg/dL Estimated GFR ML/MIN Glucose (74-106) mg/dL Calcium (8.4-10.2) mg/dL Magnesium (1.6-2.3) mg/dL Total Bilirubin (0.2-1.3) mg/dL AST (14-36) U/L ALT (0-35) U/L Alkaline Phosphatase (38-126) U/L Troponin I 0.001 (0.000-0.034) ng/mL Serum Total Protein (6.3-8.2) g/dL Albumin (3.5-5.0) g/dL Thyroxine (T4) 11.6 H (5.53-10.96) ug/dL TSH 3rd Generation (0.47-4.68) mIU/L Monoscreen NEGATIVE (Negative) 11/17/20 11/17/20 11/17/20 Range/Units 10:56 10:56 10:40 WBC 5.4 (4.0-10.5) K/mm3 RBC 4.38 (4.1-5.4) M/mm3 Hgb 13.5 (12.0-16.0) gm/dl Hct 41.6 (35-47) % MCV 95.0 (78-100) fl MCH 30.8 (26-32) pg MCHC 32.5 (32-36) g/dl RDW 13.0 (11.5-14.0) % Plt Count 257 (150-450) K/mm3 MPV 10.3 (7.5-11.0) fl Gran % 47.4 (36.0-66.0) % Eos # (Auto) 0.29 (0-0.5) Absolute Lymphs (auto) 1.98 (1.0-4.6) Absolute Monos (auto) 0.52 (0.0-1.3) Lymphocytes % 36.7 (24.0-44.0) % Monocytes % 9.6 (0.0-12.0) % Eosinophils % 5.4 H (0.00-5.0) % Basophils % 0.9 (0.0-0.4) % Absolute Granulocytes 2.55 (1.4-6.9) Basophils # 0.05 (0-0.4) Sodium 138 (137-145) mmol/L Potassium 4.4 (3.5-5.1) mmol/L Chloride 103 (98-107) mmol/L Carbon Dioxide 26 (22-30) mmol/L Anion Gap 13.5 (5-15) MEQ/L BUN 15 (7-17) mg/dL Creatinine 0.91 (0.52-1.04) mg/dL Estimated GFR > 60.0 ML/MIN Glucose 93 (74-106) mg/dL Calcium 9.9 (8.4-10.2) mg/dL Magnesium 2.1 (1.6-2.3) mg/dL Total Bilirubin 0.50 (0.2-1.3) mg/dL AST 43 H (14-36) U/L ALT 32 (0-35) U/L Alkaline Phosphatase 71 (38-126) U/L Troponin I (0.000-0.034) ng/mL Serum Total Protein 8.3 H (6.3-8.2) g/dL Albumin 4.8 (3.5-5.0) g/dL Thyroxine (T4) (5.53-10.96) ug/dL TSH 3rd Generation 6.380 H (0.47-4.68) mIU/L Monoscreen (Negative) - Progress Progress: improved, re-examined Progress Note: 11/17/20 12:03 This patient was down in the CAT scanner and being transferred on the CAT scan table when she suddenly "passed out" hitting her head posteriorly. There is a small abrasion with a small amount of bleeding present. The bleeding stopped. The CAT scan of her head without contrast was performed the results of this test show negative for any acute intracranial or extracranial process. An incident report is being filed by radiology. 11/17/20 12:23 Medical decision making: I spoke with Dr. Calderon who is the patient's primary care doctor. I reviewed the patient history, clinical findings and results of her EKG, lab work and x-rays. We will bring her into the hospital and place her in observation on a monitored bed. Patient does have a history of hypertension, neurogenic syncopal episodes and paroxysmal atrial fibrillation. We will repeat the EKG in the morning. Counseled pt/family regarding: lab results, diagnosis, need for follow-up, rad results - Departure Departure Disposition: Observation Clinical Impression: Hypertension, Neurogenic syncope, Headache, Head contusion Condition: Stable Critical Care Time: No Referrals: LUBA CALDERON MD [Primary Care Provider] -
[2020-11-17] MEDS ORDERED: Zofran 4 MG/2 ML VIAL IV ONE (10:40)
[2020-11-17] MEDS ORDERED: MORPHINE SULFATE 2 MG INJ IV ONE (10:43)
[2020-11-17] MEDS ORDERED: Ativan 2 MG/1 ML VIAL IV ONE (10:43)
[2020-11-17 10:50] LABS: Absolute Neutrophil Ct (ANC) 2.55 (1.4-6.9); BASOPHIL % 0.9 % (0.0-0.4); Basophil (Absolute #) 0.05 (0-0.4); Eosinophil % 5.4 % (0.00-5.0); Eosinophil (Absolute #) 0.29 (0-0.5); Hematocrit 41.6 % (35-47); Hemoglobin 13.5 gm/dl (12.0-16.0); Lymphocyte (Absolute #) 1.98 (1.0-4.6); Lymphocytes % 36.7 % (24.0-44.0); Mean Corpuscular Hemoglobin 30.8 pg (26-32); Mean Corpuscular Hgb Concent. 32.5 g/dl (32-36); Mean Platelet Volume 10.3 fl (7.5-11.0); Monocyte (Absolute #) 0.52 (0.0-1.3); Monocytes % 9.6 % (0.0-12.0); Neutrophil % 47.4 % (36.0-66.0); Platelet Count 257 K/mm3 (150-450); Red Blood Count 4.38 M/mm3 (4.1-5.4); White Blood Count 5.4 K/mm3 (4.0-10.5)
[2020-11-17 11:07] LABS: ALBUMIN 4.8 g/dL (3.5-5.0); ALKALINE PHOSPHATASE 71 U/L (38-126); ANION GAP 13.5 MEQ/L (5-15); BLOOD UREA NITROGEN 15 mg/dL (7-17); CHLORIDE 103 mmol/L (98-107); Calcium 9.9 mg/dL (8.4-10.2); Carbon Dioxide 26 mmol/L (22-30); Creatinine 1 0.91 mg/dL (0.52-1.04); EST GLOMERULAR FILTRATION RATE > 60.0 ML/MIN; Glucose 93 mg/dL (74-106); MAGNESIUM 2.1 mg/dL (1.6-2.3); Potassium 4.4 mmol/L (3.5-5.1); SGOT/AST 43 U/L (14-36); SGPT/ALT 32 U/L (0-35); SODIUM 138 mmol/L (137-145); Total Protein 8.3 g/dL (6.3-8.2)
[2020-11-17] MEDS ORDERED: Zofran 4 MG/2 ML VIAL ONE (11:38)
[2020-11-17] MEDS ORDERED: Ativan 2 MG/1 ML VIAL ONE (11:38)
[2020-11-17] MEDS ORDERED: MORPHINE SULFATE 2 MG INJ ONE (11:38)
--- NOTE | 2020-11-17 11:39 | XRAY ---
Indication: Posterior head injury and left headache following syncope. Multiple contiguous axial images obtained through the head without contrast. Comparison: November 12, 2020. Normal appearing brain parenchyma, ventricles, and bony calvarium. Visualized paranasal sinuses and mastoid air cells are clear. Impression: Continued normal CT head without contrast exam.
[2020-11-17 12:33] LABS: Appearance CLEAR (CLEAR); Bilirubin NEGATIVE (NEGATIVE); Blood NEGATIVE Ery/ul (0-5); Glucose NEGATIVE (NEGATIVE); Ketones NEGATIVE (NEGATIVE); Leukocyte Esterase NEGATIVE (NEGATIVE); Mucus SLIGHT /HPF (NEGATIVE); Nitrite NEGATIVE (NEGATIVE); Protein,Urine Dip NEGATIVE (Negative); Specific Gravity 1.004 (1.005-1.025); Urobilinogen NEGATIVE mg/dL (0-1)
[2020-11-17 12:49] LABS: Amphetamine,Urine NEGATIVE (NEGATIVE); Barbiturate,Urine NEGATIVE (NEGATIVE); Benzodiazepine,Urine NEGATIVE (NEGATIVE); Cocaine,Urine NEGATIVE (NEGATIVE); Methadone,Urine NEGATIVE (NEGATIVE); Opiate,Urine NEGATIVE (NEGATIVE); PCP,Urine NEGATIVE (NEGATIVE); THC,Urine NEGATIVE (NEGATIVE)
[2020-11-17] MEDS ORDERED: Zofran 4 MG/2 ML VIAL IV PRN (13:20)
[2020-11-17] MEDS: TYLENOL 325 MG PO PRN ×2 (13:29→18:47)
[2020-11-17] MEDS ORDERED: CLONIDINE HCL 0.1 MG PO PRN (15:47)
[2020-11-17] MEDS ORDERED: Catapres 0.1 MG PO PRN (15:52)
[2020-11-17] MEDS: Toprol-Xl 25MG Tablets PO SCH (21:29)
[2020-11-18] MEDS: TYLENOL 325 MG PO PRN (06:25)
[2020-11-18] MEDS: SYNTHROID 75 MCG PO SCH (10:06)
[2020-11-18] MEDS: ECOTRIN 81 MG PO SCH (10:06)
[2020-11-18] MEDS: Zestril 5 MG PO SCH (10:06)
[2020-11-18] MEDS ORDERED: Transderm Scop 1.5MG Patch TOP ONE (11:12)
[2020-11-18] MEDS ORDERED: MORPHINE SULFATE 2 MG INJ IV PRN (11:38)
--- NOTE | 2020-11-18 12:20 | XRAY ---
Indication: Left headache, photophobia, and hypertension. Sagittal, coronal, and axial MRI brain was performed without contrast using T1, T2, FLAIR, diffusion, and ADC sequences. Comparison: January 31, 2020. Ventriculosulcal pattern appears symmetric. No acute intracranial hemorrhage, abnormal extra-axial fluid collection, or mass effect. Diffusion images are negative for restricted signal. Fourth ventricle is midline without hydrocephalus. 7/8 cranial nerve complex bilaterally symmetric. Normal flow-void signal within the major intracerebral circulation. Normal appearing craniocervical junction and sella turcica. Paranasal sinuses are clear. Impression: Continued negative MRI brain without contrast exam.
--- NOTE | 2020-11-18 12:59 | PCM.HP ---
History of Present Illness - Chief Complaint Chief Complaint: HYPERTENSION History of Present Illness: is a 55 year old female. Medications & Allergies Home Medications: Home Medication List Lisinopril 10 mg [Zestril 10 MG] 5 mg PO DAILY 08/20/19 [History Confirmed 11/17/20] Levothyroxine Sodium 88 Mcg [Synthroid 88 Mcg] 75 mcg PO 0430 09/11/19 [History Confirmed 11/17/20] Metoprolol Succinate 25 mg Xl* [Toprol-Xl 25MG Tablets] 25 mg PO HS 11/12/20 [History Confirmed 11/17/20] Aspirin 81 gm Chew [Baby Aspirin 81 mg Chew] 81 mg PO DAILY 11/17/20 [History Confirmed 11/17/20] Clonidine HCl [Clonidine HCl ER] 0.1 mg PO DAILY PRN 11/17/20 [History Confirmed 11/17/20] Allergies/Adverse Reactions: Allergies Allergy/AdvReac Type Severity Reaction Status Date / Time No Known Drug Allergies Allergy Verified 11/12/20 21:03 - Past Medical History Past Medical History: Yes Neurological History: Migraines ENT History: No Pertinent History Cardiac History: Hypertension Respiratory History: No Pertinent History Endocrine Medical History: Hypothyroidism Musculoskelatal History: No Pertinent History GI Medical History: No Pertinent History History: No Pertinent History Pyscho-Social History: No Pertinent History Reproductive Disorders: No Pertinent History Comment: SEASONAL ALLERGIES - Female History Are you now?: No - Past Surgical History Past Surgical History: Yes Neuro Surgical History: No Pertinent History Cardiac History: No Pertinent History Respiratory Surgery: No Pertinent History GI Surgical History: No Pertinent History Genitourinary Surgical Hx: No Pertinent History Musculskeletal Surgical Hx: Other Female Surgical History: No Pertinent History Other Surgical History: CONSTRUCTION staple removed from heel - Social History Smoking Status: Never smoker Exposure to second hand smoke: Yes Alcohol: Rarely Drug Use: none - Physical Exam Vital Signs: Vital Signs - 24 hr Temp Pulse Resp BP Pulse Ox 11/18/20 12:00 98.2 F 74 16 160/74 97 11/18/20 09:23 96 11/18/20 07:50 93 H 137/82 11/18/20 07:49 79 131/78 11/18/20 07:44 98.2 F 75 16 135/72 98 11/18/20 04:00 97.6 F 62 16 104/56 98 11/18/20 00:00 98.5 F 55 L 16 104/53 98 11/17/20 20:00 97.5 F 65 16 93/54 95 11/17/20 19:34 96 11/17/20 16:00 98.2 F 62 16 105/62 98 11/17/20 14:32 99 11/17/20 13:13 98.3 F 57 L 16 128/71 99 Results - Labs Lab/Micro Results: Lab Results-Last 24 Hours 11/17/20 11/17/20 11/17/20 Range/Units 14:04 16:46 20:07 Troponin I < 0.012 < 0.012 < 0.012 (0.000-0.034) ng/mL 11/17/20 Range/Units 22:54 Troponin I < 0.012 (0.000-0.034) ng/mL - Radiology Impressions Radiology Exams & Impressions: Radiology Procedures Category Date Time Status HEAD WITHOUT CONTRAST [CT] Stat Exams 11/17/20 10:41 Completed MRI BRAIN W & W/O CONTRAST [MRI] Routine Exams 11/18/20 11:11 Completed - Other Procedures and Tests Respiratory Therapy 11/18/20 11:12 EEG >60 Minutes (Extended) ONCE
[2020-11-18] MEDS: Toprol-Xl 25MG Tablets PO SCH (22:18)
[2020-11-19] MEDS: Zestril 5 MG PO SCH (11:19)
[2020-11-19] MEDS: SYNTHROID 75 MCG PO SCH (11:19)
[2020-11-19] MEDS: ECOTRIN 81 MG PO SCH (11:19)
[2020-11-19] MEDS: TYLENOL 325 MG PO PRN (12:12)
[2020-11-19 17:19] VITALS: BP 141/76; PULSE 76; O2SAT 98
== END 2020-11-19 17:37 | disposition home or self-care (01) | DRG 305 ==
LOC: ED 10:11 → MED SURG 13:05 → OBSVTOIN 13:05
PROVIDERS: ADMIT Family Medicine; ATTEND Family Medicine
DX: I10 Essential (primary) hypertension (principal); Z79.899 Other long term (current) drug therapy; E03.9 Hypothyroidism, unspecified; R51.9 Headache, unspecified; R42 Dizziness and giddiness; R55 Syncope and collapse; I48.0 Paroxysmal atrial fibrillation; S00.93XA Contusion of unspecified part of head, initial encounter
CPT/HCPCS: 36000; 36415; 70450; 70553; 80053; 80307; 81001; 83735; 84436; 84443; 84484; 85025; 86308; 93005; 94760; 95813; 96374; 96375; 99285; J2060; J2270; J2405; Q3014; A9270-GY

== ENCOUNTER 2020-11-25 06:42 | Emergency (ER) | payer OTHER ==
[2020-11-25] MEDS ORDERED: Sodium Chloride 0.9% 1000 ML 1,000 ML IV STA (07:21)
[2020-11-25] MEDS ORDERED: Ativan 2 MG/1 ML VIAL IV ONE (07:23)
[2020-11-25] MEDS ORDERED: Ativan 2 MG/1 ML VIAL ONE (07:32)
[2020-11-25] MEDS ORDERED: Sodium Chloride 0.9% 1000 ML 1,000 ML ONE (07:32)
--- NOTE | 2020-11-25 07:39 | ERPHSYRPT ---
- History of Present Illness Time Seen by Provider: 11/25/20 07:04 Source: patient Exam Limitations: no limitations Patient Subjective Stated Complaint: pt states that her blood pressure began to rise and she felt funny. pt states the she took 10 mg of lisinopril Triage Nursing Assessment: pt came into the er via ambulance; pt is axo x3; c/o htn, dizziness, headache; denies pain; pt states that she is warm and then chilled; c/o nausea; pt received 4 mg zofran in route per medic; pupils 3 mm and PERRL; clear lung sounds; clear heart tone; strong radial pulses; strong pedal pulses; no edema present; hypertension; afebrile; dry hacking cough; holter monitor in place Physician History: 55 years old female with history of hypertension, anxiety, intermittent dizziness presented in the ER with chief complaint of mild headache and feeling dizziness which patient describes as a funny feeling as if she was going to fall while lying on the bed. She does not describe this as a room spinning sensation or herself spinning. No significant aggravating or relieving factors. She took Xanax as she was hyperventilating and checked her blood pressure which was initially 140 systolic and and then increased to 170s systolic in matter of few minutes. She called 911 and is brought in the ER. Patient reports also having some nausea and is given Zofran on the way to the ER which helped. She denies any focal numbness tingling or weakness. Denies any blurry/double vision/difficulty speech, recent fall or head trauma. Patient has similar symptoms multiple times in the past. Patient was recently seen in the ER on for same symptoms with syncopal episode, negative CT/CT is added neck and patient was transferred to [facility] where she had MRI done which per patient was normal and was discharged home. Denies any chest pain palpitations or shortness of breath. Patient is very anxious Timing/Duration: hour(s) (3), gradual onset, improved Severity: moderate Character of Deficits: none Deficits: no difficulties Baseline/Normal Cognition: alert oriented x 3 Current Cognition: alert oriented x 3 Baseline Gait: walks w/o assistance Associated Symptoms: fatigue, nausea, No loss of consciousness, No weakness, No insomnia, No numbness/tingling in legs/feet, No ringing in ears, No slurred speech, No vision changes Allergies/Adverse Reactions: No Known Drug Allergies Allergy (Verified 11/12/20 21:03) Home Medications: Lisinopril 10 mg [Zestril 10 MG] 10 mg PO DAILY 08/20/19 [History] Levothyroxine Sodium 88 Mcg [Synthroid 88 Mcg] 88 mcg PO 0430 09/11/19 [History] Metoprolol Succinate 25 mg Xl* [Toprol-Xl 25MG Tablets] 25 mg PO HS 11/12/20 [History] Aspirin 81 gm Chew [Baby Aspirin 81 mg Chew] 81 mg PO DAILY 11/17/20 [History] Fluticasone Propionate [Flonase NASAL] 16 gm NS DAILY 11/25/20 [History] PARoxetine HCL [Paroxetine HCl] 10 mg PO DAILY 11/25/20 [History] Hx Tetanus, Diphtheria Vaccination/Date Given: Yes Hx Influenza Vaccination/Date Given: No Hx Pneumococcal Vaccination/Date Given: No Travel Risk - International Travel Have you traveled outside of the country in past 3 weeks: No - Coronavirus Screening Are you exhibiting any of the following symptoms?: No Close contact with a COVID-19 positive Pt in past 14-21 Days: No - Review of Systems Constitutional: No Symptoms Eyes: No Symptoms Ears, Nose, & Throat: No Symptoms Respiratory: No Symptoms Cardiac: No Symptoms Abdominal/Gastrointestinal: No Symptoms Genitourinary Symptoms: No Symptoms Musculoskeletal: No Symptoms Skin: No Symptoms Neurological: Dizziness, Headache Psychological: Anxiety Endocrine: No Symptoms Hematologic/Lymphatic: No Symptoms Immunological/Allergic: No Symptoms All Other Systems: Reviewed and Negative - Past Medical History Pertinent Past Medical History: Yes Neurological History: Migraines ENT History: No Pertinent History Cardiac History: Hypertension Respiratory History: No Pertinent History Endocrine Medical History: Hypothyroidism Musculoskeletal History: No Pertinent History GI Medical History: No Pertinent History History: No Pertinent History Psycho-Social History: No Pertinent History Female Reproductive Disorders: No Pertinent History Other Medical History: SEASONAL ALLERGIES - Past Surgical History Past Surgical History: Yes Neuro Surgical History: No Pertinent History Cardiac: No Pertinent History Respiratory: No Pertinent History Gastrointestinal: No Pertinent History Genitourinary: No Pertinent History Musculoskeletal: Other Female Surgical History: No Pertinent History Other Surgical History: CONSTRUCTION staple removed from heel - Social History Smoking Status: Never smoker Exposure to second hand smoke: Yes Drug Use: none Patient Lives Alone: No - Female History Hx Now: No - Nursing Vital Signs Nursing Vital Signs: Initial Vital Signs Temperature 98.9 F 11/25/20 06:52 Pulse Rate 69 11/25/20 06:52 Respiratory Rate 18 11/25/20 06:52 Blood Pressure 160/90 11/25/20 06:52 O2 Sat by Pulse Oximetry 96 11/25/20 06:52 Pain Scale Pain Intensity 0 - [place] Coma Scale Best Eye Response (Martin): (4) open spontaneously Best Verbal Response ([place]): (5) oriented Best Motor Response ([place]): (6) obeys commands [place] Total: 15 - Physical Exam General Appearance: no apparent distress, alert, anxiety Eye Exam: bilateral eye: normal inspection, PERRL, EOMI Ears, Nose, Throat Exam: normal ENT inspection Neck Exam: normal inspection, non-tender, supple, full range of motion Respiratory: normal breath sounds, lungs clear Cardiovascular: regular rate/rhythm, normal heart sounds Gastrointestinal: soft, normal bowel sounds Back Exam: normal inspection, normal range of motion Extremity Exam: normal inspection, normal range of motion, pelvis stable Mental Status: alert, oriented x 3, 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 Exam: normal hearing, normal speech, PERRL Coordination/Gait: normal finger to nose, normal gait, normal cerebellar function, negative Romberg's sign Motor/Sensory: no motor deficit, no sensory deficit, no pronator drift Skin Exam: normal color SpO2 Interpretation: normal SpO2: 96 O2 Delivery: Room Air - Course EKG Interpreted by Me: RATE (58), Sinus Johan, NORMAL AXIS, NORMAL INTERVALS, NORMAL QRS, Other (Nonspecific T wave changes) Ordered Tests: Active Orders 24 hr Category Date Time Status Shower Screen Installer STAT Care 11/25/20 07:22 Active EKG-ER Only STAT Care 11/25/20 07:21 Active IV Insertion STAT Care 11/25/20 07:21 Active CHEST 1 VIEW (PORTABLE) Stat Exams 11/25/20 07:22 Completed CBC W DIFF Stat Lab 11/25/20 07:33 Completed CMP Stat Lab 11/25/20 07:33 Completed NT PRO BNP Stat Lab 11/25/20 07:33 Completed TROPONIN Q3H Lab 11/25/20 07:33 Completed TROPONIN Q3H Lab 11/25/20 10:30 Received TROPONIN Q3H Lab 11/25/20 13:30 Ordered TROPONIN Q3H Lab 11/25/20 16:30 Ordered TROPONIN Q3H Lab 11/25/20 19:30 Ordered Urine Triage Profile Stat Lab 11/25/20 07:55 Completed Medication Summary Discontinued Medications Generic Name Dose Route Start Last Admin Trade Name Veronique PRN Reason Stop Dose Admin Sodium Chloride 1,000 mls @ 999 mls/hr 11/25/20 07:21 11/25/20 08:42 Sodium Chloride 0.9% 1000 Ml IV 11/25/20 08:21 Infused .Q1H1M STA Infusion Sodium Chloride Confirm 11/25/20 07:32 Sodium Chloride 0.9% 1000 Ml Administered 11/25/20 07:33 Dose 1,000 mls @ ud .ROUTE .STK-MED ONE Lorazepam 1 mg 11/25/20 07:23 11/25/20 07:33 Ativan 2 Mg/1 Ml Vial IV 11/25/20 07:24 1 mg STAT ONE Administration Lorazepam Confirm 11/25/20 07:32 Ativan 2 Mg/1 Ml Vial Administered 11/25/20 07:33 Dose 2 mg .ROUTE .STK-MED ONE Lab/Rad Data: Laboratory Result Diagrams 11/25/20 07:33 11/25/20 07:33 Laboratory Results 11/25/20 11/25/20 11/25/20 Range/Units 07:55 07:33 07:33 WBC (4.0-10.5) K/mm3 RBC (4.1-5.4) M/mm3 Hgb (12.0-16.0) gm/dl Hct (35-47) % MCV (78-100) fl MCH (26-32) pg MCHC (32-36) g/dl RDW (11.5-14.0) % Plt Count (150-450) K/mm3 MPV (7.5-11.0) fl Gran % (36.0-66.0) % Eos # (Auto) (0-0.5) Absolute Lymphs (auto) (1.0-4.6) Absolute Monos (auto) (0.0-1.3) Lymphocytes % (24.0-44.0) % Monocytes % (0.0-12.0) % Eosinophils % (0.00-5.0) % Basophils % (0.0-0.4) % Absolute Granulocytes (1.4-6.9) Basophils # (0-0.4) Sodium 139 (137-145) mmol/L Potassium 3.8 (3.5-5.1) mmol/L Chloride 105 (98-107) mmol/L Carbon Dioxide 25 (22-30) mmol/L Anion Gap 11.8 (5-15) MEQ/L BUN 12 (7-17) mg/dL Creatinine 0.89 (0.52-1.04) mg/dL Estimated GFR > 60.0 ML/MIN Glucose 96 (74-106) mg/dL Calcium 10.1 (8.4-10.2) mg/dL Total Bilirubin 0.60 (0.2-1.3) mg/dL AST 27 (14-36) U/L ALT 18 (0-35) U/L Alkaline Phosphatase 72 (38-126) U/L Troponin I < 0.012 (0.000-0.034) ng/mL NT-Pro-B Natriuret Pep 200 (0-900) pg/mL Serum Total Protein 7.5 (6.3-8.2) g/dL Albumin 4.4 (3.5-5.0) g/dL Urine Opiates Level NEGATIVE (NEGATIVE) Ur Methadone NEGATIVE (NEGATIVE) Urine Barbiturates NEGATIVE (NEGATIVE) Ur Phencyclidine (PCP) NEGATIVE (NEGATIVE) Urine Amphetamine NEGATIVE (NEGATIVE) U Benzodiazepine Level NEGATIVE (NEGATIVE) Urine Cocaine NEGATIVE (NEGATIVE) Urine Marijuana (THC) NEGATIVE (NEGATIVE) 11/25/20 Range/Units 07:33 WBC 6.9 (4.0-10.5) K/mm3 RBC 4.42 (4.1-5.4) M/mm3 Hgb 13.6 (12.0-16.0) gm/dl Hct 41.4 (35-47) % MCV 93.7 (78-100) fl MCH 30.8 (26-32) pg MCHC 32.9 (32-36) g/dl RDW 12.7 (11.5-14.0) % Plt Count 241 (150-450) K/mm3 MPV 10.2 (7.5-11.0) fl Gran % 65.7 (36.0-66.0) % Eos # (Auto) 0.20 (0-0.5) Absolute Lymphs (auto) 1.60 (1.0-4.6) Absolute Monos (auto) 0.54 (0.0-1.3) Lymphocytes % 23.2 L (24.0-44.0) % Monocytes % 7.8 (0.0-12.0) % Eosinophils % 2.9 (0.00-5.0) % Basophils % 0.4 (0.0-0.4) % Absolute Granulocytes 4.52 (1.4-6.9) Basophils # 0.03 (0-0.4) Sodium (137-145) mmol/L Potassium (3.5-5.1) mmol/L Chloride (98-107) mmol/L Carbon Dioxide (22-30) mmol/L Anion Gap (5-15) MEQ/L BUN (7-17) mg/dL Creatinine (0.52-1.04) mg/dL Estimated GFR ML/MIN Glucose (74-106) mg/dL Calcium (8.4-10.2) mg/dL Total Bilirubin (0.2-1.3) mg/dL AST (14-36) U/L ALT (0-35) U/L Alkaline Phosphatase (38-126) U/L Troponin I (0.000-0.034) ng/mL NT-Pro-B Natriuret Pep (0-900) pg/mL Serum Total Protein (6.3-8.2) g/dL Albumin (3.5-5.0) g/dL Urine Opiates Level (NEGATIVE) Ur Methadone (NEGATIVE) Urine Barbiturates (NEGATIVE) Ur Phencyclidine (PCP) (NEGATIVE) Urine Amphetamine (NEGATIVE) U Benzodiazepine Level (NEGATIVE) Urine Cocaine (NEGATIVE) Urine Marijuana (THC) (NEGATIVE) - Progress Progress: improved, re-examined Progress Note: 11/25/20 11:10 Patient has nonfocal neuro exam throughout stay in the ER. EKG showed sinus rhythm with no acute ST elevations. Negative troponins, unremarkable chemistries. Chest x-ray negative. Normal white count. I have seen her couple of times in the past and ER and her symptoms were kind of similar. She has recently full stroke work-up done including MRI at [facility] which I have obtained the discharge summary with report saying normal MRI. She was evaluated by neurology in the past as well and I would have her follow-up with neurology again. She has appointment with Dr. Morales for EP studies to rule out any underlying arrhythmias. Patient part of symptoms are secondary to anxiety as well for which she is advised to continue with alprazolam which she is taking. Recommended blood pressure monitoring at home discussed signs symptoms associated with elevated blood pressure that needs to be watched. This point I do not think patient needs any further work-up in the ER and is stable for discharge. Counseled pt/family regarding: lab results, diagnosis, need for follow-up, rad results - Departure Departure Disposition: Home Clinical Impression: Dizziness, Anxiety Condition: Stable Critical Care Time: No Referrals: LUBA SINGH MD [Primary Care Provider] - (1-2 days for reevaluation) GHAZAL RODAS [NON-STAFF PHY W/O PRIVILEGES] - (1-2 days for reevaluation) Instructions: Anxiety, Adult (DC), Dizziness, Nonvertigo, (DC) Additional Instructions: Drink plenty of fluids. Follow-up with your primary care and neurologist for reevaluation. 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 Return to ER for u ncontrolled hypertension, dizziness lightheadedness, numbness tingling or focal weakness. Continue with current anxiety medications.
[2020-11-25 07:42] LABS: Absolute Neutrophil Ct (ANC) 4.52 (1.4-6.9); BASOPHIL % 0.4 % (0.0-0.4); Basophil (Absolute #) 0.03 (0-0.4); Eosinophil % 2.9 % (0.00-5.0); Hematocrit 41.4 % (35-47); Hemoglobin 13.6 gm/dl (12.0-16.0); Lymphocytes % 23.2 % (24.0-44.0); Mean Cell Volume 93.7 fl (78-100); Mean Corpuscular Hemoglobin 30.8 pg (26-32); Mean Corpuscular Hgb Concent. 32.9 g/dl (32-36); Mean Platelet Volume 10.2 fl (7.5-11.0); Monocyte (Absolute #) 0.54 (0.0-1.3); Monocytes % 7.8 % (0.0-12.0); Neutrophil % 65.7 % (36.0-66.0); Platelet Count 241 K/mm3 (150-450); Red Blood Count 4.42 M/mm3 (4.1-5.4); Red Cell Distribution Width 12.7 % (11.5-14.0); White Blood Count 6.9 K/mm3 (4.0-10.5)
[2020-11-25 08:11] LABS: ALBUMIN 4.4 g/dL (3.5-5.0); ALKALINE PHOSPHATASE 72 U/L (38-126); ANION GAP 11.8 MEQ/L (5-15); BLOOD UREA NITROGEN 12 mg/dL (7-17); CHLORIDE 105 mmol/L (98-107); Calcium 10.1 mg/dL (8.4-10.2); Carbon Dioxide 25 mmol/L (22-30); Creatinine 1 0.89 mg/dL (0.52-1.04); EST GLOMERULAR FILTRATION RATE > 60.0 ML/MIN; Glucose 96 mg/dL (74-106); NT PRO BNP 200 pg/mL (0-900); Potassium 3.8 mmol/L (3.5-5.1); SGOT/AST 27 U/L (14-36); SGPT/ALT 18 U/L (0-35); SODIUM 139 mmol/L (137-145); Total Protein 7.5 g/dL (6.3-8.2)
[2020-11-25 08:28] LABS: Amphetamine,Urine NEGATIVE (NEGATIVE); Barbiturate,Urine NEGATIVE (NEGATIVE); Benzodiazepine,Urine NEGATIVE (NEGATIVE); Cocaine,Urine NEGATIVE (NEGATIVE); Methadone,Urine NEGATIVE (NEGATIVE); PCP,Urine NEGATIVE (NEGATIVE); THC,Urine NEGATIVE (NEGATIVE)
[2020-11-25 08:49] LABS: Opiate,Urine NEGATIVE (NEGATIVE)
--- NOTE | 2020-11-25 09:02 | XRAY ---
Indication: Chest pain. Comparison: November 12, 2020. Portable chest continues to demonstrate normal heart, lungs, and bony thorax.
[2020-11-25 11:15] VITALS: BP 129/82; PULSE 63
[2020-11-25 11:19] VITALS: O2SAT 96
== END 2020-11-25 11:20 | disposition home or self-care (01) ==
LOC: ED 06:42
DX: I10 Essential (primary) hypertension (principal); R42 Dizziness and giddiness; R51.9 Headache, unspecified; R11.0 Nausea; R05 Cough; E03.9 Hypothyroidism, unspecified; Z79.899 Other long term (current) drug therapy
CPT/HCPCS: 36000; 36415; 71045; 80053; 80307; 83880; 84484; 85025; 93005; 93041; 96360; 96374; 99284; J2060

== ENCOUNTER 2020-12-04 15:21 | Inpatient (IN) | payer OTHER ==
[2020-12-04] MEDS: Sodium Chloride 0.9% 1000 ML 1,000 ML IV SCH (16:43)
[2020-12-04] MEDS ORDERED: Zofran 4 MG/2 ML VIAL IV PRN (16:58)
[2020-12-04] MEDS ORDERED: xanAX 0.25 MG PO PRN (17:06)
[2020-12-04 17:08] LABS: Absolute Neutrophil Ct (ANC) 7.14 (1.4-6.9); BASOPHIL % 0.3 % (0.0-0.4); Basophil (Absolute #) 0.03 (0-0.4); Eosinophil (Absolute #) 0.11 (0-0.5); Hematocrit 39.4 % (35-47); Hemoglobin 13.4 gm/dl (12.0-16.0); Lymphocyte (Absolute #) 2.56 (1.0-4.6); Lymphocytes % 23.9 % (24.0-44.0); Mean Corpuscular Hemoglobin 30.6 pg (26-32); Monocyte (Absolute #) 0.86 (0.0-1.3); Neutrophil % 66.8 % (36.0-66.0); Platelet Count 258 K/mm3 (150-450); Red Blood Count 4.38 M/mm3 (4.1-5.4); Red Cell Distribution Width 12.2 % (11.5-14.0); White Blood Count 10.7 K/mm3 (4.0-10.5)
[2020-12-04] MEDS: Miralax Powder 17GM PACKET PO SCH (18:31)
[2020-12-04] MEDS: TYLENOL EXTRA STRENGTH 500 MG PO PRN (18:31)
[2020-12-04 19:17] LABS: ALBUMIN 4.2 g/dL (3.5-5.0); ALKALINE PHOSPHATASE 69 U/L (38-126); ANION GAP 13.8 MEQ/L (5-15); BLOOD UREA NITROGEN 17 mg/dL (7-17); CHLORIDE 93 mmol/L (98-107); Calcium 10.2 mg/dL (8.4-10.2); Carbon Dioxide 22 mmol/L (22-30); Creatinine 1 0.87 mg/dL (0.52-1.04); EST GLOMERULAR FILTRATION RATE > 60.0 ML/MIN; Glucose 98 mg/dL (74-106); Potassium 4.6 mmol/L (3.5-5.1); SGOT/AST 27 U/L (14-36); SGPT/ALT 14 U/L (0-35); SODIUM 124 mmol/L (137-145); TSH, 3RD Generation 0.731 mIU/L (0.47-4.68); Total Protein 7.1 g/dL (6.3-8.2)
[2020-12-04 20:33] LABS: Appearance CLEAR (CLEAR); Bilirubin NEGATIVE (NEGATIVE); Blood NEGATIVE Ery/ul (0-5); Glucose NEGATIVE (NEGATIVE); Ketones TRACE (NEGATIVE); Leukocyte Esterase TRACE (NEGATIVE); Mucus SLIGHT /HPF (NEGATIVE); Nitrite NEGATIVE (NEGATIVE); Protein,Urine Dip NEGATIVE (Negative); Specific Gravity 1.011 (1.005-1.025); Urobilinogen NEGATIVE mg/dL (0-1); WBC 0-2 /HPF (0-5)
[2020-12-04 20:35] LABS: Bacteria NONE SEEN /HPF (NEGATIVE)
[2020-12-04] MEDS ORDERED: Zestril 10 MG PO SCH (22:00)
[2020-12-04] MEDS: Zestril 20 MG PO SCH ×2 (22:13→22:23)
[2020-12-05] MEDS ORDERED: SYNTHROID 75 MCG ONE (05:14)
[2020-12-05] MEDS: TYLENOL EXTRA STRENGTH 500 MG PO PRN ×2 (05:15→11:04)
[2020-12-05] MEDS: SYNTHROID 88 MCG PO SCH (05:16)
--- NOTE | 2020-12-05 08:34 | PCM.NOTE ---
Date and Time: 12/05/20831 Subjective Assessment: last 24 hours events noted. Patient is still dizzy - Review of Systems Constitutional: No Fever, No Chills Eyes: No Symptoms Ears, Nose, & Throat: No Symptoms Respiratory: No Cough, No Short Of Breath Cardiac: No Chest Pain, No Edema, No Syncope Abdominal/Gastrointestinal: No Abdominal Pain, No Nausea, No Vomiting, No Diarrhea Genitourinary Symptoms: No Dysuria Musculoskeletal: No Back Pain, No Neck Pain Skin: No Rash Neurological: Dizziness, No Focal Weakness, No Sensory Changes Psychological: No Symptoms Endocrine: No Symptoms Hematologic/Lymphatic: No Symptoms Immunological/Allergic: No Symptoms Objective Exam General Appearance: no apparent distress, alert Neurologic Exam: alert, oriented x 3, cooperative, normal mood/affect, nml cerebellar function, sensation nml, No motor deficits Skin Exam: normal color, warm, dry Eye Exam: PERRL, EOMI, eyes nml inspection Ears, Nose, Throat Exam: normal ENT inspection, pharynx normal, moist mucous membranes Neck Exam: normal inspection, non-tender, supple, full range of motion Respiratory Exam: normal breath sounds, lungs clear, No respiratory distress Cardiovascular Exam: regular rate/rhythm, normal heart sounds Gastrointestinal/Abdomen Exam: soft, No tenderness, No mass Extremity Exam: normal inspection, normal range of motion Back Exam: normal inspection, normal range of motion, No CVA tenderness, No vertebral tenderness Pelvic Exam: deferred Rectal Exam: deferred OBJECTIVE DATA Vital Signs: Vital Signs - 24 hr Temp Pulse Resp BP Pulse Ox 12/05/20 07:53 97.8 F 59 L 16 119/60 98 12/05/20 07:49 98.5 F 73 18 124/59 99 12/05/20 07:28 18 12/05/20 04:00 98.5 F 73 18 124/59 97 12/05/20 00:00 97.9 F 54 L 16 103/57 97 12/04/20 20:00 97.9 F 52 L 17 110/58 93 L 12/04/20 17:38 98.9 F 63 20 126/74 94 L 12/04/20 16:25 98.9 F 63 20 126/74 94 L 12/04/20 16:24 98.9 F 63 20 126/74 94 L Pain Assessment - Last Documented Pain Intensity 4 Pain Scale Used 0-10 Pain Scale Intake and Output: Intake & Output 12/02/20 12/03/20 12/04/20 12/05/20 11:59 11:59 11:59 11:59 Intake Total 873 Output Total 1050 Balance -177 Weight 60.5 kg Lab Results: Lab Results-Last 24 Hours 12/04/20 12/04/20 12/04/20 Range/Units 16:27 16:27 20:28 WBC 10.7 H (4.0-10.5) K/mm3 RBC 4.38 (4.1-5.4) M/mm3 Hgb 13.4 (12.0-16.0) gm/dl Hct 39.4 (35-47) % MCV 90.0 (78-100) fl MCH 30.6 (26-32) pg MCHC 34.0 (32-36) g/dl RDW 12.2 (11.5-14.0) % Plt Count 258 (150-450) K/mm3 MPV 11.0 (7.5-11.0) fl Gran % 66.8 H (36.0-66.0) % Eos # (Auto) 0.11 (0-0.5) Absolute Lymphs (auto) 2.56 (1.0-4.6) Absolute Monos (auto) 0.86 (0.0-1.3) Lymphocytes % 23.9 L (24.0-44.0) % Monocytes % 8.0 (0.0-12.0) % Eosinophils % 1.0 (0.00-5.0) % Basophils % 0.3 (0.0-0.4) % Absolute Granulocytes 7.14 H (1.4-6.9) Basophils # 0.03 (0-0.4) Sodium 124 L (137-145) mmol/L Potassium 4.6 (3.5-5.1) mmol/L Chloride 93 L (98-107) mmol/L Carbon Dioxide 22 (22-30) mmol/L Anion Gap 13.8 (5-15) MEQ/L BUN 17 (7-17) mg/dL Creatinine 0.87 (0.52-1.04) mg/dL Estimated GFR > 60.0 ML/MIN Glucose 98 (74-106) mg/dL Calcium 10.2 (8.4-10.2) mg/dL Total Bilirubin 0.60 (0.2-1.3) mg/dL AST 27 (14-36) U/L ALT 14 (0-35) U/L Alkaline Phosphatase 69 (38-126) U/L Serum Total Protein 7.1 (6.3-8.2) g/dL Albumin 4.2 (3.5-5.0) g/dL TSH 3rd Generation 0.731 (0.47-4.68) mIU/L Urine Color YELLOW (YELLOW) Urine Appearance CLEAR (CLEAR) Urine pH 7.0 (5-6) Ur Specific [place] 1.011 (1.005-1.025) Urine Protein NEGATIVE (Negative) Urine Ketones TRACE (NEGATIVE) Urine Blood NEGATIVE (0-5) Alejandro/ul Urine Nitrite NEGATIVE (NEGATIVE) Urine Bilirubin NEGATIVE (NEGATIVE) Urine Urobilinogen NEGATIVE (0-1) mg/dL Ur Leukocyte Esterase TRACE (NEGATIVE) Urine WBC (Auto) 0-2 (0-5) /HPF Urine RBC (Auto) NONE (0-2) /HPF U Epithel Cells (Auto) NONE (FEW) /HPF Urine Bacteria (Auto) NONE SEEN (NEGATIVE) /HPF Urine Mucus (Auto) SLIGHT (NEGATIVE) /HPF Urine Culture Reflexed NO (NO) Urine Glucose NEGATIVE (NEGATIVE) mg/dL Assessment/Plan (1) Dizziness Current Visit: Yes Status: Acute Assessment & Plan: Chief Complaint Diagnosis Dizziness; Weakness Allergies Allergy/AdvReac Type Severity Reaction Status Date / Time No Known Drug Allergies Allergy Verified 11/12/20 21:03 Vital Signs (Last 24 hours) Temp Pulse Resp BP Pulse Ox 12/06/20 11:00 98.7 F 69 16 125/66 96 12/06/20 07:52 18 12/06/20 07:00 98.6 F 71 16 129/69 95 12/06/20 04:00 16 12/06/20 03:00 98.2 F 75 16 132/65 96 12/06/20 00:00 18 12/05/20 23:00 99.1 F 60 18 125/66 98 12/05/20 19:48 97.8 F 62 18 103/59 96 12/05/20 19:45 18 12/05/20 16:42 98.2 F 59 L 16 124/68 95 12/05/20 13:55 118/64 12/05/20 12:00 17 Home Medications Medication Instructions Recorded Confirmed Last Taken Type Alprazolam 0.25 mg [xanAX 0.25 0.25 mg PO DAILY PRN PRN 12/04/20 12/04/20 Unknown History MG] Ondansetron ODT 4 MG [Zofran 4 mg PO Q6H PRN PRN 12/04/20 12/04/20 Unknown History Odt 4 mg] Polyethylene Glycol 3350 17 gm 17 gm PO DAILY 12/04/20 12/04/20 Unknown History [Miralax Powder 17GM PACKET] hydroCHLOROthiazide 12.5 mg PO DAILY 12/04/20 12/04/20 12/04/20 History [Hydrochlorothiazide] Current Medications Generic Name Dose Route Start Last Admin Trade Name Freq PRN Reason Stop Dose Admin Acetaminophen 500 mg 12/04/20 18:22 12/05/20 11:04 Tylenol Extra Strength 500 Mg PO 01/03/21 18:21 500 mg Q4H PRN PRN Administration HEADACHE Alprazolam 0.25 mg 12/04/20 17:06 Xanax 0.25 Mg PO 01/03/21 17:05 DAILY PRN PRN ANXIETY Aspirin 81 mg 12/05/20 10:00 12/06/20 09:14 Ecotrin 81 Mg PO 01/04/21 09:59 81 mg DAILY ALESSIA Administration Fluticasone Propionate 0 gm 12/05/20 10:00 12/06/20 09:14 Flonase Nasal NS 01/04/21 09:59 1 gm DAILY ALESSIA Administration Sodium Chloride 1,000 mls @ 50 mls/hr 12/04/20 16:30 12/06/20 04:58 Sodium Chloride 0.9% 1000 Ml IV 01/03/21 16:29 50 mls/hr .Q20H ALESSIA Administration Levothyroxine Sodium 88 mcg 12/05/20 04:30 12/06/20 04:58 Synthroid 88 Mcg PO 01/04/21 04:29 75 mcg 0430 ALESSIA Administration Lisinopril 20 mg 12/04/20 22:00 12/06/20 09:15 Zestril 20 Mg PO 01/03/21 21:59 Not Given BID ALESSIA Metoprolol Succinate 25 mg 12/05/20 10:00 12/06/20 09:15 Toprol-Xl 25mg Tablets PO 01/04/21 09:59 Not Given DAILY ALESSIA Ondansetron HCl 4 mg 12/04/20 16:58 12/04/20 17:04 Zofran 4 Mg/2 Ml Vial IV 01/03/21 16:57 4 mg Q6H PRN PRN Administration NAUSEA/VOMITING Paroxetine HCl 10 mg 12/05/20 10:00 12/06/20 09:14 Paxil 20 Mg PO 01/04/21 09:59 10 mg DAILY ALESSIA Administration Polyethylene Glycol 17 gm 12/04/20 18:22 12/06/20 09:14 Miralax Powder 17gm Packet PO 01/03/21 18:21 17 gm DAILY ALESSIA Administration Discontinued Medications Generic Name Dose Route Start Last Admin Trade Name Freq PRN Reason Stop Dose Admin Levothyroxine Sodium Confirm 12/05/20 05:14 Synthroid 75 Mcg Administered 12/05/20 05:15 Dose 75 mcg .ROUTE .STK-MED ONE Levothyroxine Sodium Confirm 12/06/20 04:49 Synthroid 75 Mcg Administered 12/06/20 04:50 Dose 75 mcg .ROUTE .STK-MED ONE Intake & Output (Last 24 hours) 12/03/20 12/04/20 12/05/20 12/06/20 11:59 11:59 11:59 11:59 Intake Total 1053 2479 Output Total 1850 1550 Balance -797 929 Weight 60.5 kg Laboratory Results (Last 24 hours) 12/06/20 12/06/20 12/06/20 05:30 05:26 05:26 WBC 5.4 RBC 4.34 Hgb 13.2 Hct 40.5 MCV 93.3 MCH 30.4 MCHC 32.6 RDW 12.5 Plt Count 231 MPV 10.5 Gran % 44.9 Eos # (Auto) 0.27 Absolute Lymphs (auto) 2.12 Absolute Monos (auto) 0.58 Lymphocytes % 39.0 Monocytes % 10.7 Eosinophils % 5.0 Basophils % 0.4 Absolute Granulocytes 2.44 Basophils # 0.02 Sodium 135 L D Potassium 4.7 Chloride 101 Carbon Dioxide 30 Anion Gap 8.8 BUN 10 Creatinine 0.80 Estimated GFR > 60.0 Glucose 89 Calcium 10.0 Troponin I < 0.012 Orders (Last 24 hours) Category Date Time Status BMP AM.LAB Lab 12/06/20 05:26 Completed CBC W DIFF AM.LAB Lab 12/06/20 05:26 Completed TROPONIN Stat Lab 12/06/20 05:30 Completed Levothyroxine Sodium 75 Mcg [Synthroid 75 Mcg] Med 12/06/20 04:49 Discontinued 75 mcg .ROUTE .STK-MED ONE Patient Care Notes (Last 24 hours) 12/06/20 07:50 Nursing Note by Ruby Jones assessment complete, pt complains of continuing dizziness and weakness. pt is concerned about going home as she feels she will be back. Initialized on 12/06/20 07:50 - END OF NOTE Code(s): R42 - DIZZINESS AND GIDDINESS (2) Hypertension Current Visit: No Status: Chronic Qualifiers: Hypertension type: essential hypertension Qualified Code(s): I10 - Essential (primary) hypertension Code(s): I10 - ESSENTIAL (PRIMARY) HYPERTENSION
[2020-12-05] MEDS: Paxil 20 MG PO SCH (09:10)
[2020-12-05] MEDS: ECOTRIN 81 MG PO SCH (09:10)
[2020-12-05] MEDS: Miralax Powder 17GM PACKET PO SCH (09:10)
[2020-12-05] MEDS: Zestril 20 MG PO SCH ×2 (09:11→20:25)
[2020-12-05] MEDS: Toprol-Xl 25MG Tablets PO SCH (09:11)
[2020-12-05] MEDS: Flonase NASAL NS SCH (09:11)
[2020-12-05] MEDS: Sodium Chloride 0.9% 1000 ML 1,000 ML IV SCH (09:14)
[2020-12-05] MEDS ORDERED: NON-FORMULARY ITEM (Paroxetine Hcl [Paroxetine Hcl] 10 MG) PO SCH (10:00)
[2020-12-05] MEDS ORDERED: BABY ASPIRIN 81 MG CHEW PO SCH (10:00)
[2020-12-06] MEDS ORDERED: SYNTHROID 75 MCG ONE (04:49)
[2020-12-06] MEDS: Sodium Chloride 0.9% 1000 ML 1,000 ML IV SCH (04:58)
[2020-12-06] MEDS: SYNTHROID 88 MCG PO SCH (04:58)
[2020-12-06 05:52] LABS: Absolute Neutrophil Ct (ANC) 2.44 (1.4-6.9); BASOPHIL % 0.4 % (0.0-0.4); Basophil (Absolute #) 0.02 (0-0.4); Eosinophil (Absolute #) 0.27 (0-0.5); Hematocrit 40.5 % (35-47); Hemoglobin 13.2 gm/dl (12.0-16.0); Lymphocyte (Absolute #) 2.12 (1.0-4.6); Mean Cell Volume 93.3 fl (78-100); Mean Corpuscular Hemoglobin 30.4 pg (26-32); Mean Corpuscular Hgb Concent. 32.6 g/dl (32-36); Mean Platelet Volume 10.5 fl (7.5-11.0); Monocyte (Absolute #) 0.58 (0.0-1.3); Monocytes % 10.7 % (0.0-12.0); Neutrophil % 44.9 % (36.0-66.0); Platelet Count 231 K/mm3 (150-450); Red Blood Count 4.34 M/mm3 (4.1-5.4); Red Cell Distribution Width 12.5 % (11.5-14.0); White Blood Count 5.4 K/mm3 (4.0-10.5)
[2020-12-06 06:15] LABS: ANION GAP 8.8 MEQ/L (5-15); BLOOD UREA NITROGEN 10 mg/dL (7-17); CHLORIDE 101 mmol/L (98-107); Carbon Dioxide 30 mmol/L (22-30); EST GLOMERULAR FILTRATION RATE > 60.0 ML/MIN; Glucose 89 mg/dL (74-106); Potassium 4.7 mmol/L (3.5-5.1); SODIUM 135 mmol/L (137-145)
[2020-12-06] MEDS: Miralax Powder 17GM PACKET PO SCH (09:14)
[2020-12-06] MEDS: Flonase NASAL NS SCH (09:14)
[2020-12-06] MEDS: Paxil 20 MG PO SCH (09:14)
[2020-12-06] MEDS: ECOTRIN 81 MG PO SCH (09:14)
[2020-12-06] MEDS: Zestril 20 MG PO SCH ×2 (09:15→23:31)
[2020-12-06] MEDS: Toprol-Xl 25MG Tablets PO SCH (09:15)
--- NOTE | 2020-12-06 11:52 | PCM.NOTE ---
Date and Time: 12/06/20 1150 Subjective Assessment: doing ok - Review of Systems Constitutional: No Fever, No Chills Eyes: No Symptoms Ears, Nose, & Throat: No Symptoms Respiratory: No Cough, No Short Of Breath Cardiac: No Chest Pain, No Edema, No Syncope Abdominal/Gastrointestinal: No Abdominal Pain, No Nausea, No Vomiting, No Diarrhea Genitourinary Symptoms: No Dysuria Musculoskeletal: No Back Pain, No Neck Pain Skin: No Rash Neurological: No Dizziness, No Focal Weakness, No Sensory Changes Psychological: No Symptoms Endocrine: No Symptoms Hematologic/Lymphatic: No Symptoms Immunological/Allergic: No Symptoms Objective Exam General Appearance: no apparent distress, alert Neurologic Exam: alert, oriented x 3, cooperative, normal mood/affect, nml cerebellar function, sensation nml, No motor deficits Skin Exam: normal color, warm, dry Eye Exam: PERRL, EOMI, eyes nml inspection Ears, Nose, Throat Exam: normal ENT inspection, pharynx normal, moist mucous membranes Neck Exam: normal inspection, non-tender, supple, full range of motion Respiratory Exam: normal breath sounds, lungs clear, No respiratory distress Cardiovascular Exam: regular rate/rhythm, normal heart sounds Gastrointestinal/Abdomen Exam: soft, No tenderness, No mass Extremity Exam: normal inspection, normal range of motion Back Exam: normal inspection, normal range of motion, No CVA tenderness, No vertebral tenderness Pelvic Exam: deferred Rectal Exam: deferred OBJECTIVE DATA Vital Signs: Vital Signs - 24 hr Temp Pulse Resp BP Pulse Ox 12/06/20 11:00 98.7 F 69 16 125/66 96 12/06/20 07:52 18 12/06/20 07:00 98.6 F 71 16 129/69 95 12/06/20 04:00 16 12/06/20 03:00 98.2 F 75 16 132/65 96 12/06/20 00:00 18 12/05/20 23:00 99.1 F 60 18 125/66 98 12/05/20 19:48 97.8 F 62 18 103/59 96 12/05/20 19:45 18 12/05/20 16:42 98.2 F 59 L 16 124/68 95 12/05/20 13:55 118/64 12/05/20 12:00 17 Pain Assessment - Last Documented Pain Intensity 0 Pain Scale Used 0-10 Pain Scale Intake and Output: Intake & Output 01/21/21 01/22/21 01/23/21 01/24/21 11:59 11:59 11:59 11:59 Intake Total 1053 2479 Output Total 0640 8070 Balance -797 929 Weight 60.5 kg Lab Results: Lab Results-Last 24 Hours 12/06/20 12/06/20 12/06/20 Range/Units 05:26 05:26 05:30 WBC 5.4 (4.0-10.5) K/mm3 RBC 4.34 (4.1-5.4) M/mm3 Hgb 13.2 (12.0-16.0) gm/dl Hct 40.5 (35-47) % MCV 93.3 (78-100) fl MCH 30.4 (26-32) pg MCHC 32.6 (32-36) g/dl RDW 12.5 (11.5-14.0) % Plt Count 231 (150-450) K/mm3 MPV 10.5 (7.5-11.0) fl Gran % 44.9 (36.0-66.0) % Eos # (Auto) 0.27 (0-0.5) Absolute Lymphs (auto) 2.12 (1.0-4.6) Absolute Monos (auto) 0.58 (0.0-1.3) Lymphocytes % 39.0 (24.0-44.0) % Monocytes % 10.7 (0.0-12.0) % Eosinophils % 5.0 (0.00-5.0) % Basophils % 0.4 (0.0-0.4) % Absolute Granulocytes 2.44 (1.4-6.9) Basophils # 0.02 (0-0.4) Sodium 135 L D (137-145) mmol/L Potassium 4.7 (3.5-5.1) mmol/L Chloride 101 (98-107) mmol/L Carbon Dioxide 30 (22-30) mmol/L Anion Gap 8.8 (5-15) MEQ/L BUN 10 (7-17) mg/dL Creatinine 0.80 (0.52-1.04) mg/dL Estimated GFR > 60.0 ML/MIN Glucose 89 (74-106) mg/dL Calcium 10.0 (8.4-10.2) mg/dL Troponin I < 0.012 (0.000-0.034) ng/mL Assessment/Plan (1) Dizziness Current Visit: Yes Status: Acute Assessment & Plan: improving Code(s): R42 - DIZZINESS AND GIDDINESS (2) Hypertension Current Visit: Yes Status: Chronic Qualifiers: Hypertension type: essential hypertension Qualified Code(s): I10 - Essential (primary) hypertension Code(s): I10 - ESSENTIAL (PRIMARY) HYPERTENSION
[2020-12-07] MEDS: Sodium Chloride 0.9% 1000 ML 1,000 ML IV SCH (00:05)
[2020-12-07 05:00] LABS: Hemoglobin 12.3 gm/dl (12.0-16.0); Mean Cell Volume 94.3 fl (78-100); Mean Corpuscular Hemoglobin 30.5 pg (26-32); Mean Corpuscular Hgb Concent. 32.4 g/dl (32-36); Mean Platelet Volume 10.2 fl (7.5-11.0); Platelet Count 198 K/mm3 (150-450); Red Blood Count 4.03 M/mm3 (4.1-5.4); Red Cell Distribution Width 12.5 % (11.5-14.0); White Blood Count 4.2 K/mm3 (4.0-10.5)
[2020-12-07] MEDS: SYNTHROID 88 MCG PO SCH (05:11)
[2020-12-07 05:24] LABS: ANION GAP 7.8 MEQ/L (5-15); BLOOD UREA NITROGEN 10 mg/dL (7-17); CHLORIDE 104 mmol/L (98-107); Calcium 9.7 mg/dL (8.4-10.2); Carbon Dioxide 27 mmol/L (22-30); Creatinine 1 0.73 mg/dL (0.52-1.04); EST GLOMERULAR FILTRATION RATE > 60.0 ML/MIN; Glucose 95 mg/dL (74-106); Potassium 4.5 mmol/L (3.5-5.1); SODIUM 135 mmol/L (137-145)
[2020-12-07] MEDS: ECOTRIN 81 MG PO SCH (09:52)
[2020-12-07] MEDS: Paxil 20 MG PO SCH (09:52)
[2020-12-07] MEDS: Flonase NASAL NS SCH (09:55)
[2020-12-07] MEDS: Toprol-Xl 25MG Tablets PO SCH (09:58)
[2020-12-07] MEDS: Miralax Powder 17GM PACKET PO SCH (09:58)
[2020-12-07] MEDS: Zestril 20 MG PO SCH ×2 (09:59→23:20)
[2020-12-07] MEDS: TYLENOL EXTRA STRENGTH 500 MG PO PRN (11:02)
--- NOTE | 2020-12-07 12:41 | PCM.NOTE ---
Date and Time: 12/07/20 1239 Subjective Assessment: 55 yr old female seen and examined this am. She reports she still does not feel well. She continues to have abnormal sensation with her head. She still would like to keep up with OBJECTIVE DATA Vital Signs: Vital Signs - 24 hr Temp Pulse Resp BP Pulse Ox 12/07/20 12:00 16 12/07/20 11:00 98.6 F 75 16 150/65 98 12/07/20 08:00 18 12/07/20 07:00 98.4 F 79 18 139/82 97 12/07/20 03:59 18 12/07/20 03:00 99.4 F 80 18 131/70 96 12/07/20 00:00 17 12/06/20 23:00 98.2 F 68 17 130/68 96 12/06/20 20:00 18 12/06/20 18:52 97.9 F 70 18 104/60 98 12/06/20 16:00 18 12/06/20 15:00 98.1 F 66 16 121/67 95 Pain Assessment - Last Documented Pain Intensity 0 Pain Scale Used 0-10 Pain Scale Intake and Output: Intake & Output 12/05/20 12/06/20 12/07/20 12/08/20 11:59 11:59 11:59 11:59 Intake Total 1053 2479 3154 Output Total 1850 1550 Balance -457 136 6182 Weight 60.5 kg Lab Results: Lab Results-Last 24 Hours 12/07/20 12/07/20 Range/Units 04:35 05:00 WBC 4.2 (4.0-10.5) K/mm3 RBC 4.03 L (4.1-5.4) M/mm3 Hgb 12.3 (12.0-16.0) gm/dl Hct 38.0 (35-47) % MCV 94.3 (78-100) fl MCH 30.5 (26-32) pg MCHC 32.4 (32-36) g/dl RDW 12.5 (11.5-14.0) % Plt Count 198 (150-450) K/mm3 MPV 10.2 (7.5-11.0) fl Sodium 135 L (137-145) mmol/L Potassium 4.5 (3.5-5.1) mmol/L Chloride 104 (98-107) mmol/L Carbon Dioxide 27 (22-30) mmol/L Anion Gap 7.8 (5-15) MEQ/L BUN 10 (7-17) mg/dL Creatinine 0.73 (0.52-1.04) mg/dL Estimated GFR > 60.0 ML/MIN Glucose 95 (74-106) mg/dL Calcium 9.7 (8.4-10.2) mg/dL
[2020-12-08] MEDS: SYNTHROID 88 MCG PO SCH (05:49)
[2020-12-08] MEDS: TYLENOL EXTRA STRENGTH 500 MG PO PRN (06:36)
[2020-12-08] MEDS: Sodium Chloride 0.9% 1000 ML 1,000 ML IV SCH (09:01)
--- NOTE | 2020-12-08 09:08 | PCM.NOTE ---
Date and Time: 12/08/20904 Subjective Assessment: Pt is feeling better today, her head feels "almost normal." Her BP have been 125-150 systolic, 65-79 diastolic. - Review of Systems Constitutional: No Fever Abdominal/Gastrointestinal: No Vomiting Objective Exam General Appearance: no apparent distress, alert Neurologic Exam: oriented x 3, cooperative, manager hematology II-XII nml as tested, other (visual arenas intact throughout. [employer] 5/5 bilat.) Skin Exam: normal color, warm, dry, No rash Eye Exam: eyes nml inspection Neck Exam: normal inspection, non-tender, No lymphadenopathy Respiratory Exam: normal breath sounds, lungs clear, No crackles/rales, No rhonchi, No wheezing Cardiovascular Exam: regular rate/rhythm, normal heart sounds, No murmur Extremity Exam: normal inspection, No pedal edema, No swelling Back Exam: normal inspection, No rash OBJECTIVE DATA Vital Signs: Vital Signs - 24 hr Temp Pulse Resp BP Pulse Ox 12/08/20 07:49 16 12/08/20 07:00 97.9 F 79 13 138/79 94 L 12/08/20 04:00 14 12/08/20 03:00 98.7 F 80 12 142/75 96 12/08/20 00:00 16 12/07/20 23:00 98.2 F 76 16 138/78 98 12/07/20 20:00 18 12/07/20 19:00 97.8 F 76 18 140/75 95 12/07/20 15:34 16 12/07/20 15:00 97.9 F 77 16 125/75 97 12/07/20 12:00 16 12/07/20 11:00 98.6 F 75 16 150/65 98 Pain Assessment - Last Documented Pain Intensity 0 Pain Scale Used [facility] Intake and Output: Intake & Output 12/05/20 12/06/20 12/07/20 12/08/20 11:59 11:59 11:59 11:59 Intake Total 1053 2479 3154 1100 Output Total 1850 1550 Balance -505 846 2105 1100 Weight 60.5 kg Lab Results: Lab Results-Last 24 Hours 12/07/20 Range/Units 04:35 ESR 6 (0-20) mm/hr Assessment/Plan (1) Dizziness Current Visit: Yes Status: Acute Assessment & Plan: Much improved. Advised pt to be up today as much as possible. Code(s): R42 - DIZZINESS AND GIDDINESS (2) Hypertension Current Visit: Yes Status: Chronic Qualifiers: Hypertension type: essential hypertension Qualified Code(s): I10 - Essential (primary) hypertension Assessment & Plan: Will restart toprol 25mg XL daily as her BP is increasing slowly. Code(s): I10 - ESSENTIAL (PRIMARY) HYPERTENSION (3) Anxiety Current Visit: No Status: Acute Code(s): F41.9 - ANXIETY DISORDER, UNSPECIFIED (4) Headache Current Visit: No Status: Acute Assessment & Plan: Basically resolved. Will see if it returns with increase in activity today. Likely home tomorrow. Code(s): R51.9 - HEADACHE, UNSPECIFIED (5) Neurogenic syncope Current Visit: No Status: Acute Code(s): R55 - SYNCOPE AND COLLAPSE
[2020-12-08] MEDS: Flonase NASAL NS SCH (10:09)
[2020-12-08] MEDS: Toprol-Xl 25MG Tablets PO SCH (10:09)
[2020-12-08] MEDS: ECOTRIN 81 MG PO SCH (10:09)
[2020-12-08] MEDS: Zestril 20 MG PO SCH ×2 (10:09→23:39)
[2020-12-08] MEDS: Miralax Powder 17GM PACKET PO SCH (10:10)
[2020-12-08] MEDS: Paxil 20 MG PO SCH (10:10)
[2020-12-09] MEDS: SYNTHROID 88 MCG PO SCH (03:48)
[2020-12-09] MEDS: TYLENOL EXTRA STRENGTH 500 MG PO PRN ×2 (03:50→08:33)
[2020-12-09 07:12] VITALS: BP 133/72; PULSE 60; O2SAT 98
--- NOTE | 2020-12-09 08:53 | PCM.DS ---
Discharge Summary Date of Admission: 12/04/20 15:53 Admitting Physician: LUBA CALDERON MD Primary Care Provider: LUBA CALDERON MD Allergies Allergies No Known Drug Allergies Allergy (Verified 11/12/20 21:03) Hospital Summary - Hospital Course Hospital Course: Pt is 55yo female pt of Dr. Calderon's from [facility] with HTN and recently dx neurogenic syncope who was admitted with dizziness and SHANKS. Has had extensive cardiac and neurological workup, some of which is still pending (echocardiogram and tilt table). Pt's BP has been somewhat labile here, but some of this is thought to be due to anxiety. Last night systolic was 155, but after application of essential oils it dropped to 107 systolic. This morning the pt is quite anxious, which she feels is giving her some headache - she is taking tylenol and xanax. Head was feeling fine prior to this. Yesterday she was up out of bed x 4, weakness is much improved. There was a question several days ago whether the pt had some visual field deficits, but when I tested her yesterday they were all intact. Will discharge pt to home. Continue home meds. New rx for xanax prn. F/u with Dr. Calderon next week. - Vitals & Intake/Output Vital Signs: Vital Signs Temperature 98.1 F 12/09/20 07:00 Pulse Rate 60 12/09/20 07:00 Respiratory Rate 16 12/09/20 07:40 Blood Pressure 133/72 12/09/20 07:00 O2 Sat by Pulse Oximetry 98 12/09/20 07:00 Intake & Output: Intake & Output 12/06/20 12/07/20 12/08/20 12/09/20 11:59 11:59 11:59 11:59 Intake Total 2479 3154 1340 860 Output Total 1550 Balance 929 3154 1340 860 - Lab Result Diagrams: 12/07/20 05:00 12/07/20 04:35 - Procedures and Test Procedures and Tests throughout Hospitalization: Therapy Orders & Screens 12/07/20 10:00 PT Eval & Treat ( Order) ONCE Reason for Eval:: WEAKNESS Diagnosis: Dizziness; Weakness Discharge Exam General Appearance: no apparent distress, alert, anxiety Neurologic Exam: oriented x 3, cooperative Eye Exam: eyes nml inspection Ears, Nose, Throat Exam: moist mucous membranes Neck Exam: normal inspection Respiratory Exam: normal breath sounds, lungs clear, No crackles/rales, No rhonchi, No wheezing Cardiovascular Exam: regular rate/rhythm, normal heart sounds, No murmur Back Exam: normal inspection, No rash Extremity Exam: normal inspection, No pedal edema, No swelling Skin Exam: normal color, warm, dry, No rash Final Diagnosis/Problem List - Final Discharge Diagnosis/Problem (1) Dizziness Current Visit: Yes Status: Resolved Code(s): R42 - DIZZINESS AND GIDDINESS (2) Hypertension Current Visit: Yes Status: Chronic Code(s): I10 - ESSENTIAL (PRIMARY) HYPERTENSION (3) Anxiety Current Visit: No Status: Chronic Assessment & Plan: INSPECT appropriate today 12/09/20. Code(s): F41.9 - ANXIETY DISORDER, UNSPECIFIED (4) Headache Current Visit: No Status: Resolved Code(s): R51.9 - HEADACHE, UNSPECIFIED (5) Neurogenic syncope Current Visit: No Status: Acute Code(s): R55 - SYNCOPE AND COLLAPSE - Discharge Disposition: Home, Self-Care Condition: Good Prescriptions: Continue Lisinopril 10 mg [Zestril 10 MG] 20 mg PO BID Levothyroxine Sodium 88 Mcg [Synthroid 88 Mcg] 88 mcg PO 0430 Metoprolol Succinate 25 mg Xl* [Toprol-Xl 25MG Tablets] 25 mg PO DAILY Aspirin 81 gm Chew [Baby Aspirin 81 mg Chew] 81 mg PO DAILY PARoxetine HCL [Paroxetine HCl] 10 mg PO DAILY Fluticasone Propionate [Flonase NASAL] 16 gm NS DAILY Ondansetron ODT 4 MG [Zofran Odt 4 mg] 4 mg PO Q6H PRN PRN PRN Reason: Nausea hydroCHLOROthiazide [Hydrochlorothiazide] 12.5 mg PO DAILY Polyethylene Glycol 3350 17 gm [Miralax Powder 17GM PACKET] 17 gm PO DAILY Alprazolam 0.25 mg [xanAX 0.25 MG] 0.25 mg PO DAILY PRN PRN #30 tablet PRN Reason: Anxiety Instructions: Syncope (Fainting) (DC) Follow up with: LUBA CALDERON MD [Primary Care Provider] - Call for Appointment
== END 2020-12-09 09:36 | disposition home or self-care (01) | DRG 149 ==
LOC: MED SURG 15:53 → OBSVTOIN 12-05 08:32
PROVIDERS: ADMIT Family Medicine; ATTEND Family Medicine
DX: R42 Dizziness and giddiness (principal); I10 Essential (primary) hypertension; R51.9 Headache, unspecified; R55 Syncope and collapse; Z79.899 Other long term (current) drug therapy; F41.9 Anxiety disorder, unspecified
CPT/HCPCS: 36415; 62329; 70450; 80048; 80053; 81001; 82945; 84443; 84484; 85025; 85027; 85652; 87070; 93268; J2405; A9270-GY; G0378

== ENCOUNTER 2021-04-04 14:27 | Emergency (ER) | payer OTHER ==
--- NOTE | 2021-04-04 14:29 | ERPHSYRPT ---
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 Goodrich, for chronic recurrent chest pain. She has never been diagnosed with coronary artery disease and does not have a history of cardiac stent placement. Her primary care physician is Dr. Calderon. She does have a history of hypothyroidism and hypertension and severe panic attacks/anxiety disorder. Patient states that left-sided chest pain began yesterday and worsened and was very bad today. She took 3 doses of her low-dose Xanax in addition to her other medication and this did not help her pain. She took 1 baby aspirin as well. Patient does not have a cough. She has had no fevers. She has no nausea vomiting or diarrhea. She arrives in severe panic mode. She is tearful and shaking patient states that she has no new stressors Timing/Duration: yesterday Quality: sharpness, stabbing Location: other (Anterior left side) Chest Pain Radiation: arm Severity of Pain-Max: moderate (Left arm) Severity of Pain-Current: moderate Modifying Factors: Improves With: nothing Associated Symptoms: denies symptoms Prior Chest Pain/Cardiac Workup: cardiac cath, recently seen/treated Nitro Today/Relief: no nitro taken today Aspirin Treatment Today: 81 mg x 1, provided at home Allergies/Adverse Reactions: No Known Drug Allergies Allergy (Verified 04/04/21 14:33) Home Medications: Levothyroxine Sodium 88 Mcg [Synthroid 88 Mcg] 88 mcg PO 0430 09/11/19 [History] Metoprolol Succinate 25 mg Xl* [Toprol-Xl 25MG Tablets] 25 mg PO DAILY 11/12/20 [History] Aspirin 81 gm Chew [Baby Aspirin 81 mg Chew] 81 mg PO DAILY 11/17/20 [History] Fluticasone Propionate [Flonase NASAL] 16 gm NS DAILY 11/25/20 [History] Buspirone HCl 1 tab PO DAILY 04/04/21 [History] HydrALAzine HCL 25 MG TAB [Apresoline 25 MG TABLET] 1 tab PO QID 04/04/21 [History] Losartan Potassium [Cozaar] 1 tab PO QID 04/04/21 [History] Hx Tetanus, Diphtheria Vaccination/Date Given: Yes Hx Influenza Vaccination/Date Given: No Hx Pneumococcal Vaccination/Date Given: No Travel Risk - International Travel Have you traveled outside of the country in past 3 weeks: No - Coronavirus Screening Are you exhibiting any of the following symptoms?: No Close contact with a COVID-19 positive Pt in past 14-21 Days: No - Review of Systems Constitutional: No Symptoms Eyes: No Symptoms Ears, Nose, & Throat: No Symptoms Respiratory: No Symptoms Cardiac: Chest Pain Abdominal/Gastrointestinal: No Symptoms Genitourinary Symptoms: No Symptoms Musculoskeletal: No Symptoms Skin: No Symptoms Neurological: No Symptoms Psychological: No Symptoms Endocrine: No Symptoms Hematologic/Lymphatic: No Symptoms Immunological/Allergic: No Symptoms All Other Systems: Reviewed and Negative - Past Medical History Pertinent Past Medical History: Yes Neurological History: Migraines ENT History: No Pertinent History Cardiac History: Arrhythmia, Hypertension Respiratory History: No Pertinent History Endocrine Medical History: Hypothyroidism Musculoskeletal History: No Pertinent History GI Medical History: Polyps History: No Pertinent History Psycho-Social History: No Pertinent History Female Reproductive Disorders: No Pertinent History Other Medical History: to have lumbar puncture tomorrow for thyroid testing. Mitral valve regurgation, tachycardia. BP spiking in the past. Irregular heartbeat. - Past Surgical History Past Surgical History: Yes Neuro Surgical History: No Pertinent History Cardiac: No Pertinent History Respiratory: No Pertinent History Gastrointestinal: No Pertinent History Genitourinary: Other Musculoskeletal: Other Female Surgical History: No Pertinent History Other Surgical History: CONSTRUCTION staple removed from heel; uterine polyp remova; - Social History Smoking Status: Never smoker Exposure to second hand smoke: No Drug Use: none Patient Lives Alone: No - Nursing Vital Signs Nursing Vital Signs: Initial Vital Signs Temperature 98.6 F 04/04/21 14:33 Pulse Rate 111 H 04/04/21 14:33 Respiratory Rate 21 04/04/21 14:33 Blood Pressure 159/103 04/04/21 14:33 O2 Sat by Pulse Oximetry 97 04/04/21 14:33 Pain Scale Pain Intensity 1 - Physical Exam General Appearance: mild distress, alert, anxiety Eye Exam: PERRL/EOMI, eyes nml inspection Ears, Nose, Throat Exam: normal ENT inspection, moist mucous membranes Neck Exam: normal inspection, non-tender, supple, full range of motion Respiratory Exam: normal breath sounds, lungs clear, airway intact, No chest tenderness, No respiratory distress Cardiovascular Exam: tachycardia Gastrointestinal/Abdomen Exam: soft, normal bowel sounds, No tenderness Pelvic Exam: not done Rectal Exam: not done Back Exam: normal inspection, normal range of motion, No CVA tenderness, No vertebral tenderness Extremity Exam: normal inspection, normal range of motion, pelvis stable Neurologic Exam: alert, oriented x 3, cooperative, surface hydrologist II-XII nml as tested, normal mood/affect, nml cerebellar function, nml station & gait, sensation nml Skin Exam: normal color, warm, dry Lymphatic Exam: No adenopathy SpO2 Interpretation: normal O2 Delivery: Room Air - Course Nursing assessment & vital signs reviewed: Yes EKG Interpreted by Me: RATE (90), Sinus Rhythm, NORMAL AXIS, NORMAL INTERVALS, NORMAL QRS, NORMAL ST-T, Other (No acute ischemic changes on today's EKG. No change when compared to EKG dated 11/25/2020) Ordered Tests: Active Orders 24 hr Category Date Time Status Glass Washer STAT Care 04/04/21 14:36 Active EKG-ER Only STAT Care 04/04/21 14:35 Active IV Insertion STAT Care 04/04/21 14:35 Active Pulse Oximetry (ED) STAT Care 04/04/21 14:35 Active CHEST 1 VIEW (PORTABLE) Stat Exams 04/04/21 14:36 Taken CBC W DIFF Stat Lab 04/04/21 14:40 Completed CMP Stat Lab 04/04/21 14:40 Completed D-DIMER QUANTITATIVE Stat Lab 04/04/21 14:40 Completed NT PRO BNP Stat Lab 04/04/21 14:40 Completed PROTIME WITH INR Stat Lab 04/04/21 14:40 Completed T4 (Thyroxine) Stat Lab 04/04/21 14:40 Received TROPONIN Q3H Lab 04/04/21 14:40 Completed TROPONIN Q3H Lab 04/04/21 17:45 Ordered TROPONIN Q3H Lab 04/04/21 20:45 Ordered TROPONIN Q3H Lab 04/04/21 23:45 Ordered TROPONIN Q3H Lab 04/05/21 02:45 Ordered TSH [TSH, 3RD Generation] Stat Lab 04/04/21 14:40 Received Medication Summary Discontinued Medications Generic Name Dose Route Start Last Admin Trade Name Freq PRN Reason Stop Dose Admin Aspirin 243 mg 04/04/21 14:35 04/04/21 14:48 Baby Aspirin 81 Mg Chew PO 04/04/21 14:36 243 mg STAT ONE Administration Lorazepam Confirm 04/04/21 14:36 Ativan 2 Mg/1 Ml Vial Administered 04/04/21 14:37 Dose 2 mg .ROUTE .STK-MED ONE Lorazepam 1 mg 04/04/21 14:48 04/04/21 15:07 Ativan 2 Mg/1 Ml Vial IV 04/04/21 14:49 1 mg STAT ONE Administration Morphine Sulfate 2 mg 04/04/21 14:35 Morphine Sulfate 2 Mg Inj IV 04/04/21 14:36 STAT ONE Ondansetron HCl 4 mg 04/04/21 14:35 Zofran 4 Mg/2 Ml Vial IV 04/04/21 14:36 STAT ONE Lab/Rad Data: Laboratory Result Diagrams 04/04/21 14:40 04/04/21 14:40 Laboratory Results 04/04/21 04/04/21 04/04/21 Range/Units 14:40 14:40 14:40 WBC (4.0-10.5) K/mm3 RBC (4.1-5.4) M/mm3 Hgb (12.0-16.0) gm/dl Hct (35-47) % MCV (78-100) fl MCH (26-32) pg MCHC (32-36) g/dl RDW (11.5-14.0) % Plt Count (150-450) K/mm3 MPV (7.5-11.0) fl Gran % (36.0-66.0) % Eos # (Auto) (0-0.5) Absolute Lymphs (auto) (1.0-4.6) Absolute Monos (auto) (0.0-1.3) Lymphocytes % (24.0-44.0) % Monocytes % (0.0-12.0) % Eosinophils % (0.00-5.0) % Basophils % (0.0-0.4) % Absolute Granulocytes (1.4-6.9) Basophils # (0-0.4) PT 11.1 (9.95-12.35) SECONDS INR 0.98 (0.8-3.0) D-Dimer 484 (215-500) ng/mL Sodium 138 (137-145) mmol/L Potassium 4.3 (3.5-5.1) mmol/L Chloride 102 (98-107) mmol/L Carbon Dioxide 22 (22-30) mmol/L Anion Gap 18.6 H (5-15) MEQ/L BUN 13 (7-17) mg/dL Creatinine 1.20 H (0.52-1.04) mg/dL Estimated GFR 49.2 ML/MIN Glucose 108 H (74-106) mg/dL Calcium 10.1 (8.4-10.2) mg/dL Total Bilirubin 0.30 (0.2-1.3) mg/dL AST 70 H (14-36) U/L ALT 78 H (0-35) U/L Alkaline Phosphatase 62 (38-126) U/L Troponin I < 0.012 (0.000-0.034) ng/mL NT-Pro-B Natriuret Pep 112 (0-900) pg/mL Serum Total Protein 7.7 (6.3-8.2) g/dL Albumin 4.9 (3.5-5.0) g/dL 04/04/21 Range/Units 14:40 WBC 7.4 (4.0-10.5) K/mm3 RBC 4.25 (4.1-5.4) M/mm3 Hgb 13.2 (12.0-16.0) gm/dl Hct 40.9 (35-47) % MCV 96.2 (78-100) fl MCH 31.1 (26-32) pg MCHC 32.3 (32-36) g/dl RDW 13.8 (11.5-14.0) % Plt Count 324 (150-450) K/mm3 MPV 9.7 (7.5-11.0) fl Gran % 45.7 (36.0-66.0) % Eos # (Auto) 0.12 (0-0.5) Absolute Lymphs (auto) 3.07 (1.0-4.6) Absolute Monos (auto) 0.77 (0.0-1.3) Lymphocytes % 41.5 (24.0-44.0) % Monocytes % 10.4 (0.0-12.0) % Eosinophils % 1.6 (0.00-5.0) % Basophils % 0.8 (0.0-0.4) % Absolute Granulocytes 3.38 (1.4-6.9) Basophils # 0.06 (0-0.4) PT (9.95-12.35) SECONDS INR (0.8-3.0) D-Dimer (215-500) ng/mL Sodium (137-145) mmol/L Potassium (3.5-5.1) mmol/L Chloride (98-107) mmol/L Carbon Dioxide (22-30) mmol/L Anion Gap (5-15) MEQ/L BUN (7-17) mg/dL Creatinine (0.52-1.04) mg/dL Estimated GFR ML/MIN Glucose (74-106) mg/dL Calcium (8.4-10.2) mg/dL Total Bilirubin (0.2-1.3) mg/dL AST (14-36) U/L ALT (0-35) U/L Alkaline Phosphatase (38-126) U/L Troponin I (0.000-0.034) ng/mL NT-Pro-B Natriuret Pep (0-900) pg/mL Serum Total Protein (6.3-8.2) g/dL Albumin (3.5-5.0) g/dL - Progress Progress: improved, re-examined Air Movement: good Progress Note: 04/04/21 15:42 Patient states that her chest pain is completely resolved. 04/04/21 15:44 Chest x-ray shows no acute cardiopulmonary process. Blood Culture(s) Obtained: No Antibiotics given: No Counseled pt/family regarding: lab results, diagnosis, need for follow-up, rad results - Departure Departure Disposition: Home Clinical Impression: Recurrent chest pain Condition: Stable Critical Care Time: No Referrals: LUBA CALDERON MD [Primary Care Provider] - Additional Instructions: Follow-up with your primary care physician and airconditioning plant operator tomorrow. Call to make a follow-up appointment. Continue all your medications as prescribed.
[2021-04-04] MEDS ORDERED: Ativan 2 MG/1 ML VIAL ONE (14:36)
[2021-04-04 14:48] VITALS: BP 148/98; PULSE 92; O2SAT 99
[2021-04-04] MEDS: BABY ASPIRIN 81 MG CHEW PO ONE (14:48)
[2021-04-04 14:49] LABS: Absolute Neutrophil Ct (ANC) 3.38 (1.4-6.9); BASOPHIL % 0.8 % (0.0-0.4); Basophil (Absolute #) 0.06 (0-0.4); Eosinophil % 1.6 % (0.00-5.0); Eosinophil (Absolute #) 0.12 (0-0.5); Hematocrit 40.9 % (35-47); Hemoglobin 13.2 gm/dl (12.0-16.0); Lymphocyte (Absolute #) 3.07 (1.0-4.6); Lymphocytes % 41.5 % (24.0-44.0); Mean Cell Volume 96.2 fl (78-100); Mean Corpuscular Hemoglobin 31.1 pg (26-32); Mean Corpuscular Hgb Concent. 32.3 g/dl (32-36); Mean Platelet Volume 9.7 fl (7.5-11.0); Monocyte (Absolute #) 0.77 (0.0-1.3); Monocytes % 10.4 % (0.0-12.0); Neutrophil % 45.7 % (36.0-66.0); Platelet Count 324 K/mm3 (150-450); Red Blood Count 4.25 M/mm3 (4.1-5.4); Red Cell Distribution Width 13.8 % (11.5-14.0); White Blood Count 7.4 K/mm3 (4.0-10.5)
[2021-04-04 14:56] LABS: INR 0.98 (0.8-3.0); PROTIME 11.1 SECONDS (9.95-12.35)
[2021-04-04] MEDS: Ativan 2 MG/1 ML VIAL IV ONE (15:07)
[2021-04-04 15:09] LABS: ALBUMIN 4.9 g/dL (3.5-5.0); ANION GAP 18.6 MEQ/L (5-15); BILIRUBIN,TOTAL 0.3 mg/dL (0.2-1.3); Calcium 10.1 mg/dL (8.4-10.2); Creatinine 1 1.2 mg/dL (0.52-1.04); EST GLOMERULAR FILTRATION RATE 49.2 ML/MIN; Potassium 4.3 mmol/L (3.5-5.1); Total Protein 7.7 g/dL (6.3-8.2)
[2021-04-04] MEDS: MORPHINE SULFATE 2 MG INJ IV ONE (15:55)
[2021-04-04] MEDS: Zofran 4 MG/2 ML VIAL IV ONE (15:56)
--- NOTE | 2021-04-04 18:30 | XRAY ---
Indication: Chest pain. Comparison: November 25, 2020. Portable chest remains hyperinflated and clear. Heart not enlarged. Bony thorax intact again with mild osteopenia. Impression: Continued nonacute hyperinflated chest.
== END 2021-04-04 16:14 | disposition home or self-care (01) ==
LOC: ED 14:27
DX: R07.9 Chest pain, unspecified (principal)
CPT/HCPCS: 36000; 36415; 71045; 80053; 83880; 84436; 84443; 84484; 85025; 85379; 85610; 93005; 93041; 94760; 96374; 99284; J2060; A9270-GY

== ENCOUNTER 2021-09-14 06:20 | Emergency (ER) | payer OTHER ==
[2021-09-14 06:31] VITALS: O2SAT 98
--- NOTE | 2021-09-14 07:10 | ERPHSYRPT ---
- History of Present Illness Time Seen by Provider: 09/14/21 07:05 Source: patient Exam Limitations: no limitations Patient Subjective Stated Complaint: I've had this headache x4 days. I was taking Tylenol and it was helping but then just started getting worse. Triage Nursing Assessment: Pt c/o headache down the middle of her head and into her neck x4 days. Tylenol was helping originally but has started getting worse. Pt saw population health coach yesterday and they added another b/p pill. 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 Pt has taken extra blood pressure meds today and still having a horrible headache. Physician History: This is a 56-year-old white female who is a patient of Dr. Pelaez and has a history of migraine headaches, panic disorder and hypertension. She recently saw her neurologist and they put her on Lamictal, she saw her population health coach (Dr. Goodrich) yesterday and they made some changes to her 5 antihypertensive medication regimen and she has had 4 days of worsening migraine headache. This morning it was much worse and she stated since 1:00 this morning she took 3000 mg of Tylenol, extra blood pressure medication and a Xanax at 1:00 this morning. Patient arrives to the emergency department tearful and shaking. Patient denies any new stressors. Timing/Duration: day(s) (4) Quality: aching, throbbing Head Pain Location: global Severity of Pain-Max: moderate Severity of Pain-Current: moderate Recent Head Trauma: occasional headaches Associated Symptoms: denies symptoms Previous symptoms: same symptoms as today, recently seen, recently treated Allergies/Adverse Reactions: No Known Drug Allergies Allergy (Verified 09/14/21 06:42) Home Medications: Metoprolol Succinate 25 mg Xl* [Toprol-Xl 25MG Tablets] 25 mg PO BID 11/12/20 [History] Aspirin 81 gm Chew [Baby Aspirin 81 mg Chew] 81 mg PO DAILY 11/17/20 [Hist ory] Buspirone HCl 10 mg PO DAILY 04/04/21 [History] HydrALAzine HCL 25 MG TAB [Apresoline 25 MG TABLET] 1 tab PO QID 04/04/21 [History] Losartan Potassium [Cozaar] 1 tab PO QID 04/04/21 [History] ALPRAZolam 0.25 MG [xanAX 0.25 MG] 0.25 mg PO BID PRN PRN 09/14/21 [History] Amlodipine Besylate [Norvasc] 25 mg PO DAILY 09/14/21 [History] Clonidine HCl [Clonidine HCl ER] 0.1 mg PO BID 09/14/21 [History] lamoTRIgine [Lamotrigine] 25 mg PO DAILY 09/14/21 [History] Hx Tetanus, Diphtheria Vaccination/Date Given: Yes Hx Influenza Vaccination/Date Given: No Hx Pneumococcal Vaccination/Date Given: No Immunizations Up to Date: Yes Travel Risk - International Travel Have you traveled outside of the country in past 3 weeks: No - Coronavirus Screening Close contact with a COVID-19 positive Pt in past 14-21 Days: No - Vaccine Status Have you recieved a Covid-19 vaccination: Yes 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: [employer] - Vaccination Dates Date of 2cond Vaccination (if applicable): 02/2021 - Review of Systems Constitutional: No Symptoms Eyes: No Symptoms Ears, Nose, & Throat: No Symptoms Respiratory: No Symptoms Cardiac: No Symptoms Abdominal/Gastrointestinal: No Symptoms Genitourinary Symptoms: No Symptoms Musculoskeletal: No Symptoms Skin: No Symptoms Neurological: Headache Psychological: No Symptoms Endocrine: No Symptoms Hematologic/Lymphatic: No Symptoms Immunological/Allergic: No Symptoms All Other Systems: Reviewed and Negative - Past Medical History Pertinent Past Medical History: Yes Neurological History: Migraines ENT History: No Pertinent History Cardiac History: Hypertension, Other Respiratory History: No Pertinent History Endocrine Medical History: Hyperthyroidism, Hypothyroidism Musculoskeletal History: No Pertinent History GI Medical History: Polyps History: No Pertinent History Psycho-Social History: Anxiety Female Reproductive Disorders: No Pertinent History Other Medical History: MITRAL VALVE REGURGATION, TACHYCARDIA, atrial regurgitation, sensory spells, covid - Past Surgical History Past Surgical History: Yes Neuro Surgical History: No Pertinent History Cardiac: No Pertinent History Respiratory: No Pertinent History Gastrointestinal: No Pertinent History Genitourinary: Other Musculoskeletal: Other Female Surgical History: No Pertinent History Other Surgical History: CONSTRUCTION staple removed from heel; uterine polyp removal; breast implant removal - Social History Smoking Status: Never smoker Exposure to second hand smoke: No Drug Use: none Patient Lives Alone: No - Female History Hx Now: No - Nursing Vital Signs Nursing Vital Signs: Initial Vital Signs Temperature 98.5 F 09/14/21 06:29 Pulse Rate 86 09/14/21 06:29 Respiratory Rate 20 09/14/21 06:29 Blood Pressure 159/110 09/14/21 06:29 O2 Sat by Pulse Oximetry 98 09/14/21 06:29 Pain Scale Pain Intensity 6 - Physical Exam General Appearance: no apparent distress, alert, anxiety Eye Exam: PERRL/EOMI, eyes nml inspection Ears, Nose, Throat Exam: normal ENT inspection, moist mucous membranes Neck Exam: normal inspection, non-tender, supple, full range of motion Respiratory Exam: normal breath sounds, lungs clear, airway intact, No chest tenderness, No respiratory distress Cardiovascular Exam: regular rate/rhythm, normal heart sounds, normal peripheral pulses Gastrointestinal/Abdominal Exam: soft, normal bowel sounds, No tenderness Back Exam: normal inspection, normal range of motion, No CVA tenderness, No vertebral tenderness Extremity Exam: normal inspection, normal range of motion, pelvis stable Mental Status Exam: alert, oriented x 3, cooperative raftsman Exam: normal hearing, normal speech, PERRL Coordination/Gait Exam: normal finger to nose, normal gait, normal cerebellar function Motor/Sensory Exam: no motor deficit, no sensory deficit, no pronator drift Skin Exam: normal color, warm, dry Lymphatic Exam: No adenopathy SpO2 Interpretation: normal SpO2: 98 O2 Delivery: Room Air - Course Nursing assessment & vital signs reviewed: Yes Ordered Tests: Active Orders 24 hr Category Date Time Status Clean Catch Urine Specimen STAT Care 09/14/21 07:30 Active HEAD WITHOUT CONTRAST [CT] Stat Exams 09/14/21 07:14 Completed BMP Stat Lab 09/14/21 07:40 Completed CBC Stat Lab 09/14/21 07:40 Completed T4 (Thyroxine) Stat Lab 09/14/21 07:40 Completed TSH [TSH, 3RD Generation] Stat Lab 09/14/21 07:40 Received UA W/RFX UR CULTURE Stat Lab 09/14/21 08:32 Ordered Urine Triage Profile Stat Lab 09/14/21 08:37 Ordered Medication Summary Discontinued Medications Generic Name Dose Route Start Last Admin Trade Name Freq PRN Reason Stop Dose Admin Hydromorphone HCl 1 mg 09/14/21 08:22 09/14/21 08:43 Hydromorphone 1 Mg/1ml Inj 1 Mg/Ml Syringe IM 09/14/21 08:23 1 mg STAT ONE Administration Hydromorphone HCl Confirm 09/14/21 08:42 Hydromorphone 1 Mg/1ml Inj 1 Mg/Ml Syringe Administered 09/14/21 08:43 Dose 1 mg .ROUTE .STK-MED ONE Lorazepam 1 mg 09/14/21 08:23 09/14/21 08:43 Lorazepam 2 Mg/1 Ml 2 Mg Vial IM 09/14/21 08:24 1 mg STAT ONE Administration Lorazepam Confirm 09/14/21 08:41 Lorazepam 2 Mg/1 Ml 2 Mg Vial Administered 09/14/21 08:42 Dose 2 mg .ROUTE .STK-MED ONE Ondansetron HCl 4 mg 09/14/21 08:23 09/14/21 08:43 Zofran 4 Mg/Udtablet Orally Disintegrating PO 09/14/21 08:24 4 mg STAT ONE Administration Ondansetron HCl Confirm 09/14/21 08:41 Zofran 4 Mg/Udtablet Orally Disintegrating Administered 09/14/21 08:42 Dose 4 mg .ROUTE .STK-MED ONE Lab/Rad Data: Laboratory Result Diagrams 09/14/21 07:40 09/14/21 07:40 Laboratory Results 09/14/21 09/14/21 09/14/21 Range/Units 07:40 07:40 07:40 WBC 5.1 (4.0-10.5) K/mm3 RBC 4.11 (4.1-5.4) M/mm3 Hgb 13.2 (12.0-16.0) gm/dl Hct 40.5 (35-47) % MCV 98.5 (78-100) fl MCH 32.1 H (26-32) pg MCHC 32.6 (32-36) g/dl RDW 13.0 (11.5-14.0) % Plt Count 211 (150-450) K/mm3 MPV 10.1 (7.5-11.0) fl Sodium 140 (137-145) mmol/L Potassium 4.1 (3.5-5.1) mmol/L Chloride 107 (98-107) mmol/L Carbon Dioxide 21 L (22-30) mmol/L Anion Gap 15.9 H (5-15) MEQ/L BUN 10 (7-17) mg/dL Creatinine 0.92 (0.52-1.04) mg/dL Estimated GFR > 60.0 ML/MIN Glucose 88 (74-106) mg/dL Calcium 10.2 (8.4-10.2) mg/dL Thyroxine (T4) 9.54 (5.53-10.96) ug/dL - Progress Progress: improved, re-examined Air Movement: good Progress Note: 09/14/21 08:51 CAT scan of the head without contrast shows new bilateral paranasal sinus disease. No other acute intracranial findings. Blood Culture(s) Obtained: No Antibiotics given: No Counseled pt/family regarding: lab results, diagnosis, need for follow-up, rad results - Departure Departure Disposition: Home Clinical Impression: Headache, Sinusitis Condition: Stable Critical Care Time: No Referrals: LELO PELAEZ MD [Primary Care Provider] - Additional Instructions: Take the medication as prescribed. Follow-up with your primary care physician and neurologist for further management. Prescriptions: Azithromycin 250 mg [Zithromax 250 MG TABLET] 250 mg PO ZPACK #6 tablet
[2021-09-14 07:46] LABS: Hematocrit 40.5 % (35-47); Hemoglobin 13.2 gm/dl (12.0-16.0); Mean Cell Volume 98.5 fl (78-100); Mean Corpuscular Hemoglobin 32.1 pg (26-32); Mean Corpuscular Hgb Concent. 32.6 g/dl (32-36); Mean Platelet Volume 10.1 fl (7.5-11.0); Platelet Count 211 K/mm3 (150-450); Red Blood Count 4.11 M/mm3 (4.1-5.4); White Blood Count 5.1 K/mm3 (4.0-10.5)
[2021-09-14 08:10] LABS: ANION GAP 15.9 MEQ/L (5-15); BLOOD UREA NITROGEN 10 mg/dL (7-17); CHLORIDE 107 mmol/L (98-107); Calcium 10.2 mg/dL (8.4-10.2); Carbon Dioxide 21 mmol/L (22-30); Creatinine 1 0.92 mg/dL (0.52-1.04); EST GLOMERULAR FILTRATION RATE > 60.0 ML/MIN; Glucose 88 mg/dL (74-106); Potassium 4.1 mmol/L (3.5-5.1); SODIUM 140 mmol/L (137-145)
[2021-09-14] MEDS ORDERED: Hydromorphone 1 mg/ml Injection IM ONE (08:22)
[2021-09-14] MEDS ORDERED: ZOFRAN ODT 4 MG PO ONE (08:23)
[2021-09-14] MEDS ORDERED: Ativan 2 MG/1 ML VIAL IM ONE (08:23)
[2021-09-14 08:31] LABS: Appearance CLEAR (CLEAR); Bilirubin NEGATIVE (NEGATIVE); Blood NEGATIVE Ery/ul (0-5); Glucose NEGATIVE (NEGATIVE); Ketones NEGATIVE (NEGATIVE); Leukocyte Esterase NEGATIVE (NEGATIVE); Mucus SLIGHT /HPF (NEGATIVE); Nitrite NEGATIVE (NEGATIVE); Protein,Urine Dip NEGATIVE (Negative); Specific Gravity 1.011 (1.005-1.025); Urobilinogen NEGATIVE mg/dL (0-1)
--- NOTE | 2021-09-14 08:38 | XRAY ---
Indication: Severe headache. Multiple contiguous axial images obtained through the head without contrast. Comparison: December 04, 2020. Normal appearing brain parenchyma, ventricles, and bony calvarium for patient's age. New mild mucosal thickening both ethmoid sinuses and both nasal passages. Remaining paranasal sinuses and mastoid air cells are clear. Impression: New paranasal sinus disease. Remaining CT head without contrast exam is negative.
[2021-09-14] MEDS ORDERED: ZOFRAN ODT 4 MG ONE (08:41)
[2021-09-14] MEDS ORDERED: Ativan 2 MG/1 ML VIAL ONE (08:41)
[2021-09-14] MEDS ORDERED: Hydromorphone 1 mg/ml Injection ONE (08:42)
[2021-09-14 08:49] LABS: Amphetamine,Urine NEGATIVE (NEGATIVE); Barbiturate,Urine NEGATIVE (NEGATIVE); Benzodiazepine,Urine POSITIVE (NEGATIVE); Cocaine,Urine NEGATIVE (NEGATIVE); Methadone,Urine NEGATIVE (NEGATIVE); Opiate,Urine NEGATIVE (NEGATIVE); PCP,Urine NEGATIVE (NEGATIVE); THC,Urine NEGATIVE (NEGATIVE)
[2021-09-14 09:08] VITALS: BP 132/75; PULSE 66
== END 2021-09-14 09:30 | disposition home or self-care (01) ==
LOC: ED 06:20
DX: R51.9 Headache, unspecified (principal); J32.9 Chronic sinusitis, unspecified
CPT/HCPCS: 36415; 70450; 80048; 80307; 81001; 84436; 84443; 85027; 96372; 99284; J1170; J2060; Q0162

== ENCOUNTER 2021-09-15 05:25 | Emergency (ER) | payer OTHER ==
--- NOTE | 2021-09-15 05:59 | ERPHSYRPT ---
- History of Present Illness Source: patient Exam Limitations: no limitations Patient Subjective Stated Complaint: Patient states " My B/P is so high and I take my medication daily and on time and it shouldn't be this high." Triage Nursing Assessment: Patient arrived to ED and ambulated back to room without difficulty. Patient A/O times 4. Patient able to follow instructions without difficulty. Patient appears anxious and states that she has also having a dull pain under left rib. Patient was just in ED less than 24 hours ago R/T elevated B/P. Patient was advised to talk with her ground surveillance systems operator. Patient states she did talk to the Cardiologists nurse and they explained to her she needed to give medication time to work and they did not need to see her at this time. B/P upon arrival WNL. Patient denies chest pain or SOB. Respiratory regular and easy and non-labored. No S/S of respiratory distress noted. Cap refill < 3 seconds. Skin color WNL. Timing/Duration: today Severity: mild Associated Symptoms: chest pain, No shortness of breath, No cough, No headaches Hx Tetanus, Diphtheria Vaccination/Date Given: Yes Hx Influenza Vaccination/Date Given: No Hx Pneumococcal Vaccination/Date Given: No Immunizations Up to Date: Yes <YADI PERSAUD - Last Filed: 09/15/21 06:47> <IRMA BARNHART - Last Filed: 09/15/21 10:03> - History of Present Illness Time Seen by Provider: 09/15/21 05:45 Physician History: This is a 56-year-old white female patient of Dr. Teixeira who also sees a ground surveillance systems operator, psychologist and neurologist because of chronic medical issues related to high blood pressure, headaches and anxiety. A week ago, patient was seen by a neurologist and placed on Lamictal. 2 days ago, patient was placed on Norvasc to help in controlling her blood pressure. She has a total of 4 differe nt medications to help control her blood pressure. Patient has extreme panic disorder/anxiety disorder. Less than 24 hours ago patient underwent a CT scan of her head as well as blood work. There were no significant, acute, emergent abnormalities other than bilateral paranasal sinusitis. Patient has an appointment scheduled for tomorrow to be evaluated by her ground surveillance systems operator. This morning patient noticed some left anterior chest pain. She did not complain of this pain 2 days ago at her ground surveillance systems operator office and she did not complain of this type of pain yesterday when evaluated here. She did not suffer any type of trauma to the area. Patient's blood pressure on arrival to the emergency department is 150/90. (YADI PERSAUD) Allergies/Adverse Reactions: No Known Drug Allergies Allergy (Verified 09/15/21 05:36) Home Medications: Metoprolol Succinate 25 mg Xl* [Toprol-Xl 25MG Tablets] 25 mg PO BID 11/12/20 [History] Aspirin 81 gm Chew [Baby Aspirin 81 mg Chew] 81 mg PO DAILY 11/17/20 [History] Buspirone HCl 10 mg PO DAILY 04/04/21 [History] HydrALAzine HCL 25 MG TAB [Apresoline 25 MG TABLET] 1 tab PO QID 04/04/21 [History] Losartan Potassium [Cozaar] 1 tab PO QID 04/04/21 [History] ALPRAZolam 0.25 MG [xanAX 0.25 MG] 0.25 mg PO BID PRN PRN 09/14/21 [History] Amlodipine Besylate [Norvasc] 2.5 mg PO DAILY 09/14/21 [History] Clonidine HCl [Clonidine HCl ER] 0.1 mg PO BID 09/14/21 [History] lamoTRIgine [Lamotrigine] 25 mg PO DAILY 09/14/21 [History] Travel Risk - International Travel Have you traveled outside of the country in past 3 weeks: No (N) If Yes, where;: N - Coronavirus Screening Are you exhibiting any of the following symptoms?: No Close contact with a COVID-19 positive Pt in past 14-21 Days: No - Vaccine Status Have you recieved a Covid-19 vaccination: Yes 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[employer] - Vaccination Dates Date of 2cond Vaccination (if applicable): 02/2021 <YADI PERSAUD - Last Filed: 09/15/21 06:47> - Review of Systems Constitutional: No Symptoms Eyes: No Symptoms Ears, Nose, & Throat: No Symptoms Respiratory: No Symptoms Cardiac: Chest Pain Abdominal/Gastrointestinal: No Symptoms Genitourinary Symptoms: No Symptoms Musculoskeletal: No Symptoms Skin: No Symptoms Neurological: No Symptoms Psychological: No Symptoms Endocrine: No Symptoms Hematologic/Lymphatic: No Symptoms Immunological/Allergic: No Symptoms All Other Systems: Reviewed and Negative <YADI PERSAUD - Last Filed: 09/15/21 06:47> - Past Medical History Pertinent Past Medical History: Yes Neurological History: Migraines ENT History: No Pertinent History Cardiac History: Hypertension, Other Respiratory History: No Pertinent History Endocrine Medical History: Hyperthyroidism, Hypothyroidism Musculoskeletal History: No Pertinent History GI Medical History: Polyps History: No Pertinent History Psycho-Social History: Anxiety Female Reproductive Disorders: No Pertinent History Other Medical History: MITRAL VALVE REGURGATION, TACHYCARDIA, atrial regurgitation, sensory spells, covid - Past Surgical History Past Surgical History: Yes Neuro Surgical History: No Pertinent History Cardiac: No Pertinent History Respiratory: No Pertinent History Gastrointestinal: No Pertinent History Genitourinary: Other Musculoskeletal: Other Female Surgical History: No Pertinent History Other Surgical History: CONSTRUCTION staple removed from heel; uterine polyp removal; breast implant removal - Social History Smoking Status: Never smoker Exposure to second hand smoke: No Drug Use: none Patient Lives Alone: No - Female History Hx Now: No <YADI PERSAUD - Last Filed: 09/15/21 06:47> - Physical Exam General Appearance: no apparent distress, alert, anxiety, thin Eye Exam: PERRL/EOMI, eyes nml inspection Ears, Nose, Throat Exam: normal ENT inspection, moist mucous membranes Neck Exam: normal inspection, non-tender, supple, full range of motion Respiratory Exam: normal breath sounds, chest tenderness, lungs clear, airway intact, No respiratory distress Cardiovascular Exam: regular rate/rhythm, normal heart sounds, normal peripheral pulses Gastrointestinal/Abdomen Exam: soft, normal bowel sounds, No tenderness Pelvic Exam: not done Rectal Exam: not done Back Exam: normal inspection, normal range of motion, No CVA tenderness, No vertebral tenderness Extremity Exam: normal inspection, normal range of motion, pelvis stable Neurologic Exam: alert, oriented x 3, cooperative, ems driver II-XII nml as tested, normal mood/affect, nml cerebellar function, nml station & gait, sensation nml Skin Exam: normal color, warm, dry Lymphatic Exam: No adenopathy SpO2 Interpretation: normal SpO2: 98 O2 Delivery: Room Air <YADI PERSAUD - Last Filed: 09/15/21 06:47> - Nursing Vital Signs Nursing Vital Signs: Initial Vital Signs Temperature 97.5 F 09/15/21 05:26 Pulse Rate 72 09/15/21 05:26 Respiratory Rate 18 09/15/21 05:26 Blood Pressure 159/94 09/15/21 05:26 O2 Sat by Pulse Oximetry 98 09/15/21 05:26 Pain Scale Pain Intensity 3 - Course Nursing assessment & vital signs reviewed: Yes EKG Interpreted by Me: RATE (63), Sinus Rhythm, NORMAL AXIS, NORMAL INTERVALS, NORMAL QRS, NORMAL ST-T, Non-specific ST Changes, Other (There are no acute ischemic changes on today's EKG. There is no significant change from comparison EKG dated 04/04/2021) <YADI PERSAUD - Last Filed: 09/15/21 06:47> - Radiology Exams Chest X-ray Interpretation: Teleradiologist Report (Clear lung arenas. Incidental tiny right upper lobe calcified granuloma. Heart not enlarged. Bony thorax intact. No new acute findings.) - CT Exams Chest CT Interpretation: Tele-radiologist Report (No pulmonary embolus. Tiny right upper and left lower lobe calcified granuloma. Hepatic cyst. Possible hemangioma. No new acute cardiopulmonary abnormalities. Old granulomatous disease) <IRMA BARNHART - Last Filed: 09/15/21 10:03> Ordered Tests: Active Orders 24 hr Category Date Time Status Corn Chip Maker STAT Care 09/15/21 05:53 Active EKG-ER Only STAT Care 09/15/21 05:53 Active Pulse Oximetry (ED) STAT Care 09/15/21 05:53 Active CHEST 1 VIEW (PORTABLE) Stat Exams 09/15/21 06:08 Completed CHEST WITH CONTRAST [CT] Stat Exams 09/15/21 07:39 Completed D-DIMER QUANTITATIVE Stat Lab 09/15/21 06:55 Completed TROPONIN Q3H Lab 09/15/21 06:55 Completed TROPONIN Q3H Lab 09/15/21 09:10 Completed TROPONIN Q3H Lab 09/15/21 12:00 Ordered TROPONIN Q3H Lab 09/15/21 15:00 Ordered TROPONIN Q3H Lab 09/15/21 18:00 Ordered Medication Summary Discontinued Medications Generic Name Dose Route Start Last Admin Trade Name Freq PRN Reason Stop Dose Admin Ondansetron HCl 4 mg 09/15/21 08:00 09/15/21 08:08 Ondansetron Hcl 4 Mg/2 Ml Vial IV 09/15/21 08:01 4 mg STAT ONE Administration Ondansetron HCl Confirm 09/15/21 08:03 Ondansetron Hcl 4 Mg/2 Ml Vial Administered 09/15/21 08:04 Dose 4 mg .ROUTE .STK-MED ONE Lab/Rad Data: Laboratory Results 09/15/21 09/15/21 09/15/21 Range/Units 09:10 06:55 06:55 D-Dimer 617 H* (215-500) ng/mL Troponin I < 0.012 < 0.012 (0.000-0.034) ng/mL - Progress Progress: pain not gone completely, re-examined Counseled pt/family regarding: lab results, diagnosis, need for follow-up, rad results <YADI PERSAUD - Last Filed: 09/15/21 06:47> <IRMA BARNHART - Last Filed: 09/15/21 10:03> - Progress Progress Note: 09/15/21 06:15 Chest x-ray shows no acute cardiopulmonary process. Medical decision making: This patient was here in the emergency department less than 24 hours ago. She had blood work-up that did not show any acute process. Patient is very anxious and this is likely the cause of her symptoms. I will perform an EKG, chest x-ray and have troponin and D-dimer drawn today. Those labs were not drawn yesterday because she was not complaining of chest pain until this morning if the above work-up results are negative she will be discharged home to follow-up with her ground surveillance systems operator tomorrow, 09/16/2021. 09/15/21 06:48 Transfer of emergency department care to Dr. Irma Barnhart at shift change. I reviewed the patient history, results of the EKG and chest x-ray. He is to follow-up on the lab results and make the final disposition. (YADI PERSAUD) Patient endorsed to Dr. Barnhart at approximately [address] Barnhart advised to follow- up on pending D-dimer, troponin and advised to disposition if these values are normal. D-dimer was elevated. D-dimer was elevated above age adjustment. CTA chest was ordered. CTA chest negative for PE. Incidental lung granuloma. There was incidental liver cyst versus hemangioma. No acute cardiopulmonary process observed. Chest x-ray was nonremarkable other than a calcified lung granuloma. Initial troponin negative. Second troponin pending. Patient reassessed. She is resting comfortably. Patient has no complaints at this time. Vitals are stable. Heart rate 68. Blood pressure 133/77. Oxygen saturation 98% on room air. Patient will be discharged home pending negative troponin #2. Patient voices no other complaints or concerns at this time. 09/15/21 09:08 heart score: 2 history: slightly suspicious: 0 Ekg: Normal: 0 Age: 56, 1 risk factors: HTN: 1 Troponin x 2 negative: 0 09/15/21 09:51 Heart score is 2. Patient is relatively low risk for MACE. Results and plan of care discussed with patient. She agrees to follow-up with her primary care doctor within 48 hours for reevaluation. Portions of this note were created with voice recognition technology. There may be grammatical, spelling, punctuation or sound alike errors (IRMA BARNHART) - Departure Departure Disposition: Home Critical Care Time: No <YADI PERSAUD - Last Filed: 09/15/21 06:47> - Departure Critical Care Time: No <IRMA BARNHART - Last Filed: 09/15/21 10:03> - Departure Clinical Impression: Non-cardiac chest pain, Hypertension, Anxiety about health, Lung granuloma, Hepatic cyst, Hepatic hemangioma Condition: Stable Referrals: LELO TEIXEIRA MD [Primary Care Provider] - Follow up/PCP as directed Additional Instructions: Take your medications as prescribed. Follow-up with your ground surveillance systems operator tomorrow, 09/16/2021, at your scheduled appointment time.
[2021-09-15] MEDS ORDERED: Zofran 4 MG/2 ML VIAL IV ONE (08:00)
[2021-09-15] MEDS ORDERED: Zofran 4 MG/2 ML VIAL ONE (08:03)
--- NOTE | 2021-09-15 08:40 | XRAY ---
Indication: Left chest pain. Comparison: April 04, 2021. Portable chest remains hyperinflated and clear with again incidental tiny right upper lobe calcified granuloma. Heart not enlarged. Bony thorax intact. No new/acute findings.
--- NOTE | 2021-09-15 08:44 | XRAY ---
Indication: Left chest pain. Multiple contiguous axial images obtained through the chest using 80 cc Isovue 370 contrast and PE protocol. Comparison: September 11, 2019. There is good opacification of the pulmonary arteries to include the lobar and segmental branches. No pulmonary embolus. Heart not enlarged. Aorta is normal in course and caliber. No pathologic mediastinal/hilar lymphadenopathy. Lungs again demonstrates a minimal left base subsegmental atelectasis/scarring and tiny right upper/left lower lobe calcified granulomas. No suspicious pulmonary mass, infiltrate, or effusion. Bony thorax intact. Bilateral breast implants have been removed in the interim. Limited upper abdomen demonstrates stable hepatic cyst versus hemangioma. Impression: 1. Continued negative pulmonary embolus. No new or acute cardiopulmonary abnormalities. 2. Again incidental minimal hepatic cyst/hemangioma and old granulomatous disease.
[2021-09-15 10:45] VITALS: BP 128/73; PULSE 68; O2SAT 97
== END 2021-09-15 10:53 | disposition home or self-care (01) ==
LOC: ED 05:25
DX: I10 Essential (primary) hypertension (principal); F41.9 Anxiety disorder, unspecified; J84.10 Pulmonary fibrosis, unspecified; Q44.6 Cystic disease of liver; D18.09 Hemangioma of other sites
CPT/HCPCS: 36000; 36415; 71045; 71260; 84484; 85379; 93005; 93041; 94760; 96374; 99284; J2405

== ENCOUNTER 2022-12-14 11:39 | Day surgery (SDC) | payer OTHER ==
[2022-12-14] MEDS ORDERED: Depo-Medrol 40 MG/ML IM ONE (11:40)
[2022-12-14] MEDS ORDERED: Sodium Chloride 0.9(Preservative Free) 10 ML IJ ONE (11:40)
[2022-12-14] MEDS ORDERED: DIPRIVAN 200 MG/20 ML IV ONE (13:17)
[2022-12-14] MEDS ORDERED: Lactated Ringers 1,000 ML IV ONE (14:04)
--- NOTE | 2022-12-14 14:21 | XRAY ---
25 seconds of fluoroscopy was used in surgery for a left L4-S1 transforaminal GAVIN.
--- NOTE | 2022-12-14 14:23 | XRAY ---
Indication: Left L4-S1 transforaminal GAVIN. Intraoperative fluoroscopy provided for 25 seconds. 6 digital spot images submitted for interpretation demonstrates posterior needle tips projecting over the expected left L4 and L5 nerve roots. Small amount of contrast injected for needle tip placement. Correlate with intraoperative findings/report.
== END 2022-12-14 13:45 | disposition home or self-care (01) ==
LOC: SDC-PAIN 11:39
PROVIDERS: ATTEND Psychiatry & Neurology Pain Medicine
DX: M54.16 Radiculopathy, lumbar region (principal); Z79.899 Other long term (current) drug therapy
CPT/HCPCS: 64483; 64484; 72100; 77003; J1030; J2704; Q9966

== ENCOUNTER 2024-10-17 08:34 | Observation (INO) | payer OTHER ==
[2024-10-17] MEDS ORDERED: NITRO-BID 2% UD PACKETS ONE (09:25)
[2024-10-17] MEDS: NITRO-BID 2% UD PACKETS TOP ONE (09:29)
[2024-10-17 09:30] LABS: Absolute Neutrophil Ct (ANC) 2.78 x10^3/uL (1.56-6.13); BASOPHIL % 1.2 % (0.1-1.2); Basophil (Absolute #) 0.06 x10^3/uL (0.01-0.08); Eosinophil % 1.8 % (0.7-5.8); Eosinophil (Absolute #) 0.09 x10^3/uL (0.04-0.36); Hematocrit 36.1 % (34.1-44.9); Hemoglobin 11.8 g/dL (11.2-15.7); IMMATURE GRAN # 0.02 x10^3u/L (0.001-0.031); IMMATURE GRAN % 0.4 % (0.001-0.429); Lymphocyte (Absolute #) 1.48 x10^3/uL (1.18-3.74); Lymphocytes % 30.1 % (19.3-51.7); Mean Cell Volume 94.3 fL (79.4-94.8); Mean Corpuscular Hemoglobin 30.8 pg (25.6-32.2); Mean Corpuscular Hgb Concent. 32.7 g/dL (32.2-35.5); Mean Platelet Volume 10.4 fL (9.4-12.3); Monocyte (Absolute #) 0.48 x10^3/uL (0.24-0.86); Monocytes % 9.8 % (4.7-12.5); Neutrophil % 56.7 % (34.0-71.1); Platelet Count 199 x10^3/uL (182-369); Red Blood Count 3.83 x10^6/uL (3.93-5.22); Red Cell Distribution Width 12.7 % (11.7-14.4); White Blood Count 4.9 x10^3/uL (3.98-10.04)
[2024-10-17 09:48] LABS: ALBUMIN 4.3 g/dL (3.5-5.0); ANION GAP 11.3 MEQ/L (5-15); BILIRUBIN,TOTAL 0.4 mg/dL (0.2-1.3); Calcium 10.2 mg/dL (8.4-10.2); Creatinine 1 1.16 mg/dL (0.52-1.04); EST GLOMERULAR FILTRATION RATE 53.6 ML/MIN; Potassium 4.1 mmol/L (3.5-5.1); Total Protein 7.1 g/dL (6.3-8.2)
--- NOTE | 2024-10-17 09:59 | XRAY ---
Indication: Chest pain. Comparison: September 15, 2021 Portable chest again hyperinflated with new minimal left base infiltrate versus atelectasis. Remaining heart and lungs unremarkable. Bony thorax intact.
[2024-10-17 11:00] LABS: Appearance Clear (Clear); Bacteria None Seen /HPF (None Seen); Bilirubin Negative (Negative); Blood Negative (Negative); Epithelial Cells None Seen /HPF (None Seen); Glucose, Urine Negative (Negative); Hyaline Casts NONE SEEN /LPF (0-2); Ketones Negative (Negative); Leukocyte Esterase Negative (Negative); Nitrite Negative (Negative); Ph 6.5 (4.6-8.0); Protein,Urine Dip Negative (Negative); RBC 0-2 /HPF (0-5); Specific Gravity <=1.005 (1.005-1.030); Urobilinogen 0.2 mg/dL (0.2); WBC 0-2 /HPF (0-5)
[2024-10-17 11:12] LABS: Amphetamine,Urine NEGATIVE (NEGATIVE); Barbiturate,Urine NEGATIVE (NEGATIVE); Benzodiazepine,Urine NEGATIVE (NEGATIVE); Cocaine,Urine NEGATIVE (NEGATIVE); Methadone,Urine NEGATIVE (NEGATIVE); Opiate,Urine NEGATIVE (NEGATIVE); PCP,Urine NEGATIVE (NEGATIVE); THC,Urine NEGATIVE (NEGATIVE)
--- NOTE | 2024-10-17 11:59 | ERPHSYRPT ---
- History of Present Illness Time Seen by Provider: 10/17/24 09:29 Historian: patient Exam Limitations: no limitations Patient Subjective Stated Complaint: C/O chest pain with heart palpitations that started last night at bedtime. Symptoms are intermittent. No nausea/vomiting. Triage Nursing Assessment: Patient ambulated back to ER without difficulties. She is alert and oriented. No SOB. Patient keeps clearing her throat during the assessment; she states this is not new or unsual for her to do this. Skin tone normal. No edema. Physician History: 59-year-old female with history of hypertension, hyperlipidemia, anxiety presented in the ER with complaint of left-sided chest pain off and on since yesterday. Patient reports she woke up in the middle of the night with pain in the left side, dull aching mild, no significant aggravating or relieving factors. Denies associated shortness of breath but does report palpitations off and on. No cough fever or chills reported. Denies any history of coronary artery disease. Has taken 650 of aspirin earlier today because he was also having mild headache. Nitro Today/Relief: no nitro taken today Aspirin Treatment Today: provided at home Allergies/Adverse Reactions: No Known Drug Allergies Allergy (Verified 10/17/24 08:39) Home Medications: Metoprolol Succinate 25 mg Xl* [Toprol-Xl 25MG Tablets] 25 mg PO TID 11/12/20 [History] Aspirin 81 gm Chew [Baby Aspirin 81 mg Chew] 81 mg PO DAILY 11/17/20 [History] Buspirone HCl 10 mg PO DAILY 04/04/21 [History] HydrALAzine HCL 25 MG TAB [Apresoline 25 MG TABLET] 1 tab PO QID 04/04/21 [History] Losartan Potassium [Cozaar] 1 tab PO QID 04/04/21 [History] ALPRAZolam 0.25 MG [xanAX 0.25 MG] 0.25 mg PO BID PRN PRN 09/14/21 [History] cloNIDine HCL [Clonidine HCl ER] 0.2 mg PO BID 09/14/21 [History] lamoTRIgine [Lamotrigine] 150 mg PO BID 09/14/21 [History] Galcanezumab-Gnlm [Emgality Pen] 120 mg SQ UD 10/17/24 [History] Ospemifene [Osphena] 60 mg PO DAILY 10/17/24 [History] Rimegepant Sulfate [Nurtec Odt] 75 mg SL DAILY PRN 10/17/24 [History] Tizanidine HCl 4 mg [Zanaflex 4 MG] 4 mg PO BID 10/17/24 [History] Hx Tetanus, Diphtheria Vaccination/Date Given: Yes Hx Influenza Vaccination/Date Given: No Hx Pneumococcal Vaccination/Date Given: No Immunizations Up to Date: Yes Travel Risk - International Travel Have you traveled outside of the country in past 3 weeks: No - Emerging Infectious Disease Are you exhibiting symptoms associated with any current EIDs: No - Review of Systems Constitutional: No Symptoms Eyes: No Symptoms Ears, Nose, & Throat: No Symptoms Respiratory: No Symptoms Cardiac: Chest Pain Abdominal/Gastrointestinal: No Symptoms Genitourinary Symptoms: No Symptoms Musculoskeletal: No Symptoms Skin: No Symptoms Neurological: No Symptoms Endocrine: No Symptoms Hematologic/Lymphatic: No Symptoms - Past Medical History Pertinent Past Medical History: Yes Neurological History: Migraines, Other ENT History: No Pertinent History Cardiac History: Hypertension Respiratory History: No Pertinent History Endocrine Medical History: Hyperthyroidism, Hypothyroidism Musculoskeletal History: Other GI Medical History: Polyps History: No Pertinent History Psycho-Social History: Anxiety Female Reproductive Disorders: No Pertinent History Other Medical History: SENSORY SEIZURES, TACHYCARDIA, Pituitary growth, Forms Analysis Manager: Dr. Goodrich - Past Surgical History Past Surgical History: Yes Neuro Surgical History: No Pertinent History Cardiac: No Pertinent History Respiratory: No Pertinent History Gastrointestinal: No Pertinent History Genitourinary: Other Musculoskeletal: Other Female Surgical History: No Pertinent History Other Surgical History: CONSTRUCTION staple removed from heel; uterine polyp removal; breast implant removal - Social History Smoking Status: Never smoker Exposure to second hand smoke: No Drug Use: none Patient Lives Alone: No - Social Determinants of Health Will the patient participate in the screening: Yes Do you worry about a steady place to live?: No Do you have any problems with any of the following?: No known problems In the past 12 months,have you had to go without utilities?: No Transportation Issues: No Has anyone in your support network made you feel unsafe?: No Have you or anyone in your house had to go without enough: No - Nursing Vital Signs Nursing Vital Signs: Initial Vital Signs Pulse Rate 60 12/05/24 08:37 Respiratory Rate 17 10/17/24 08:37 Blood Pressure 152/89 10/17/24 08:37 O2 Sat by Pulse Oximetry 99 10/17/24 08:37 Pain Scale Pain Intensity 4 - Physical Exam General Appearance: no apparent distress Eye Exam: PERRL/EOMI Ears, Nose, Throat Exam: normal ENT inspection Neck Exam: normal inspection, non-tender, supple, full range of motion Respiratory Exam: normal breath sounds, lungs clear Cardiovascular Exam: regular rate/rhythm, normal heart sounds Gastrointestinal/Abdomen Exam: soft, normal bowel sounds, No tenderness Back Exam: normal inspection Extremity Exam: normal inspection, normal range of motion Neurologic Exam: alert, oriented x 3, cooperative Skin Exam: normal color SpO2 Interpretation: normal SpO2: 98 O2 Delivery: Room Air - Course EKG Interpreted by Me: RATE ([id number]), Sinus Rhythm, NORMAL AXIS, NORMAL INTERVALS, NORMAL QRS Ordered Tests: Active Orders 24 hr Category Date Time Status Town Manager STAT Care 10/17/24 09:05 Active EKG-ER Only STAT Care 10/17/24 09:04 Active IV Insertion STAT Care 10/17/24 09:04 Active Pulse Oximetry (ED) STAT Care 10/17/24 09:04 Active CHEST 1 VIEW (PORTABLE) Stat Exams 10/17/24 09:05 Completed CBC W DIFF Stat Lab 10/17/24 09:29 Completed CMP Stat Lab 10/17/24 09:29 Completed D-DIMER QUANTITATIVE Stat Lab 10/17/24 09:29 Completed NT PRO BNPII Stat Lab 10/17/24 09:29 Completed TROPONIN Q4H Lab 10/17/24 09:29 Completed TROPONIN Q4H Lab 10/17/24 13:15 Ordered TROPONIN Q4H Lab 10/17/24 17:15 Ordered UA W/RFX UR CULTURE Stat Lab 10/17/24 10:49 Completed Urine Triage Profile Stat Lab 10/17/24 10:49 Completed Transfer Order Routine Transfer 10/17/24 Ordered Medication Summary Discontinued Medications Generic Name Dose Route Start Last Admin Trade Name Freq PRN Reason Stop Dose Admin Nitroglycerin Confirm 10/17/24 09:25 Nitroglycerin 1 Gm Packet Administered 10/17/24 09:26 Dose 1 gm .ROUTE .STK-MED ONE Nitroglycerin 1 gm 10/17/24 09:28 10/17/24 09:29 Nitroglycerin 1 Gm Packet TOP 10/17/24 09:29 1 gm STAT ONE Administration Lab/Rad Data: Laboratory Result Diagrams 10/17/24 09:29 10/17/24 09:29 Laboratory Results 10/17/24 10/17/24 10/17/24 Range/Units 10:49 10:49 09:29 WBC (3.98-10.04) x10^3/uL RBC (3.93-5.22) x10^6/uL Hgb (11.2-15.7) g/dL Hct (34.1-44.9) % MCV (79.4-94.8) fL MCH (25.6-32.2) pg MCHC (32.2-35.5) g/dL RDW (11.7-14.4) % Plt Count (182-369) x10^3/uL MPV (9.4-12.3) fL Gran % (34.0-71.1) % Immature Gran % (Auto) (0.001-0.429) % Nucleat RBC Rel Count (0.00-0.2) % Eos # (Auto) (0.04-0.36) x10^3/uL Immature Gran # (Auto) (0.001-0.031) x10^3u/L Absolute Lymphs (auto) (1.18-3.74) x10^3/uL Absolute Monos (auto) (0.24-0.86) x10^3/uL Absolute Nucleated RBC (0.00-0.012) x10^3u/L Lymphocytes % (19.3-51.7) % Monocytes % (4.7-12.5) % Eosinophils % (0.7-5.8) % Basophils % (0.1-1.2) % Absolute Granulocytes (1.56-6.13) x10^3/uL Basophils # (0.01-0.08) x10^3/uL D-Dimer (0.0-0.50) mg/L Sodium (135-145) mmol/L Potassium (3.5-5.1) mmol/L Chloride (98-107) mmol/L Carbon Dioxide (22-30) mmol/L Anion Gap (5-15) MEQ/L BUN (7-17) mg/dL Creatinine (0.52-1.04) mg/dL Estimated GFR ML/MIN Glucose (74-106) mg/dL Calcium (8.4-10.2) mg/dL Total Bilirubin (0.2-1.3) mg/dL AST (14-36) U/L ALT (0-35) U/L Alkaline Phosphatase (38-126) U/L Troponin I < 0.012 (0.000-0.033) ng/mL NT-Pro-B Natriuret Pep (<300) pg/mL Serum Total Protein (6.3-8.2) g/dL Albumin (3.5-5.0) g/dL Urine Color Yellow (Yellow) Urine Appearance Clear (Clear) Urine pH 6.5 (4.6-8.0) Ur Specific Rozel <=1.005 (1.005-1.030) Urine Protein Negative (Negative) Urine Glucose (UA) Negative (Negative) mg/dL Urine Ketones Negative (Negative) Urine Blood Negative (Negative) Urine Nitrite Negative (Negative) Urine Bilirubin Negative (Negative) Urine Urobilinogen 0.2 (0.2) mg/dL Ur Leukocyte Esterase Negative (Negative) U Hyaline Cast (Auto) NONE SEEN (0-2) /LPF Urine Microscopic RBC 0-2 (0-5) /HPF Urine Microscopic WBC 0-2 (0-5) /HPF Ur Epithelial Cells None Seen (None Seen) /HPF Urine Bacteria None Seen (None Seen) /HPF Urine Culture Reflexed NO (NO) Urine Opiates Level NEGATIVE (NEGATIVE) Ur Methadone NEGATIVE (NEGATIVE) Urine Barbiturates NEGATIVE (NEGATIVE) Ur Phencyclidine (PCP) NEGATIVE (NEGATIVE) Urine Amphetamine NEGATIVE (NEGATIVE) U Benzodiazepine Level NEGATIVE (NEGATIVE) Urine Cocaine NEGATIVE (NEGATIVE) Urine Marijuana (THC) NEGATIVE (NEGATIVE) 10/17/24 10/17/24 10/17/24 Range/Units 09:29 09:29 09:29 WBC 4.9 (3.98-10.04) x10^3/uL RBC 3.83 L (3.93-5.22) x10^6/uL Hgb 11.8 (11.2-15.7) g/dL Hct 36.1 (34.1-44.9) % MCV 94.3 (79.4-94.8) fL MCH 30.8 (25.6-32.2) pg MCHC 32.7 (32.2-35.5) g/dL RDW 12.7 (11.7-14.4) % Plt Count 199 (182-369) x10^3/uL MPV 10.4 (9.4-12.3) fL Gran % 56.7 (34.0-71.1) % Immature Gran % (Auto) 0.4 (0.001-0.429) % Nucleat RBC Rel Count 0.0 (0.00-0.2) % Eos # (Auto) 0.09 (0.04-0.36) x10^3/uL Immature Gran # (Auto) 0.02 (0.001-0.031) x10^3u/L Absolute Lymphs (auto) 1.48 (1.18-3.74) x10^3/uL Absolute Monos (auto) 0.48 (0.24-0.86) x10^3/uL Absolute Nucleated RBC 0.00 (0.00-0.012) x10^3u/L Lymphocytes % 30.1 (19.3-51.7) % Monocytes % 9.8 (4.7-12.5) % Eosinophils % 1.8 (0.7-5.8) % Basophils % 1.2 (0.1-1.2) % Absolute Granulocytes 2.78 (1.56-6.13) x10^3/uL Basophils # 0.06 (0.01-0.08) x10^3/uL D-Dimer 0.20 (0.0-0.50) mg/L Sodium 141 (135-145) mmol/L Potassium 4.1 (3.5-5.1) mmol/L Chloride 107 (98-107) mmol/L Carbon Dioxide 26 (22-30) mmol/L Anion Gap 11.3 (5-15) MEQ/L BUN 17 (7-17) mg/dL Creatinine 1.16 H (0.52-1.04) mg/dL Estimated GFR 53.6 ML/MIN Glucose 99 (74-106) mg/dL Calcium 10.2 (8.4-10.2) mg/dL Total Bilirubin 0.40 (0.2-1.3) mg/dL AST 33 (14-36) U/L ALT 23 (0-35) U/L Alkaline Phosphatase 70 (38-126) U/L Troponin I (0.000-0.033) ng/mL NT-Pro-B Natriuret Pep 947 (<300) pg/mL Serum Total Protein 7.1 (6.3-8.2) g/dL Albumin 4.3 (3.5-5.0) g/dL Urine Color (Yellow) Urine Appearance (Clear) Urine pH (4.6-8.0) Ur Specific Rozel (1.005-1.030) Urine Protein (Negative) Urine Glucose (UA) (Negative) mg/dL Urine Ketones (Negative) Urine Blood (Negative) Urine Nitrite (Negative) Urine Bilirubin (Negative) Urine Urobilinogen (0.2) mg/dL Ur Leukocyte Esterase (Negative) U Hyaline Cast (Auto) (0-2) /LPF Urine Microscopic RBC (0-5) /HPF Urine Microscopic WBC (0-5) /HPF Ur Epithelial Cells (None Seen) /HPF Urine Bacteria (None Seen) /HPF Urine Culture Reflexed (NO) Urine Opiates Level (NEGATIVE) Ur Methadone (NEGATIVE) Urine Barbiturates (NEGATIVE) Ur Phencyclidine (PCP) (NEGATIVE) Urine Amphetamine (NEGATIVE) U Benzodiazepine Level (NEGATIVE) Urine Cocaine (NEGATIVE) Urine Marijuana (THC) (NEGATIVE) - Progress Progress: improved Air Movement: good Progress Note: 10/17/24 11:57 59-year-old is evaluated in the ER for left-sided chest pain, nonreproducible, no aggravating or relieving factors with some palpitations. EKG is normal sinus rhythm with no acute ST elevations and negative initial troponins. D-dimer is negative. Chest x-ray questionable infiltrate versus atelectasis in the left side. Patient oxygen saturation is 98% on room air and no tachypnea or tachycardia. She has 650 of aspirin at home earlier today. Half inch Nitropaste applied and patient's symptoms are improved. She does not have any cardiac workup done in the recent past. I believe patient would benefit with observation, trending of cardiac enzyme and further cardiology evaluation. Discussed with Dr. More, reviewed history, workup and agreed with admission. Blood Culture(s) Obtained: No Antibiotics given: No Discussed with : Tra Will see patient in: hospital (observation) Counseled pt/family regarding: lab results, diagnosis, rad results Medical Desision Making - Discussion of managment Care discussed with:: hospitalist Reviewed:: Test results Agreed on:: Treatment plan, place in obs Will see patient: in hospital - Risk of complications The pt has a mod risk of morbidity or mortality based on: Need for prescription drug management The pt has a high risk of morbidity or mortality based on: Decision regarding hospitilization or escalation of hosp level of care - Departure Departure Disposition: Observation Clinical Impression: Chest pain, rule out acute myocardial infarction Condition: Stable Critical Care Time: No Referrals: LELO PELAEZ MD [Primary Care Provider] - Follow up/PCP as directed
[2024-10-17] MEDS ORDERED: TYLENOL EXTRA STRENGTH 500 MG ONE (12:32)
[2024-10-17] MEDS: TYLENOL EXTRA STRENGTH 500 MG PO STA (12:33)
--- NOTE | 2024-10-17 13:22 | PCM.HP ---
History of Present Illness - Chief Complaint Chief Complaint: chest pain rule out AMI Date: 10/17/24 History of Present Illness: is a 59 year old female with PMHX of hypertension, hyperlipidemia, and anxiety. She presented in the ER with complaint of left-sided chest pain off and on since yesterday worse with expiration. Patient reports she woke up in the middle of the night with pain in the left side, sharp aching mild, no significant aggravating or relieving factors. Denies associated shortness of breath but does report palpitations off and on. No cough fever or chills reported. Denies any history of coronary artery disease. Has taken 650 of as pirin earlier today because he was also having mild headache. She is no longer having a H/A. CXR shows Left lung base possible pneumonia. Procal pending. She is not SOB and labs are overall non-concerning. Flu/ COVID/ RSV ordered. She reports she has been eating and drinking well. + AUDREY and IVF started. Trop x1 negative. She denies SOB, abd. pain, N/V/D. - Review of Systems Constitutional: No Fever, No Chills Eyes: No Symptoms Ears, Nose, & Throat: No Symptoms Respiratory: No Cough, No Short Of Breath Cardiac: Chest Pain, No Edema, No Syncope Abdominal/Gastrointestinal: No Abdominal Pain, No Nausea, No Vomiting, No Diarrhea Genitourinary Symptoms: No Dysuria Musculoskeletal: No Back Pain, No Neck Pain Skin: No Rash Neurological: No Dizziness, No Focal Weakness, No Sensory Changes Psychological: No Symptoms Endocrine: No Symptoms Hematologic/Lymphatic: No Symptoms Immunological/Allergic: No Symptoms Medications & Allergies Home Medications: Home Medication List Metoprolol Succinate 25 mg Xl* [Toprol-Xl 25MG Tablets] 25 mg PO TID 11/12/20 [History Confirmed 10/17/24] HydrALAzine HCL 25 MG TAB [Apresoline 25 MG TABLET] 25 mg PO QID 04/04/21 [History Confirmed 10/17/24] Losartan Potassium [Cozaar] 25 mg PO QID 04/04/21 [History Confirmed 10/17/24] cloNIDine HCL [Clonidine HCl ER] 0.2 mg PO BID 09/14/21 [History Confirmed 10/17/24] lamoTRIgine [Lamotrigine] 150 mg PO BID 09/14/21 [History Confirmed 10/17/24] Aspirin EC 81 mg [Ecotrin 81 mg] 81 mg PO DAILY 10/17/24 [History Confirmed 10/17/24] Buspirone HCl 5 mg [Buspar 5 mg] 10 mg PO QID 10/17/24 [History Confirmed 10/17/24] Clonidine HCl 0.1 mg [Clonidine 0.1 mg Tablet] 0.2 mg PO DAILY PRN PRN 10/17/24 [History Confirmed 10/17/24] Galcanezumab-Gnlm [Emgality Pen] 120 mg SQ UD 10/17/24 [History Confirmed 10/17/24] Hydroxyzine HCl 25 mg [Atarax 25 mg] 25 mg PO DAILY PRN PRN 10/17/24 [History Confirmed 10/17/24] Levothyroxine Sodium 25 Mcg [Synthroid 25 Mcg] 25 - 50 mcg PO DAILY 10/17/24 [History Confirmed 10/17/24] Ospemifene [Osphena] 60 mg PO DAILY 10/17/24 [History Confirmed 10/17/24] Rimegepant Sulfate [Nurtec Odt] 75 mg SL DAILY PRN 10/17/24 [History Confirmed 10/17/24] Tizanidine HCl 4 mg [Zanaflex 4 MG] 4 mg PO BID 10/17/24 [History Confirmed 10/17/24] Allergies/Adverse Reactions: Allergies Allergy/AdvReac Type Severity Reaction Status Date / Time No Known Drug Allergies Allergy Verified 10/17/24 08:39 - Past Medical History Past Medical History: Yes Neurological History: Migraines, Other ENT History: No Pertinent History Cardiac History: Hypertension Respiratory History: No Pertinent History Endocrine Medical History: Hyperthyroidism, Hypothyroidism Musculoskelatal History: Other GI Medical History: Polyps History: No Pertinent History Pyscho-Social History: Anxiety Reproductive Disorders: No Pertinent History Comment: SENSORY SEIZURES, TACHYCARDIA, Pituitary growth, Fiberglass Laminator: Dr. Goodrich - Past Surgical History Past Surgical History: Yes Neuro Surgical History: No Pertinent History Cardiac History: No Pertinent History Respiratory Surgery: No Pertinent History GI Surgical History: No Pertinent History Genitourinary Surgical Hx: Other Musculskeletal Surgical Hx: Other Female Surgical History: No Pertinent History Other Surgical History: CONSTRUCTION staple removed from heel; uterine polyp removal; breast implant removal - Social History Smoking Status: Never smoker Exposure to second hand smoke: No Alcohol: None Drug Use: none - Social Determinants of Health Will the patient participate in the screening: Yes Do you worry about a steady place to live?: No Do you have any problems with any of the following?: No known problems In the past 12 months,have you had to go without utilities?: No Have you or anyone in your house had to go without enough: No Transportation Issues: No Has anyone in your support network made you feel unsafe?: No - Physical Exam Vital Signs: Vital Signs - 24 hr Temp Pulse Resp BP BP Pulse Ox 10/17/24 12:30 117/66 10/17/24 12:25 98 10/17/24 12:00 60 14 119/61 97 10/17/24 11:30 56 L 12 122/61 98 10/17/24 11:00 57 L 20 106/58 98 10/17/24 10:30 60 20 99/57 97 10/17/24 10:00 56 L 13 113/62 97 10/17/24 09:30 58 L 19 119/65 95 10/17/24 09:07 99 10/17/24 09:00 60 15 152/74 99 10/17/24 08:40 98.7 F 18 152/89 99 10/17/24 08:37 60 17 152/89 99 General Appearance: no apparent distress, alert Neurologic Exam: alert, oriented x 3, cooperative, normal mood/affect, nml cerebellar function, nml station & gait, sensation nml, No motor deficits Eye Exam: PERRL/EOMI, eyes nml inspection Ears, Nose, Throat Exam: normal ENT inspection, TMs normal, pharynx normal, moist mucous membranes Neck Exam: normal inspection, non-tender, supple, full range of motion Respiratory Exam: normal breath sounds, lungs clear, No respiratory distress Cardiovascular Exam: regular rate/rhythm, normal heart sounds, normal peripheral pulses Gastrointestinal/Abdomen Exam: soft, normal bowel sounds, No tenderness, No mass Back Exam: normal inspection, normal range of motion, No CVA tenderness, No vertebral tenderness Extremity Exam: normal inspection, normal range of motion, pelvis stable Skin Exam: normal color, warm, dry, No rash Lymphatic Exam: No adenopathy Results - Labs Lab/Micro Results: Lab Results-Last 24 Hours 10/17/24 10/17/24 10/17/24 Range/Units 09:29 09:29 09:29 WBC 4.9 (3.98-10.04) x10^3/uL RBC 3.83 L (3.93-5.22) x10^6/uL Hgb 11.8 (11.2-15.7) g/dL Hct 36.1 (34.1-44.9) % MCV 94.3 (79.4-94.8) fL MCH 30.8 (25.6-32.2) pg MCHC 32.7 (32.2-35.5) g/dL RDW 12.7 (11.7-14.4) % Plt Count 199 (182-369) x10^3/uL MPV 10.4 (9.4-12.3) fL Gran % 56.7 (34.0-71.1) % Immature Gran % (Auto) 0.4 (0.001-0.429) % Nucleat RBC Rel Count 0.0 (0.00-0.2) % Eos # (Auto) 0.09 (0.04-0.36) x10^3/uL Immature Gran # (Auto) 0.02 (0.001-0.031) x10^3u/L Absolute Lymphs (auto) 1.48 (1.18-3.74) x10^3/uL Absolute Monos (auto) 0.48 (0.24-0.86) x10^3/uL Absolute Nucleated RBC 0.00 (0.00-0.012) x10^3u/L Lymphocytes % 30.1 (19.3-51.7) % Monocytes % 9.8 (4.7-12.5) % Eosinophils % 1.8 (0.7-5.8) % Basophils % 1.2 (0.1-1.2) % Absolute Granulocytes 2.78 (1.56-6.13) x10^3/uL Basophils # 0.06 (0.01-0.08) x10^3/uL D-Dimer 0.20 (0.0-0.50) mg/L Sodium 141 (135-145) mmol/L Potassium 4.1 (3.5-5.1) mmol/L Chloride 107 (98-107) mmol/L Carbon Dioxide 26 (22-30) mmol/L Anion Gap 11.3 (5-15) MEQ/L BUN 17 (7-17) mg/dL Creatinine 1.16 H (0.52-1.04) mg/dL Estimated GFR 53.6 ML/MIN Glucose 99 (74-106) mg/dL Calcium 10.2 (8.4-10.2) mg/dL Total Bilirubin 0.40 (0.2-1.3) mg/dL AST 33 (14-36) U/L ALT 23 (0-35) U/L Alkaline Phosphatase 70 (38-126) U/L Troponin I (0.000-0.033) ng/mL NT-Pro-B Natriuret Pep 947 (<300) pg/mL Serum Total Protein 7.1 (6.3-8.2) g/dL Albumin 4.3 (3.5-5.0) g/dL Urine Color (Yellow) Urine Appearance (Clear) Urine pH (4.6-8.0) Ur Specific Stanley (1.005-1.030) Urine Protein (Negative) Urine Glucose (UA) (Negative) mg/dL Urine Ketones (Negative) Urine Blood (Negative) Urine Nitrite (Negative) Urine Bilirubin (Negative) Urine Urobilinogen (0.2) mg/dL Ur Leukocyte Esterase (Negative) U Hyaline Cast (Auto) (0-2) /LPF Urine Microscopic RBC (0-5) /HPF Urine Microscopic WBC (0-5) /HPF Ur Epithelial Cells (None Seen) /HPF Urine Bacteria (None Seen) /HPF Urine Culture Reflexed (NO) Urine Opiates Level (NEGATIVE) Ur Methadone (NEGATIVE) Urine Barbiturates (NEGATIVE) Ur Phencyclidine (PCP) (NEGATIVE) Urine Amphetamine (NEGATIVE) U Benzodiazepine Level (NEGATIVE) Urine Cocaine (NEGATIVE) Urine Marijuana (THC) (NEGATIVE) 10/17/24 10/17/24 10/17/24 Range/Units 09:29 10:49 10:49 WBC (3.98-10.04) x10^3/uL RBC (3.93-5.22) x10^6/uL Hgb (11.2-15.7) g/dL Hct (34.1-44.9) % MCV (79.4-94.8) fL MCH (25.6-32.2) pg MCHC (32.2-35.5) g/dL RDW (11.7-14.4) % Plt Count (182-369) x10^3/uL MPV (9.4-12.3) fL Gran % (34.0-71.1) % Immature Gran % (Auto) (0.001-0.429) % Nucleat RBC Rel Count (0.00-0.2) % Eos # (Auto) (0.04-0.36) x10^3/uL Immature Gran # (Auto) (0.001-0.031) x10^3u/L Absolute Lymphs (auto) (1.18-3.74) x10^3/uL Absolute Monos (auto) (0.24-0.86) x10^3/uL Absolute Nucleated RBC (0.00-0.012) x10^3u/L Lymphocytes % (19.3-51.7) % Monocytes % (4.7-12.5) % Eosinophils % (0.7-5.8) % Basophils % (0.1-1.2) % Absolute Granulocytes (1.56-6.13) x10^3/uL Basophils # (0.01-0.08) x10^3/uL D-Dimer (0.0-0.50) mg/L Sodium (135-145) mmol/L Potassium (3.5-5.1) mmol/L Chloride (98-107) mmol/L Carbon Dioxide (22-30) mmol/L Anion Gap (5-15) MEQ/L BUN (7-17) mg/dL Creatinine (0.52-1.04) mg/dL Estimated GFR ML/MIN Glucose (74-106) mg/dL Calcium (8.4-10.2) mg/dL Total Bilirubin (0.2-1.3) mg/dL AST (14-36) U/L ALT (0-35) U/L Alkaline Phosphatase (38-126) U/L Troponin I < 0.012 (0.000-0.033) ng/mL NT-Pro-B Natriuret Pep (<300) pg/mL Serum Total Protein (6.3-8.2) g/dL Albumin (3.5-5.0) g/dL Urine Color Yellow (Yellow) Urine Appearance Clear (Clear) Urine pH 6.5 (4.6-8.0) Ur Specific Stanley <=1.005 (1.005-1.030) Urine Protein Negative (Negative) Urine Glucose (UA) Negative (Negative) mg/dL Urine Ketones Negative (Negative) Urine Blood Negative (Negative) Urine Nitrite Negative (Negative) Urine Bilirubin Negative (Negative) Urine Urobilinogen 0.2 (0.2) mg/dL Ur Leukocyte Esterase Negative (Negative) U Hyaline Cast (Auto) NONE SEEN (0-2) /LPF Urine Microscopic RBC 0-2 (0-5) /HPF Urine Microscopic WBC 0-2 (0-5) /HPF Ur Epithelial Cells None Seen (None Seen) /HPF Urine Bacteria None Seen (None Seen) /HPF Urine Culture Reflexed NO (NO) Urine Opiates Level NEGATIVE (NEGATIVE) Ur Methadone NEGATIVE (NEGATIVE) Urine Barbiturates NEGATIVE (NEGATIVE) Ur Phencyclidine (PCP) NEGATIVE (NEGATIVE) Urine Amphetamine NEGATIVE (NEGATIVE) U Benzodiazepine Level NEGATIVE (NEGATIVE) Urine Cocaine NEGATIVE (NEGATIVE) Urine Marijuana (THC) NEGATIVE (NEGATIVE) - Radiology Impressions Radiology Exams & Impressions: Radiology Procedures Category Date Time Status CHEST 1 VIEW (PORTABLE) Stat Exams 10/17/24 09:05 Completed Assessment/Plan (1) Chest pain, rule out acute myocardial infarction Current Visit: Yes Status: Acute Assessment & Plan: - Trop x3 trend- 1st trop negative - CXR reviewed - CBC, CMP reviewed - tele - nitropaste gave in ER w/o any improvement - sxs likely 2:2 findings on CXR of possible LLL pneumonia - Follows Dr. Goodrich - Echo - TSH - Lipid panel from 01/29/24 reviewed and all WNL Code(s): R07.9 - CHEST PAIN, UNSPECIFIED (2) AUDREY (acute kidney injury) Current Visit: Yes Status: Acute Assessment & Plan: - NS @ 75ML/hr started - Creat 1.16 - baseline 1.06 Code(s): N17.9 - ACUTE KIDNEY FAILURE, UNSPECIFIED (3) Edema of both lower extremities Current Visit: Yes Status: Acute Assessment & Plan: - pt reports this is new - TEDS - ECHO - BNP 947 Code(s): R60.0 - LOCALIZED EDEMA (4) Abnormal CXR Current Visit: Yes Status: Acute Assessment & Plan: - CXR: Portable chest again hyperinflated with new minimal left base infiltrate versus atelectasis. Remaining heart and lungs unremarkable. Bony thorax intact. - Procal - Consider antibiotics - RA 98% - Flu/COVID/RSV pending Code(s): R93.89 - ABNORMAL FINDINGS ON DX IMAGING OF OTH BODY STRUCTURES (5) Hypothyroid Current Visit: No Status: Chronic Assessment & Plan: - continue synthroid -TSH Code(s): E03.9 - HYPOTHYROIDISM, UNSPECIFIED (6) Anxiety Current Visit: No Status: Chronic Assessment & Plan: - Continue home meds Code(s): F41.9 - ANXIETY DISORDER, UNSPECIFIED (7) Hypertension Current Visit: No Status: Chronic Assessment & Plan: - Stable - Continue home meds VTE: Heparin Next of KIN: Chase Burnett -[phone] D/C: tomorrow Code status: Full Code(s): I10 - ESSENTIAL (PRIMARY) HYPERTENSION Telemedicine Encounter - Telemedicine Encounter Telemedicine Encounter: "The entirety of this encounter was performed via Telemedicine" This visit was performed using real-time audio and video connection between my location and thepatients locationwith the assistance of a surrogateat the patients location. Written or verbal consent was obtained from the patient/g uardian to perform this visit usingsynchronoustelemedicine technology. Any patient questions regarding the telemedicine interaction were answered.
[2024-10-17] MEDS ORDERED: CLONIDINE 0.1 MG TABLET PO PRN (13:48)
[2024-10-17] MEDS ORDERED: NON-FORMULARY ITEM (Rimegepant Sulfate [Nurtec Odt] 75 MG Tab.Rapdis) SL PRN (13:48)
[2024-10-17] MEDS ORDERED: GALCANEZUMAB GNLM 120 MG/ML SQ SCH (14:00)
[2024-10-17] MEDS: Sodium Chloride 0.9% 1000 ML 1,000 ML IV SCH (14:00)
[2024-10-17 14:29] LABS: INFLUENZA A NEGATIVE (NEGATIVE); INFLUENZA B NEGATIVE (NEGATIVE); RESPIRATORY SYNCTIAL VIRUS NEGATIVE (NEGATIVE); SARS-CoV-2 Xpert Express NEGATIVE (NEGATIVE)
[2024-10-17] MEDS ORDERED: MEDICATION INTERVENTION MC SCH ×4 (14:45)
[2024-10-17] MEDS: BUSPAR 5 MG PO SCH (15:37)
[2024-10-17] MEDS: Toprol-Xl 25MG Tablets PO SCH (15:38)
[2024-10-17] MEDS: Apresoline 25 MG TABLET PO SCH (15:38)
[2024-10-17] MEDS: Cozaar 50 MG PO SCH (15:38)
[2024-10-17] MEDS ORDERED: NON-FORMULARY ITEM (Losartan Potassium [Cozaar] 25 MG Tablet) PO SCH (17:00)
[2024-10-17] MEDS: ROCEPHIN 1 GM / 100 ML NaCl 1 GM/100 ML IVPB IV SCH (18:46)
[2024-10-17] MEDS ORDERED: NON-FORMULARY ITEM (Melatonin [Melatonin] 5 MG Tablet) PO SCH (22:00)
[2024-10-17] MEDS ORDERED: CLONIDINE HCL 0.1 MG PO SCH (22:00)
[2024-10-17] MEDS ORDERED: LAMOTRIGINE 25 MG PO SCH (22:00)
[2024-10-17] MEDS: CLONIDINE 0.1 MG TABLET PO SCH (22:18)
[2024-10-17] MEDS: MELATONIN PO SCH (22:18)
[2024-10-17] MEDS: lamICTAL 100MG TABLET PO SCH (22:18)
[2024-10-17] MEDS: HEPARIN 5000 UNITS/0.5 ML (HIGH RISK MED) SQ SCH (22:19)
[2024-10-17] MEDS: Zithromax 500 MG/ 250 ML NaCl Premix 500 MG/250 ML IVPB IV SCH (22:28)
[2024-10-18 04:16] VITALS: RESP 18
[2024-10-18] MEDS: Zanaflex 4 MG PO PRN (04:24)
[2024-10-18 04:51] LABS: Hematocrit 32.5 % (34.1-44.9); Hemoglobin 10.3 g/dL (11.2-15.7); Mean Cell Volume 95.3 fL (79.4-94.8); Mean Corpuscular Hemoglobin 30.2 pg (25.6-32.2); Mean Corpuscular Hgb Concent. 31.7 g/dL (32.2-35.5); Mean Platelet Volume 10.8 fL (9.4-12.3); Platelet Count 171 x10^3/uL (182-369); Red Blood Count 3.41 x10^6/uL (3.93-5.22); Red Cell Distribution Width 12.7 % (11.7-14.4); White Blood Count 4.4 x10^3/uL (3.98-10.04)
[2024-10-18 05:08] LABS: ALBUMIN 3.4 g/dL (3.5-5.0); ANION GAP 10.5 MEQ/L (5-15); BILIRUBIN,TOTAL 0.3 mg/dL (0.2-1.3); Calcium 8.8 mg/dL (8.4-10.2); Creatinine 1 1.03 mg/dL (0.52-1.04); EST GLOMERULAR FILTRATION RATE 61.9 ML/MIN; Potassium 3.5 mmol/L (3.5-5.1); Total Protein 5.9 g/dL (6.3-8.2)
[2024-10-18] MEDS: SYNTHROID 25 MCG PO SCH (05:59)
--- NOTE | 2024-10-18 06:34 | PCM.DS ---
Discharge Summary Date of Admission: 10/17/24 12:44 Date of Discharge: 10/18/24 Admitting Physician: RAMEZ ROE MD Primary Care Provider: LELO PELAEZ Allergies Allergies No Known Drug Allergies Allergy (Verified 10/17/24 08:39) Hospital Summary - Hospital Course Hospital Course: is a 59 year old female with PMHX of hypertension, hypothyroidism, hyperlipidemia, and anxiety admitted 10/17/24 with complaints of intermittent left sided chest pain. Receptionist Doctor'S Office Dr. Evans. Patient reported symptoms started the day prior and then woke her up in the middle of the night. She denies any associated symptom, radiation, or aggravating/relieving factors. No known history of CAD. Risk factors include HTN and HLD. Heart score of 2. Upon arrival to ED vitals were stable. EKG NS, normal axis, normal intervals, normal QRS per ED physician read. CXR demonstrates hyperinflated chest with new minimal left base infiltrate. IP treatment with ceftriaxone and azithromycin. Troponin series WNL x 3. Lab findings on admission with creat elevated at 1.16 (baseline around 1) and now wnl at 1.03 , and BNP at 947. UDS negative. Repeat EKG this morning and trop this morning negative. CXR with left base infiltrate, will discharge home with treatment for pneumonia. Advised patient follow up with cardiology Dr. Evans next week - appt made. Patient is agreeable to plan and stable for discharge. Discharge Note New Diagnosis: Chest pain New Medications: cefuroxime/azith Follow Up: PCP/Kp Results pending: Outpatient testing to order: Latest Assessment & Plan (1) Chest pain, rule out acute myocardial infarction - Trop x3 negative -Initial EKG in ED NS, normal axis, normal intervals, normal QRS per ED physician read - CXR reviewed - demonstrates hyperinflated chest with new minimal left base infiltrate - CBC, CMP reviewed and unremarkable - tele - nitropaste given in ER- no improvement - sxs likely 2:2 findings on CXR of possible LLL pneumonia - Follows Dr. Evans - Echo pending -repeat EKG - TSH WNL - Lipid panel from 01/29/24 reviewed and all WNL -UDS negative (2) AUDREY (acute kidney injury) - NS @ 75ML/hr started -discontinue - Creat reviewed from admission at 1.16 - baseline 1- now at 1.03 -Avoid nephrotoxic agents -monitor renal/lytes -resolved (3) Edema of both lower extremities - pt reports this is new - TEDS - ECHO - BNP 947 -resolved Pneumonia - CXR reviewed as stated above - Procal - ceftriaxone/azithromycin initiated - At baseline RA - Flu/COVID/RSV negative (5) Hypothyroid - continue Synthroid -TSH WNL (6) Anxiety - Continue home meds (7) Hypertension - Stable - Continue home meds VTE: Heparin Next of KIN: Chase Burnett -[phone] D/C: tomorrow Code status: Full I spent 35 minutes [id number] with the patient on the day of discharge performing discharge exam, discussing hospital stay and discharge instructions with patient and caregivers, preparation of discharge records, prescriptions & referral forms and addressing any questions/concerns the patient had as documented above. - Vitals & Intake/Output Vital Signs: Vital Signs Temperature 97.5 F 10/18/24 04:00 Pulse Rate 62 10/18/24 04:00 Respiratory Rate 18 10/18/24 04:00 Blood Pressure 120/58 10/18/24 04:00 O2 Sat by Pulse Oximetry 95 10/18/24 04:00 Intake & Output: Intake & Output 10/15/24 10/16/24 10/17/24 10/18/24 11:59 11:59 11:59 11:59 Intake Total 3425 Output Total 2600 Balance 825 Weight 67.4 kg 65.5 kg - Lab Result Diagrams: 10/18/24 04:09 10/18/24 04:09 Lab Results-Last 24 Hrs: Lab Results-Last 24 Hours 10/17/24 10/17/24 10/17/24 Range/Units 09:29 09:29 09:29 WBC 4.9 (3.98-10.04) x10^3/uL RBC 3.83 L (3.93-5.22) x10^6/uL Hgb 11.8 (11.2-15.7) g/dL Hct 36.1 (34.1-44.9) % MCV 94.3 (79.4-94.8) fL MCH 30.8 (25.6-32.2) pg MCHC 32.7 (32.2-35.5) g/dL RDW 12.7 (11.7-14.4) % Plt Count 199 (182-369) x10^3/uL MPV 10.4 (9.4-12.3) fL Gran % 56.7 (34.0-71.1) % Immature Gran % (Auto) 0.4 (0.001-0.429) % Nucleat RBC Rel Count 0.0 (0.00-0.2) % Eos # (Auto) 0.09 (0.04-0.36) x10^3/uL Immature Gran # (Auto) 0.02 (0.001-0.031) x10^3u/L Absolute Lymphs (auto) 1.48 (1.18-3.74) x10^3/uL Absolute Monos (auto) 0.48 (0.24-0.86) x10^3/uL Absolute Nucleated RBC 0.00 (0.00-0.012) x10^3u/L Lymphocytes % 30.1 (19.3-51.7) % Monocytes % 9.8 (4.7-12.5) % Eosinophils % 1.8 (0.7-5.8) % Basophils % 1.2 (0.1-1.2) % Absolute Granulocytes 2.78 (1.56-6.13) x10^3/uL Basophils # 0.06 (0.01-0.08) x10^3/uL D-Dimer 0.20 (0.0-0.50) mg/L Sodium 141 (135-145) mmol/L Potassium 4.1 (3.5-5.1) mmol/L Chloride 107 (98-107) mmol/L Carbon Dioxide 26 (22-30) mmol/L Anion Gap 11.3 (5-15) MEQ/L BUN 17 (7-17) mg/dL Creatinine 1.16 H (0.52-1.04) mg/dL Estimated GFR 53.6 ML/MIN Glucose 99 (74-106) mg/dL Calcium 10.2 (8.4-10.2) mg/dL Total Bilirubin 0.40 (0.2-1.3) mg/dL AST 33 (14-36) U/L ALT 23 (0-35) U/L Alkaline Phosphatase 70 (38-126) U/L Troponin I (0.000-0.033) ng/mL NT-Pro-B Natriuret Pep 947 (<300) pg/mL Serum Total Protein 7.1 (6.3-8.2) g/dL Albumin 4.3 (3.5-5.0) g/dL Procalcitonin (0.030-0.080) ng/mL TSH 3rd Generation (0.470-4.680) mIU/L Urine Color (Yellow) Urine Appearance (Clear) Urine pH (4.6-8.0) Ur Specific [place] (1.005-1.030) Urine Protein (Negative) Urine Glucose (UA) (Negative) mg/dL Urine Ketones (Negative) Urine Blood (Negative) Urine Nitrite (Negative) Urine Bilirubin (Negative) Urine Urobilinogen (0.2) mg/dL Ur Leukocyte Esterase (Negative) U Hyaline Cast (Auto) (0-2) /LPF Urine Microscopic RBC (0-5) /HPF Urine Microscopic WBC (0-5) /HPF Ur Epithelial Cells (None Seen) /HPF Urine Bacteria (None Seen) /HPF Urine Culture Reflexed (NO) Urine Opiates Level (NEGATIVE) Ur Methadone (NEGATIVE) Urine Barbiturates (NEGATIVE) Ur Phencyclidine (PCP) (NEGATIVE) Urine Amphetamine (NEGATIVE) U Benzodiazepine Level (NEGATIVE) Urine Cocaine (NEGATIVE) Urine Marijuana (THC) (NEGATIVE) Influenza Type A Ag (NEGATIVE) Influenza Type B Ag (NEGATIVE) RSV (PCR) (NEGATIVE) SARS-CoV-2 (PCR) (NEGATIVE) 10/17/24 10/17/24 10/17/24 Range/Units 09:29 10:49 10:49 WBC (3.98-10.04) x10^3/uL RBC (3.93-5.22) x10^6/uL Hgb (11.2-15.7) g/dL Hct (34.1-44.9) % MCV (79.4-94.8) fL MCH (25.6-32.2) pg MCHC (32.2-35.5) g/dL RDW (11.7-14.4) % Plt Count (182-369) x10^3/uL MPV (9.4-12.3) fL Gran % (34.0-71.1) % Immature Gran % (Auto) (0.001-0.429) % Nucleat RBC Rel Count (0.00-0.2) % Eos # (Auto) (0.04-0.36) x10^3/uL Immature Gran # (Auto) (0.001-0.031) x10^3u/L Absolute Lymphs (auto) (1.18-3.74) x10^3/uL Absolute Monos (auto) (0.24-0.86) x10^3/uL Absolute Nucleated RBC (0.00-0.012) x10^3u/L Lymphocytes % (19.3-51.7) % Monocytes % (4.7-12.5) % Eosinophils % (0.7-5.8) % Basophils % (0.1-1.2) % Absolute Granulocytes (1.56-6.13) x10^3/uL Basophils # (0.01-0.08) x10^3/uL D-Dimer (0.0-0.50) mg/L Sodium (135-145) mmol/L Potassium (3.5-5.1) mmol/L Chloride (98-107) mmol/L Carbon Dioxide (22-30) mmol/L Anion Gap (5-15) MEQ/L BUN (7-17) mg/dL Creatinine (0.52-1.04) mg/dL Estimated GFR ML/MIN Glucose (74-106) mg/dL Calcium (8.4-10.2) mg/dL Total Bilirubin (0.2-1.3) mg/dL AST (14-36) U/L ALT (0-35) U/L Alkaline Phosphatase (38-126) U/L Troponin I < 0.012 (0.000-0.033) ng/mL NT-Pro-B Natriuret Pep (<300) pg/mL Serum Total Protein (6.3-8.2) g/dL Albumin (3.5-5.0) g/dL Procalcitonin (0.030-0.080) ng/mL TSH 3rd Generation (0.470-4.680) mIU/L Urine Color Yellow (Yellow) Urine Appearance Clear (Clear) Urine pH 6.5 (4.6-8.0) Ur Specific [place] <=1.005 (1.005-1.030) Urine Protein Negative (Negative) Urine Glucose (UA) Negative (Negative) mg/dL Urine Ketones Negative (Negative) Urine Blood Negative (Negative) Urine Nitrite Negative (Negative) Urine Bilirubin Negative (Negative) Urine Urobilinogen 0.2 (0.2) mg/dL Ur Leukocyte Esterase Negative (Negative) U Hyaline Cast (Auto) NONE SEEN (0-2) /LPF Urine Microscopic RBC 0-2 (0-5) /HPF Urine Microscopic WBC 0-2 (0-5) /HPF Ur Epithelial Cells None Seen (None Seen) /HPF Urine Bacteria None Seen (None Seen) /HPF Urine Culture Reflexed NO (NO) Urine Opiates Level NEGATIVE (NEGATIVE) Ur Methadone NEGATIVE (NEGATIVE) Urine Barbiturates NEGATIVE (NEGATIVE) Ur Phencyclidine (PCP) NEGATIVE (NEGATIVE) Urine Amphetamine NEGATIVE (NEGATIVE) U Benzodiazepine Level NEGATIVE (NEGATIVE) Urine Cocaine NEGATIVE (NEGATIVE) Urine Marijuana (THC) NEGATIVE (NEGATIVE) Influenza Type A Ag (NEGATIVE) Influenza Type B Ag (NEGATIVE) RSV (PCR) (NEGATIVE) SARS-CoV-2 (PCR) (NEGATIVE) 10/17/24 10/17/24 10/17/24 Range/Units 13:30 13:30 13:35 WBC (3.98-10.04) x10^3/uL RBC (3.93-5.22) x10^6/uL Hgb (11.2-15.7) g/dL Hct (34.1-44.9) % MCV (79.4-94.8) fL MCH (25.6-32.2) pg MCHC (32.2-35.5) g/dL RDW (11.7-14.4) % Plt Count (182-369) x10^3/uL MPV (9.4-12.3) fL Gran % (34.0-71.1) % Immature Gran % (Auto) (0.001-0.429) % Nucleat RBC Rel Count (0.00-0.2) % Eos # (Auto) (0.04-0.36) x10^3/uL Immature Gran # (Auto) (0.001-0.031) x10^3u/L Absolute Lymphs (auto) (1.18-3.74) x10^3/uL Absolute Monos (auto) (0.24-0.86) x10^3/uL Absolute Nucleated RBC (0.00-0.012) x10^3u/L Lymphocytes % (19.3-51.7) % Monocytes % (4.7-12.5) % Eosinophils % (0.7-5.8) % Basophils % (0.1-1.2) % Absolute Granulocytes (1.56-6.13) x10^3/uL Basophils # (0.01-0.08) x10^3/uL D-Dimer (0.0-0.50) mg/L Sodium (135-145) mmol/L Potassium (3.5-5.1) mmol/L Chloride (98-107) mmol/L Carbon Dioxide (22-30) mmol/L Anion Gap (5-15) MEQ/L BUN (7-17) mg/dL Creatinine (0.52-1.04) mg/dL Estimated GFR ML/MIN Glucose (74-106) mg/dL Calcium (8.4-10.2) mg/dL Total Bilirubin (0.2-1.3) mg/dL AST (14-36) U/L ALT (0-35) U/L Alkaline Phosphatase (38-126) U/L Troponin I < 0.012 (0.000-0.033) ng/mL NT-Pro-B Natriuret Pep (<300) pg/mL Serum Total Protein (6.3-8.2) g/dL Albumin (3.5-5.0) g/dL Procalcitonin < 0.030 L (0.030-0.080) ng/mL TSH 3rd Generation 2.870 (0.470-4.680) mIU/L Urine Color (Yellow) Urine Appearance (Clear) Urine pH (4.6-8.0) Ur Specific [place] (1.005-1.030) Urine Protein (Negative) Urine Glucose (UA) (Negative) mg/dL Urine Ketones (Negative) Urine Blood (Negative) Urine Nitrite (Negative) Urine Bilirubin (Negative) Urine Urobilinogen (0.2) mg/dL Ur Leukocyte Esterase (Negative) U Hyaline Cast (Auto) (0-2) /LPF Urine Microscopic RBC (0-5) /HPF Urine Microscopic WBC (0-5) /HPF Ur Epithelial Cells (None Seen) /HPF Urine Bacteria (None Seen) /HPF Urine Culture Reflexed (NO) Urine Opiates Level (NEGATIVE) Ur Methadone (NEGATIVE) Urine Barbiturates (NEGATIVE) Ur Phencyclidine (PCP) (NEGATIVE) Urine Amphetamine (NEGATIVE) U Benzodiazepine Level (NEGATIVE) Urine Cocaine (NEGATIVE) Urine Marijuana (THC) (NEGATIVE) Influenza Type A Ag (NEGATIVE) Influenza Type B Ag (NEGATIVE) RSV (PCR) (NEGATIVE) SARS-CoV-2 (PCR) (NEGATIVE) 10/17/24 10/17/24 10/18/24 Range/Units 13:50 17:30 04:09 WBC 4.4 (3.98-10.04) x10^3/uL RBC 3.41 L (3.93-5.22) x10^6/uL Hgb 10.3 L (11.2-15.7) g/dL Hct 32.5 L (34.1-44.9) % MCV 95.3 H (79.4-94.8) fL MCH 30.2 (25.6-32.2) pg MCHC 31.7 L (32.2-35.5) g/dL RDW 12.7 (11.7-14.4) % Plt Count 171 L (182-369) x10^3/uL MPV 10.8 (9.4-12.3) fL Gran % (34.0-71.1) % Immature Gran % (Auto) (0.001-0.429) % Nucleat RBC Rel Count (0.00-0.2) % Eos # (Auto) (0.04-0.36) x10^3/uL Immature Gran # (Auto) (0.001-0.031) x10^3u/L Absolute Lymphs (auto) (1.18-3.74) x10^3/uL Absolute Monos (auto) (0.24-0.86) x10^3/uL Absolute Nucleated RBC (0.00-0.012) x10^3u/L Lymphocytes % (19.3-51.7) % Monocytes % (4.7-12.5) % Eosinophils % (0.7-5.8) % Basophils % (0.1-1.2) % Absolute Granulocytes (1.56-6.13) x10^3/uL Basophils # (0.01-0.08) x10^3/uL D-Dimer (0.0-0.50) mg/L Sodium (135-145) mmol/L Potassium (3.5-5.1) mmol/L Chloride (98-107) mmol/L Carbon Dioxide (22-30) mmol/L Anion Gap (5-15) MEQ/L BUN (7-17) mg/dL Creatinine (0.52-1.04) mg/dL Estimated GFR ML/MIN Glucose (74-106) mg/dL Calcium (8.4-10.2) mg/dL Total Bilirubin (0.2-1.3) mg/dL AST (14-36) U/L ALT (0-35) U/L Alkaline Phosphatase (38-126) U/L Troponin I < 0.012 (0.000-0.033) ng/mL NT-Pro-B Natriuret Pep (<300) pg/mL Serum Total Protein (6.3-8.2) g/dL Albumin (3.5-5.0) g/dL Procalcitonin (0.030-0.080) ng/mL TSH 3rd Generation (0.470-4.680) mIU/L Urine Color (Yellow) Urine Appearance (Clear) Urine pH (4.6-8.0) Ur Specific [place] (1.005-1.030) Urine Protein (Negative) Urine Glucose (UA) (Negative) mg/dL Urine Ketones (Negative) Urine Blood (Negative) Urine Nitrite (Negative) Urine Bilirubin (Negative) Urine Urobilinogen (0.2) mg/dL Ur Leukocyte Esterase (Negative) U Hyaline Cast (Auto) (0-2) /LPF Urine Microscopic RBC (0-5) /HPF Urine Microscopic WBC (0-5) /HPF Ur Epithelial Cells (None Seen) /HPF Urine Bacteria (None Seen) /HPF Urine Culture Reflexed (NO) Urine Opiates Level (NEGATIVE) Ur Methadone (NEGATIVE) Urine Barbiturates (NEGATIVE) Ur Phencyclidine (PCP) (NEGATIVE) Urine Amphetamine (NEGATIVE) U Benzodiazepine Level (NEGATIVE) Urine Cocaine (NEGATIVE) Urine Marijuana (THC) (NEGATIVE) Influenza Type A Ag NEGATIVE (NEGATIVE) Influenza Type B Ag NEGATIVE (NEGATIVE) RSV (PCR) NEGATIVE (NEGATIVE) SARS-CoV-2 (PCR) NEGATIVE (NEGATIVE) 10/18/24 Range/Units 04:09 WBC (3.98-10.04) x10^3/uL RBC (3.93-5.22) x10^6/uL Hgb (11.2-15.7) g/dL Hct (34.1-44.9) % MCV (79.4-94.8) fL MCH (25.6-32.2) pg MCHC (32.2-35.5) g/dL RDW (11.7-14.4) % Plt Count (182-369) x10^3/uL MPV (9.4-12.3) fL Gran % (34.0-71.1) % Immature Gran % (Auto) (0.001-0.429) % Nucleat RBC Rel Count (0.00-0.2) % Eos # (Auto) (0.04-0.36) x10^3/uL Immature Gran # (Auto) (0.001-0.031) x10^3u/L Absolute Lymphs (auto) (1.18-3.74) x10^3/uL Absolute Monos (auto) (0.24-0.86) x10^3/uL Absolute Nucleated RBC (0.00-0.012) x10^3u/L Lymphocytes % (19.3-51.7) % Monocytes % (4.7-12.5) % Eosinophils % (0.7-5.8) % Basophils % (0.1-1.2) % Absolute Granulocytes (1.56-6.13) x10^3/uL Basophils # (0.01-0.08) x10^3/uL D-Dimer (0.0-0.50) mg/L Sodium 140 (135-145) mmol/L Potassium 3.5 (3.5-5.1) mmol/L Chloride 110 H (98-107) mmol/L Carbon Dioxide 23 (22-30) mmol/L Anion Gap 10.5 (5-15) MEQ/L BUN 18 H (7-17) mg/dL Creatinine 1.03 (0.52-1.04) mg/dL Estimated GFR 61.9 ML/MIN Glucose 84 (74-106) mg/dL Calcium 8.8 (8.4-10.2) mg/dL Total Bilirubin 0.30 (0.2-1.3) mg/dL AST 27 (14-36) U/L ALT 19 (0-35) U/L Alkaline Phosphatase 58 (38-126) U/L Troponin I (0.000-0.033) ng/mL NT-Pro-B Natriuret Pep (<300) pg/mL Serum Total Protein 5.9 L (6.3-8.2) g/dL Albumin 3.4 L (3.5-5.0) g/dL Procalcitonin (0.030-0.080) ng/mL TSH 3rd Generation (0.470-4.680) mIU/L Urine Color (Yellow) Urine Appearance (Clear) Urine pH (4.6-8.0) Ur Specific [place] (1.005-1.030) Urine Protein (Negative) Urine Glucose (UA) (Negative) mg/dL Urine Ketones (Negative) Urine Blood (Negative) Urine Nitrite (Negative) Urine Bilirubin (Negative) Urine Urobilinogen (0.2) mg/dL Ur Leukocyte Esterase (Negative) U Hyaline Cast (Auto) (0-2) /LPF Urine Microscopic RBC (0-5) /HPF Urine Microscopic WBC (0-5) /HPF Ur Epithelial Cells (None Seen) /HPF Urine Bacteria (None Seen) /HPF Urine Culture Reflexed (NO) Urine Opiates Level (NEGATIVE) Ur Methadone (NEGATIVE) Urine Barbiturates (NEGATIVE) Ur Phencyclidine (PCP) (NEGATIVE) Urine Amphetamine (NEGATIVE) U Benzodiazepine Level (NEGATIVE) Urine Cocaine (NEGATIVE) Urine Marijuana (THC) (NEGATIVE) Influenza Type A Ag (NEGATIVE) Influenza Type B Ag (NEGATIVE) RSV (PCR) (NEGATIVE) SARS-CoV-2 (PCR) (NEGATIVE) - Radiology Exams Ordered Rad Exams-Entire Visit: Radiology Procedures Category Date Time Status CHEST 1 VIEW (PORTABLE) Stat Exams 10/17/24 09:05 Completed ECHO W/2D AND DOPPLER [US] Routine Exams 10/17/24 14:01 Taken Discharge Exam General Appearance: no apparent distress Neurologic Exam: alert, oriented x 3, cooperative Eye Exam: PERRL Ears, Nose, Throat Exam: normal ENT inspection Neck Exam: normal inspection Respiratory Exam: normal breath sounds, lungs clear Cardiovascular Exam: regular rate/rhythm, normal heart sounds Gastrointestinal/Abdomen Exam: soft, normal bowel sounds Pelvic Exam: deferred Rectal Exam: deferred Back Exam: normal inspection Extremity Exam: normal inspection Skin Exam: normal color Final Diagnosis/Problem List - Final Discharge Diagnosis/Problem (1) Chest pain, rule out acute myocardial infarction Current Visit: Yes Status: Acute Code(s): R07.9 - CHEST PAIN, UNSPECIFIED (2) AUDREY (acute kidney injury) Current Visit: Yes Status: Resolved Code(s): N17.9 - ACUTE KIDNEY FAILURE, UNSPECIFIED (3) Abnormal CXR Current Visit: Yes Status: Acute Code(s): R93.89 - ABNORMAL FINDINGS ON DX IMAGING OF OTH BODY STRUCTURES (4) Edema of both lower extremities Current Visit: Yes Status: Acute Code(s): R60.0 - LOCALIZED EDEMA (5) Anxiety Current Visit: No Status: Chronic Code(s): F41.9 - ANXIETY DISORDER, UNSPECIFIED (6) Hypertension Current Visit: No Status: Chronic Code(s): I10 - ESSENTIAL (PRIMARY) HYPERTENSION (7) Hypothyroid Current Visit: No Status: Chronic Code(s): E03.9 - HYPOTHYROIDISM, UNSPECIFIED (8) Pneumonia Current Visit: Yes Status: Acute Code(s): J18.9 - PNEUMONIA, UNSPECIFIED ORGANISM - Discharge Disposition: Home, Self-Care Condition: Stable Prescriptions: New cefuroxime axetiL [Cefuroxime] 500 mg PO BID 7 Days #14 tablet Azithromycin 250 mg [Zithromax 250 MG TABLET] 250 mg PO DAILY 2 Days #2 tablet Continue Metoprolol Succinate 25 mg Xl* [Toprol-Xl 25MG Tablets] 25 mg PO QID Losartan Potassium [Cozaar] 25 mg PO QID HydrALAzine HCL 25 MG TAB [Apresoline 25 MG TABLET] 25 mg PO QID cloNIDine HCL [Clonidine HCl ER] 0.2 mg PO BID lamoTRIgine [Lamotrigine] 150 mg PO BID Tizanidine HCl 4 mg [Zanaflex 4 MG] 4 mg PO BIDPRN PRN PRN Reason: Insomnia Ospemifene [Osphena] 60 mg PO DAILY Rimegepant Sulfate [Nurtec Odt] 75 mg SL DAILY PRN PRN Reason: Headache Galcanezumab-Gnlm [Emgality Pen] 120 mg SQ UD Aspirin EC 81 mg [Ecotrin 81 mg] 81 mg PO DAILY Clonidine HCl 0.1 mg [Clonidine 0.1 mg Tablet] 0.2 mg PO DAILY PRN PRN PRN Reason: B/P >140/80 Buspirone HCl 5 mg [Buspar 5 mg] 10 mg PO QID Hydroxyzine HCl 25 mg [Atarax 25 mg] 25 mg PO DAILY PRN PRN PRN Reason: Anxiety Levothyroxine Sodium 25 Mcg [Synthroid 25 Mcg] 25 mcg PO UD Cyanocobalamin 500 Mcg [Vitamin B-12 500 MCG] 1,000 mcg PO DAILY Calcium Carbonate/Vitamin D3 [Calcium 600 mg-D3 20 Mcg Cplt] 1 tab PO DAILY Glucosam/Chond/Collagen/Hyalur [Glucosamine Chondroitin Cap] 1 cap PO DAILY Mv-Mn/Folic AC/Calcium/Vit K1 [Women's 50 Plus Daily Formula] 1 tab PO DAILY Melatonin 5 mg PO HS Levothyroxine Sodium 25 Mcg [Synthroid 25 Mcg] 50 mcg PO UD Follow up with: MIGNON EVANS [CONSULTING PHYSICIAN] - Call for Appointment LELO PELAEZ MD [Primary Care Provider] - 10/24/24 10:45 am
[2024-10-18 07:36] VITALS: O2SAT 97
[2024-10-18] MEDS: ATARAX 25 MG PO PRN (07:48)
[2024-10-18] MEDS ORDERED: VIT K1 PO SCH (10:00)
[2024-10-18] MEDS ORDERED: CALCIUM CARBONATE PO SCH (10:00)
[2024-10-18] MEDS ORDERED: CALCIUM PO SCH (10:00)
[2024-10-18] MEDS ORDERED: OSPEMIFENE 60 MG PO SCH (10:00)
[2024-10-18] MEDS ORDERED: [UNRECOGNIZED DRUG - OTHER] PO SCH (10:00)
[2024-10-18] MEDS ORDERED: FOLIC AC PO SCH (10:00)
[2024-10-18] MEDS ORDERED: VITAMIN D3 PO SCH (10:00)
[2024-10-18] MEDS ORDERED: MV MN PO SCH (10:00)
[2024-10-18] MEDS ORDERED: [UNRECOGNIZED DRUG - OTHER] PO SCH (10:00)
[2024-10-18] MEDS ORDERED: [UNRECOGNIZED DRUG - MIXTURE] PO SCH (10:00)
[2024-10-18] MEDS: Calcium 500MG W/Vit D Tablet PO SCH (11:10)
[2024-10-18] MEDS: ECOTRIN 81 MG PO SCH (11:11)
[2024-10-18] MEDS: THERAGRAN MULTIVITAMIN PO SCH (11:11)
[2024-10-18] MEDS: Vitamin B-12 500 MCG PO SCH (11:12)
[2024-10-18 11:35] VITALS: BP 145/66; PULSE 54; TEMP 98.5
[2024-10-19] MEDS ORDERED: SYNTHROID 25 MCG PO SCH (07:00)
== END 2024-10-18 14:51 | disposition home or self-care (01) ==
LOC: ED 08:34 → MED SURG 12:44
PROVIDERS: ADMIT Internal Medicine; ATTEND Internal Medicine
DX: R07.9 Chest pain, unspecified (principal); N17.9 Acute kidney failure, unspecified; I10 Essential (primary) hypertension; R93.89 Abnormal findings on diagnostic imaging of other specified body structures; R60.0 Localized edema; F41.9 Anxiety disorder, unspecified; E78.5 Hyperlipidemia, unspecified; E03.9 Hypothyroidism, unspecified; J18.9 Pneumonia, unspecified organism; Z79.899 Other long term (current) drug therapy
CPT/HCPCS: 0241U; 36415; 71045; 80053; 80307; 81001; 83880; 84145; 84443; 84484; 85025; 85027; 85379; 93005; 93041; 93306; 94760; 99284; Q3014; J0456; J0696; J1644; A9270-GY